=== PATIENT | male | born 1965 | race Caucasian/White ===

== ENCOUNTER → 2016-11-02 | Day surgery (SDC) | payer OTHER ==
[~2016-11-02] MED LIST: ALBUTEROL17 GM INH; ALBUTEROL20 ml INH; AMLODIPINE BESYL5 MG PO; CARAFATE PO; CARAFATE1 G PO; CARAFATE1 GM PO; CIPRO PO; COGENTIN PO; COGENTIN0.5 M1 PO; COGENTIN1 M1 PO; ESOMEPRAZOLE MA40 MG PO; FERRO-TIME325 MG PO; FOLIC ACID1 MG PO; GABITRIL4 MG PO; HALDOL PO; HALOPERIDOL10 MG PO; HYDROCODON-ACE1 EAC7 PO; HYDROXYZINE HCL25 M1 PO; IRON325 ( 651 PO; LEVOXYL125 MC1 PO; LIPITOR PO; LOW DOSE ASPIRI81 M1 PO; MAG-OX 400400 M1 PO; MAGNESIUM400 M1 PO; MAGNESIUM400 MG PO; METRONIDAZOLE PO; NEXIUM PO; NORVASC PO; OLANZAPINE ODT10 MG PO; OMEPRAZOLE40 M1 PO; ONDANSETRON HCL4 M1 PO; PANTOPRAZOLE SO40 MG PO; PROTONIX PO; SENSIPAR60 MG PO; SIMVASTATIN40 MG PO; SYNTHROID125 PO; VITAMIN B122500 MCG PO; ZOFRAN ODT4 MG PO; ZOFRANODT PO; ZYPREXA10 MG PO
--- NOTE | ~2016-11-02 | OR ---
Unit #: [id number] #: [id number] Patient: SOL CUEVAS [id number] [address] [address] [id number] O MR#: [id number] NAME: SOL CUEVAS ROOM: Date of Procedure: 11/02/2016 Admission Date: 11/02/2016 Surgeon: Peter Villa M.D. : 1965 Attending Physician: Peter Villa M.D. Primary Care Physician: Marely Luna A.P.R.N. OPERATIVE REPORT JOB NOTE: CC: PRIMARY CARE PHYSICIAN PROCEDURES PERFORMED Esophagogastroduodenoscopy with biopsy, colonoscopy aborted. INDICATIONS FOR PROCEDURE The patient with chronic abdominal pain, chronic diarrhea, history of nonhealing ulcer, nausea, and vomiting, was brought in for upper endoscopy and colonoscopy. MEDICATIONS Monitored anesthesia. POSTOPERATIVE FINDINGS 1. Previous gastrectomy anastomosis was intact. Large ulcer in the diverticulum right after the anastomosis. Chronic appearing moderate to severe gastritis, biopsies taken. 2. Hiatal hernia, nonobstructing esophageal ring. 3. Colonoscopy is aborted because of presence of hard stool in the rectum. PLAN Repeat attempt at colonoscopy for evaluation. Continue aggressive PPI therapy. Follow up on the pathology report. DESCRIPTION OF PROCEDURE The patient was explained of the procedure, risks, and benefits along with risks and benefits of anesthesia. He was brought to the endoscopy room. Propofol anesthesia was given. Bite block was placed. The scope was passed down the mouth into the esophagus, stomach, duodenum, and distal duodenum. Findings as described. Biopsies taken. Gently, I pulled the scope out of the patient's mouth. At this time, we turned him around repositioned for colonoscopy. Rectal exam was done, which was normal. Colonoscope was lubricated, pushed up the rectum. Solid stool seen at this point, we aborted the procedure, pulled the scope out. He tolerated it well. No major complications were seen. Dictated by... Peter Villa M.D. Unit #: [id number] #: [id number] Patient: SOL CUEVAS MIHIR/juan daniel TD: 11/02/2016 22:52 JOB #: [id number] OPERATIVE REPORT X Peter Villa MD PROCEDURE OPERATIVE NOTE
== END | disposition home or self-care (01) ==
LOC: COPS 12:10
DX: K29.50 Unspecified chronic gastritis without bleeding (principal); K22.2 Esophageal obstruction; K44.9 Diaphragmatic hernia without obstruction or gangrene; K52.9 Noninfective gastroenteritis and colitis, unspecified; E89.0 Postprocedural hypothyroidism; F17.210 Nicotine dependence, cigarettes, uncomplicated; K21.9 Gastro-esophageal reflux disease without esophagitis; Z79.899 Other long term (current) drug therapy; Z90.411 Acquired partial absence of pancreas; Z90.49 Acquired absence of other specified parts of digestive tract; Z90.81 Acquired absence of spleen; Z98.890 Other specified postprocedural states
CPT/HCPCS: 88305; 88312

== ENCOUNTER 2017-02-19 09:46 | Inpatient (IN) | payer OTHER ==
[~2017-02-19] VITALS: Ht 177.8 cm; Wt 61.2 kg
--- NOTE | ~2017-02-19 | OR ---
Unit #: [id number] #: [id number] Patient: SOL CUEVAS [id number] [address] [place], [place] [address] [id number] I MR#: [id number] NAME: SOL CUEVAS ROOM: [facility] Date of Procedure: 02/19/2017 Admission Date: 02/19/2017 Surgeon: Al Mack Jr., M.D. : 1965 Attending Physician: Magda Gracia M.D. Referring Physician: Al Mack Jr., M.D. Primary Care Physician: Marely Luna A.P.R.N. OPERATIVE REPORT INDICATION FOR PROCEDURE The patient is a 51-year-old white male, who was admitted through the emergency room complaining of severe abdominal pain that started suddenly on the morning of his admission. The patient was worked up in the emergency room, noted to have evidence of diffuse abdominal tenderness and CT scan revealed a large amount of free air with some inflammatory changes in the left upper quadrant of his abdomen. The patient approximately 6 months ago did have pancreatectomy while at [facility]. He is brought to the operating room at this time for exploratory laparotomy and possible bowel resection. He has also had a partial gastrectomy in the past. PREOPERATIVE DIAGNOSIS Bowel perforation, probably left upper quadrant. POSTOPERATIVE DIAGNOSES Bowel perforation, probably left upper quadrant, noting perforation of the small bowel, colon and stomach, which appeared to be possibly a fistula or walled-off area in the left upper quadrant with a leak. ANESTHESIA General with endotracheal intubation. PROCEDURE PERFORMED Exploratory laparotomy, lysis of adhesions with takedown of splenic flexure and resection of the splenic flexure the colon and resection of proximal jejunum near the ligament of Treitz with [id number] anastomosis and closure of gastric opening along the greater curvature. Also done was a colostomy in the left upper quadrant. DESCRIPTION OF PROCEDURE The patient was positioned in supine position. After being anesthetized and intubated, he was prepped and draped in routine fashion for exploratory laparotomy. An incision was made extending from the xiphoid down to the umbilical area through the scar from his previous surgery. This was carried down through subcutaneous tissue through the linea alba and through scar tissue into the peritoneal cavity. Upon opening the peritoneal cavity, there were multiple intra-abdominal adhesions that required approximately 20 to 30 minutes to take these down for further exploration. The abdomen was explored and there was evidence of leakage of gastric contents and possibly stool in the left upper quadrant. The splenic flexure was taken down and there was evidence of a hole in the Unit #: [id number] #: [id number] Patient: SOL CUEVAS colon as well as in the stomach on the greater curvature and some involvement with the proximal small bowel, near the ligament of Treitz. This was all freed up. The colon was freed up and stapled proximally and distally with a MAGNUS stapling device and the segment removed that was involved. The small bowel was likewise stapled with a MAGNUS stapling device proximal and distal to the area of the opening in it and a segment removed and then reanastomosed [id number] with a MAGNUS stapling device in routine fashion. The remaining opening was closed with a 3-0 Vicryl Garita stitch followed by interrupted 3-0 silk Lembert sutures. The large opening in the side wall of the stomach was freed up, debrided and closed with continuous 3-0 Vicryl Garita stitch followed by interrupted 3-0 silk Lembert sutures. The area was copiously irrigated with saline solution. The stomach was irrigated via the NG tube by anesthesia with no evidence of any air leaks. A 10 mm Mat-Denney drain was placed in the left upper quadrant abdominal wall area in the subphrenic region and brought out through the lateral wound and sutured to the skin with 2-0 silk suture. After hemostasis was noted, the abdomen was copiously irrigated with saline solution with all debris being removed and once this was performed and hemostasis was then noted again. The colon was brought up through a separate stab wound in the left upper quadrant abdominal wall area and sutured to the fascia both internally and externally with interrupted 3-0 Vicryl sutures. It should be noted the spleen had been removed previously along probably with distal pancreatectomy. The midline was then closed with interrupted #1 Vicryl suture single fascial layer closure. Subcutaneous tissue was irrigated and the skin was loosely closed with stainless-steel skin clips. The colostomy was then matured after the staple line was excised with interrupted 3-0 Vicryl sutures. Colostomy bag was applied. Sterile dressings were applied. Estimated blood loss for the entire procedure less than 200 mL. The patient received less than 3000 mL crystalloid solution during the procedure. Sponges and instrument counts were correct x3. No drains used. No complications. The patient was taken to the recovery in stable vital signs in satisfactory condition. Dictated by... Al Mack Jr., M.D. JMB/juan daniel TD: 02/20/2017 08:23 JOB #: [id number] OPERATIVE REPORT Page 1 of 1 X Al Mack MD X PROCEDURE OPERATIVE NOTE
--- NOTE | ~2017-02-19 | CT14 ---
[facility] A Service of [facility] & [facility] RADIOLOGY TEXT RESULTS PATIENT: SOL CUEVAS LOCATION: [address] : [birth year] UNIT #: [id number] AGE: [address]: Magda Gracia MD SEX: M ORDER DR: [id number] [facility] [address] [facility]. [place], [place] [address] [id number] I MR#: [id number] Acc #: [id number] NAME: SOL CUEVAS : 1965 SEX: M STUDY DATE/TIME: 02/26/2017 11:29 UNIT: [facility] ROOM: [facility] STUDY DESCRIPTION: CT Angio Abdomen and Pelvis Attending Physician: Magda Gracia M.D. Referring Physician: Al Mack Jr., M.D. Ordering Physician: Gian Dillon M.D. Primary Care Physician: Marely Luna A.P.R.N. MEDICAL IMAGING REPORT This report is preliminary unless electronic signature is present EXAM CT angiogram abdomen and pelvis INDICATIONS Perforated viscus. Declining hemoglobin. Concerning for active intraabdominal bleeding. TECHNIQUE CT angiogram of the abdomen and pelvis was performed following administration of IV contrast. Coronal and sagittal reformatted images were obtained. The CT exam was performed with one or more of the following radiation dose reduction techniques: automatic exposure control, adjustment of mA and/or kV according to patient size, and iterative reconstruction. COMPARISON: Comparison is made with 02/19/2017. FINDINGS Trace pleural fluid bilaterally. Minimal bibasilar atelectasis. The liver is unremarkable. The gallbladder is unremarkable. There is a small amount of perihepatic simple fluid. Previous splenectomy. Stable appearance of both kidneys with massive right-sided hydronephrosis and cortical thinning consistent with chronic high-grade UPJ obstruction. Multiple stones seen within the right kidney. Similar appearance on the left but much less significant with probable chronic appearing left UPJ obstruction with multiple stones but there is some normal enhancing renal parenchyma. The adrenal glands are unremarkable. There has been a partial pancreatectomy. There is a drain within the left upper quadrant. NG tube in the stomach. Postoperative changes of the stomach. No STS. [facility] A Service of [facility] RADIOLOGY TEXT RESULTS PATIENT: SOL CUEVAS LOCATION: CICCU2 CICCU2-11 : [birth year] UNIT #: [id number] AGE: [address]: Magda Gracia MD SEX: M ORDER DR: evidence for any significant free air. There is a couple tiny gas bubbles in the left upper quadrant which are likely related to recent surgery. The amount of free air compared with the previous study is significantly declined. There is a left-sided ostomy. IVC filter. Pelvis: There is a small amount of free fluid in the pelvis. Cain catheter in the bladder. The colon is unremarkable. Diffuse subcutaneous edema. Bone windows unremarkable. CT angiogram: The abdominal aorta is normal. The iliac arteries are normal. The celiac artery, SMA, inferior mesenteric artery all normal. Both renal arteries are very small in caliber. There is no evidence for any active arterial contrast extravasation. IMPRESSION 1. The CT angiogram demonstrates no evidence for any active arterial contrast extravasation. 2. There is no evidence of any intraperitoneal hemorrhage. There is a small amount of simple free fluid located adjacent to the liver and also within the deep pelvis. 3. Postoperative changes of the stomach with NG tube. No significant free air, aside from a couple tiny air bubbles located next to the stomach most consistent with recent operation. The amount of free air compared with the previous study shows that it is nearly completely resolved. 4. Stable appearance of the kidneys indicating chronic UPJ obstructions most severe on the right. Dictated by... Jerrell Orr M.D. THIS IS AN ELECTRONICALLY VERIFIED REPORT Jerrell Orr M.D. at 02/27/2017 7:51 AM CHRISTINA/sameer TD: 02/26/2017 14:58 JOB #: [id number] MEDICAL IMAGING REPORT Page 1 of 1 COPY
--- NOTE | ~2017-02-19 | HP ---
Unit #: [id number] #: [id number] Patient: SOL CUEVAS [id number] [address] [address] [id number] MR#: [id number] NAME: SOL CUEVAS ROOM: Age: 51 Sex: M Admission Date: 02/19/2017 : 1965 Attending Physician: Ian Bell M.D. Primary Care Physician: Marely Luna A.P.R.N. HISTORY AND PHYSICAL CHIEF COMPLAINT Abdominal pain and low blood pressure. HISTORY OF PRESENT ILLNESS The patient is a 51-year-old male with a past medical history of MEN syndrome, COPD with continued tobacco abuse, schizophrenia, PE, DVT, nephrolithiasis, GERD, who presented to the emergency department for evaluation of the above. The patient states that he was in his usual state of health until the morning of admission when he developed abdominal pain. The patient states that this morning he drank a coke and then experienced abdominal pain that was fairly sudden in onset. He describes it as "pain." There were no alleviating or exacerbating factors. He states that he had chills but no documented fever. He also was somewhat short of breath. He does have a cough at baseline. He had noticed decreased urine output but did void today. Upon EMS arrival, the patient's blood pressure was 70/40. He was brought to the emergency department for further evaluation. In the emergency department, initial blood pressure was 103/64, pulse 88. CT of the abdomen and pelvis was done and showed free air within the abdominal cavity. There is concern for possible perforation in the region of the splenic flexure. Laboratory notable for lactic acid of 3.2, potassium 2.7, BUN 22, creatinine 2.2. He received 1 liter of normal saline in the emergency department as well as 80 mg of Protonix. He is currently on a Protonix drip at 8 mg/h. He also received a GI cocktail as well as Zosyn. Additionally he received 40 mEq of potassium. Also of note, Hemoccult was trace positive per ER documentation. The patient reports one loose stool this morning. He is being admitted to [facility] for evaluation and further treatment. PAST MEDICAL HISTORY 1. Admission to [facility] in November for some type of stomach issue. The patient states that he had a surgical procedure and possibly had a partial gastrectomy. There are no records. 2. Admission to [facility] 07/07 through 07/13/2016 for GI bleed. 3. Multiple endocrine neoplasia syndrome. 4. Schizophrenia. 5. COPD with continue tobacco abuse. 6. GERD. 7. History of PE/DVT, status post IVC filter placement. Unit #: [id number] #: [id number] Patient: SOL CUEVAS 8. Nephrolithiasis. PAST SURGICAL HISTORY 1. Partial pancreatectomy. 2. Daljit fundoplication. 3. Splenectomy. 4. Thyroidectomy. 5. Kidney stone surgery. 6. Cholecystectomy. 7. EGD. ALLERGIES No known allergies. HOME MEDICATIONS Include: 1. Protonix 40 mg b.i.d. 2. Norvasc 5 mg daily. 3. Levothyroxine 125 mcg daily. 4. Haloperidol 5 mg b.i.d. 5. Carafate 1 gram t.i.d. 6. Cogentin 0.5 mg b.i.d. 7. Sensipar 60 mg daily. SOCIAL HISTORY The patient lives with his mother. He smokes a pack of cigarettes daily. Denies alcohol or illicit drug use. Code status is a FULL CODE. FAMILY HISTORY Notable for his mother having gout. His father had malignancy involving the tongue. REVIEW OF SYSTEMS A complete review of systems is negative except as indicated in the HPI. PHYSICAL EXAMINATION VITAL SIGNS: Temperature 94.9, pulse 88, respirations 20, blood pressure 103/64 but has dropped to 87/61, oxygen saturation is 97% on room air. GENERAL: The patient is a male who is awake and alert. HEENT: Head is atraumatic. Mucous membranes are moist. NECK: Supple. Trachea is midline. LUNGS: Clear to auscultation bilaterally with no increased work of breathing. HEART: Regular rate and rhythm. ABDOMEN: Somewhat rigid. He is tender to palpation throughout. He is guarding. Bowel sounds are decreased. RECTAL: Trace heme-positive per ER documentation. EXTREMITIES: Nontender with no pedal edema. NEUROLOGIC: Patient is awake and alert. He is oriented x3. He follows commands. PSYCHIATRIC: Mood and affect are normal. Patient is cooperative. SKIN OF EXAMINED AREAS: Warm and dry. DIAGNOSTIC STUDIES LABORATORY: Lactic acid 3.2. Comprehensive metabolic panel notable for potassium 2.7, chloride 113, CO2 is 14, anion gap is 8, glucose 179, BUN 22, creatinine 2.2, alkaline phosphatase 137, total protein 5.2, albumin 2.5. Amylase and lipase are normal. Urinalysis notable for 3+ leukocyte Unit #: [id number] #: [id number] Patient: SOL CUEVAS esterase, 1+ protein, 2+ blood, 10-25 rbc's, 100-200 wbc's. Troponin less than 0.05. Complete blood count notable for hemoglobin 11.5, hematocrit 37.3. IMAGING: CT of abdomen and pelvis shows free air within the abdomen concerning for possible colonic perforation. CARDIOVASCULAR: EKG shows normal sinus rhythm at a rate of 65 beats per minute. ASSESSMENT The patient is a 51-year-old male with: 1. Septic shock. The patient received 2 liters of normal saline in the emergency department. He is currently on normal saline at 150 mL/h. 2. Perforated viscus. The emergency room physician, Dr. Collado, spoke with Dr. Mack who agrees to see the patient in consultation. 3. Gastrointestinal bleed. The patient received 80 mg of Protonix in the emergency department. He is currently on Protonix drip at 8 mg/h. 4. History of MEN syndrome. 5. History of neuroendocrine tumor of the pancreas, status post partial pancreatectomy. 6. Hypokalemia. The patient received 40 mEq of potassium in the emergency department. 7. Acute kidney injury. The patient's creatinine was 1.4 on 07/13/2016, it is 2.2 today. 8. Non-anion gap metabolic acidosis. 9. Urinary tract infection. 10. Chronic obstructive pulmonary disease with continued tobacco abuse. 11. Schizophrenia. 12. History of PE/DVT, status post IVC filter placement. 13. Nephrolithiasis. 14. Gastroesophageal reflux disease. PLAN 1. Admit to ICU. 2. N.p.o. 3. Additional 1 liter normal saline bolus. 4. Normal saline at 150 mL/h. 5. Levophed drip for MAP greater than 65. 6. Sepsis protocol with repeat lactic acid. 7. Blood cultures x2. 8. Zosyn 3.375 grams IV q.6 h. 9. Protonix drip at 8 mg/h. 10. Hemoglobin and hematocrit q.6 h. 11. Check magnesium level. 12. Urine sodium, creatinine, and eosinophils. 13. Strict I's and O's. 14. Urine culture and sensitivity on urine in the lab. 15. Repeat BMP later this evening to follow up non-anion gap metabolic acidosis. 16. Supplemental oxygen. 17. Get records from [facility]. 18. Consult [facility] regarding perforated viscus. Dr. Mack is aware of the patient. 19. Consult Dr. Tse regarding ICU admission. 20. Lesia hugger per protocol. 21. TSH. 22. Repeat labs in the morning including magnesium and INR. Unit #: [id number] #: [id number] Patient: SOL CUEVAS 23. SCDs for DVT prophylaxis. 24. Additional workup and consultants based on above. 25. Regarding CODE STATUS: Patient is a FULL CODE. Thirty-two minutes critical care time spent in the care of this patient (2:20 to 2:52 p.m.). Dictated by Lashay Bowles M.D. FELIZ/michelle TD: 02/19/2017 15:28 JOB #: [id number] HISTORY AND PHYSICAL Page 1 of 1 X Lashay Bowles MD HISTORY AND PHYSICAL
--- NOTE | ~2017-02-19 | US140 ---
[facility] A Service of [facility] RADIOLOGY TEXT RESULTS PATIENT: SOL CUEVAS LOCATION: [address] : [birth year] UNIT #: [id number] AGE: [address]: Magda Gracia MD SEX: M ORDER DR: [id number] [facility] [address] [facility]. [place], [place] [address] [id number] I MR#: [id number] Acc #: [id number] NAME: SOL CUEVAS : 1965 SEX: M STUDY DATE/TIME: 03/03/2017 11:07 UNIT: [facility] ROOM: [facility] STUDY DESCRIPTION: [facility] Attending Physician: Magda Gracia M.D. Referring Physician: Al Mack Jr., M.D. Ordering Physician: Magda Gracia M.D. Primary Care Physician: Marely Luna A.P.R.N. MEDICAL IMAGING REPORT This report is preliminary unless electronic signature is present EXAMINATION Right upper extremity Doppler venous ultrasound. DATE 03/03/2017 HISTORY Right upper extremity swelling/edema for 1 week. Previous history of deep venous thrombosis and pulmonary embolism. PICC line in right upper extremity since 01/23/2017. COMPARISON None. FINDINGS Real-time cox-scale, color Doppler and spectral Doppler imaging was performed of the right extremity veins. Extensive deep venous thrombosis is seen within the right upper extremities surrounding the patient's PICC line in the right subclavian, axillary and brachial vein distributions. Additionally, superficial venous thrombus is demonstrated with the basilic vein, as well. The right internal jugular vein was patent. IMPRESSION 1. Extensive right upper extremity deep venous thrombosis is documented within the right subclavian, axillary, and brachial veins. 2. Superficial venous thrombus within the right basilic vein. 3. The nurse practitioner on the ICU 3 floor, and I, discussed these pertinent findings at the time of this dictation, 03/03/2017 at 12:26 p.m. He stated that he would convey the findings to the patient's nurse at this time. Dictated by... [facility] A Service of [facility] RADIOLOGY TEXT RESULTS PATIENT: SOL CUEVAS LOCATION: CIC3 CICCU3-21 : [birth year] UNIT #: [id number] AGE: [address]: Magda Gracia MD SEX: M ORDER DR: Ave Billy M.D. THIS IS AN ELECTRONICALLY VERIFIED REPORT Ave Billy M.D. at 03/06/2017 8:36 AM DEN[place]/radha TD: 03/03/2017 15:26 JOB #: [id number] MEDICAL IMAGING REPORT Page 1 of 1 COPY
--- NOTE | ~2017-02-19 | CO ---
Unit #: [id number] #: [id number] Patient: SOL CRUZ [id number] [address] [address] [id number] I MR#: [id number] NAME: SOL CRUZ ROOM: [facility] Age: 51 Sex: M Admission Date: 02/19/2017 : 1965 Attending Physician: Magda Gracia M.D. Primary Care Physician: Marely Luna A.P.R.N. Consultation Date: 02/20/2017 CONSULTATION REPORT REASON FOR CONSULTATION Acute on chronic kidney disease. HISTORY OF PRESENT ILLNESS Mr. Cruz is a 51-year-old male with multiple chronic medical conditions including chronic kidney disease from polycystic kidney disease and MEN syndrome, who was admitted with abdominal pain and low blood pressure. Evaluation in the emergency room revealed a bowel perforation and the patient has already gone in to surgery for exploratory laparotomy and bowel resection with ostomy. Postoperatively, he has received a lot of IV fluids, but urine output has been minimal with only 20 mL of urine recorded. The patient actually states that he feels okay except some postoperative pain. He denies any chest discomfort or shortness of breath. No reports of hematuria. No headache or dizziness. PAST MEDICAL HISTORY Significant for; 1. Chronic polycystic kidney disease. 2. Parathyroid adenoma. 3. Gastrinoma. 4. DVT/PE, requiring filter. 5. Hypothyroidism. 6. Neuroendocrine tumor of the pancreas. 7. GERD. 8. COPD. 9. Paranoid schizophrenia. 10. Nephrolithiasis. 11. Tobacco abuse. PAST SURGICAL HISTORY He has had; 1. Partial pancreatectomy. 2. Daljit fundoplication. 3. Splenectomy. 4. Thyroidectomy. 5. Surgery for kidney stones. 6. Cholecystectomy. HOME MEDICATIONS Protonix 40 mg twice a day, Norvasc 5 mg a day, Levoxyl 125 mcg a day, Haldol 5 mg twice a day, Carafate 1 g p.o. three times a day, Cogentin 0.5 mg twice a day, and Sensipar 60 mg a day. ALLERGIES Unit #: [id number] #: [id number] Patient: SOL CRUZ He has no known drug allergies. FAMILY HISTORY Significant for gout and cancer. No family history of kidney disease. SOCIAL HISTORY The patient is a smoker. History of alcohol abuse. No known illicit drug use. REVIEW OF SYSTEMS A complete 12-point review of systems was completed with the above findings. In addition, he denies any nosebleed or sore throat. No palpitations. No hemoptysis. No swelling. No rashes. No pruritus. No flank pain. No chills. No night sweats or hot flashes. No intolerance to heat or cold. No preadmission bleeding issues. He is unsure about any weight loss. Unless otherwise indicated, the review of systems was negative. PHYSICAL EXAMINATION VITAL SIGNS: The patient is afebrile. Pulse 89, respiratory rate 20, blood pressure 128/81, lowest blood pressure was 87/61, I's and O's are positive, about 6.8 L. GENERAL: This is a 51-year-old male, lying in bed, fairly comfortable, alert, in no acute distress. HEENT: Head is atraumatic and normocephalic. Eyes show pink conjunctivae with no scleral icterus. No nasal drainage or nosebleed. Oropharynx is dry. NECK: Shows no rigidity. No JVD. HEART: Regular rate and rhythm with no murmur or rub appreciated. LUNGS: Without wheezing or rhonchi. Breathing is nonlabored. ABDOMEN: Soft and postop with midline incision dressed. Ostomy in place with no output noted. EXTREMITIES: No lower extremity cyanosis or pitting edema. SKIN: Dry without rashes. GENITOURINARY: Cain catheter is in place with nonbloody urine. MUSCULOSKELETAL: No joint effusions noted. NEUROLOGICAL: Cranial nerves are grossly intact. No gross motor deficits. PSYCHIATRIC: The patient is known to be schizophrenic and does seem to be a little bit confused. DIAGNOSTIC STUDIES LABORATORY RESULTS: Chest x-ray, done this morning, show well-inflated lungs. No acute pulmonary disease. ABG significant for acidosis with a pH of 7.21 with bicarb of just 13. Urine culture on admission was negative. Chemistry this morning; sodium 133, potassium 4.1, Chloride 112, bicarb 13, glucose 193, BUN 29, creatinine up to 2.8, spot urine sodium was 69, mag was 1.9, INR 1.3. CBC; white count 14, hemoglobin 10, and platelet count 273. Last night, his creatinine was 2.3. CT of the abdomen and pelvis without contrast did show free air. Right kidney was massively enlarged with multiple cyst. Left kidney also had multiple cysts and calcifications. There were multiple stones in the collecting system. It looks like the admission UA did show some red blood cells and white blood cells. Admission creatinine was 2.2 with a lactic acid of 3.2. Prior creatinines have been in the mid to high 1 range. ASSESSMENT AND PLAN 1. Acute on chronic kidney disease, stage 3. Again, the patient has Unit #: [id number] #: [id number] Patient: SOL CRUZ known polycystic kidney disease. His acute kidney injury looks to be prerenal in nature from his hypotension and abdominal sepsis syndrome. He is now postop in oliguric despite fluid resuscitation. Due to his acidosis, we will go ahead and plan for dialysis treatment today for correction, but hope he will recover kidney function within the next few days. 2. Lactic acidosis. This is due to his perforated bowel and bowel ischemia. This should correct postoperatively, but we will monitor. 3. Hypotension. The patient is recovered with fluid resuscitation and we will add pressor as needed. 4. 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 5. Status post bowel perforation and surgery. 6. History of gastrointestinal bleed with ulcers. 7. Chronic obstructive pulmonary disease with tobacco abuse. 8. Schizophrenia. 9. History of pulmonary embolism/deep venous thrombosis. 10. Known kidney stones without obstruction. I would like to thank Dr. Abbott for this consult and the opportunity to participate in evaluation and care of Mr. Cruz. Dictated by... Vikas Ceballos Jr., MRai. ANA LILIA/juan daniel TD: 02/21/2017 05:13 JOB #: [id number] CONSULTATION REPORT Page 1 of 1 X Vikas Ceballos MD X CONSULTATION REPORT
--- NOTE | ~2017-02-19 | A ---
[facility] Nutrition Therapy DATE: 02/20/17 Patient: SOL CUEVAS Physician: FERNANDA Address: [address] [facility] Room/Bed: [address], Zip: [place] [address] Admit Date: 02/19/17 Date of : [birth year] Height: 5 10 Weight: 156 71 NUTRITIONAL ASSESSMENT: REASON: 5 points nutrition screen risk RE: 35# weight loss and for NPO status in ICU 51 yo male admitted for abdominal pain, GI bleed, sepsis now s/p exploratory laparatomy and repair of perforated bowel with colostomy PMH: MEN syndrome, COPD, partial pancreatectomy, schizophrenia, PE, DVT, nephrolithiasis, GERD, duodenal ulcer, s/p Daljit fundoplication, thyroidectomy Anthropometrics: Ht: 5'10" Wt: 71 kg BMI: 22.5 Labs: Na+ 133 Cl- 112 Gluc 193 BUN 29 Creat 2.8 Alb 1.7 GFR 25.2 Meds: Novolog, D5%, sodium bicarbonate, zofran, phenergan, KCl, protonix I/O & Bowel function: 8691/1800, last BM 02/19, NG to LWS (75 mL output last night), s/p Colostomy Skin Integrity: Bruises scattered Edema: None noted Estimated Nutrition Needs: Increased due to weight loss, recent surgery Diet: NPO except ice chips PRN Assessment: Chart reviewed, events noted. 51 yo male admitted for abdominal pain, GI bleed, and septic shock now s/p exploratory laparatomy and repair of perforated bowel with colostomy. Per MD order, pt may have ice chips PRN. Pt has not had anything PO as of yet per RN report. 35# weight loss noted in nursing nutrition screen. RD spoke with the pt at bedside. Pt reports that he has lost weight; however, he is unable to provide amount or time frame of weight loss. Per previous admission weights, the pt weighed 182# in February 2016, indicating ~24# weight loss in one year (13% body weight loss) if current weight is accurate. Pt is a poor historian, also not able to provided specific information when asked about typical PO intake. It seems that the pt's intake in inconsistent. Pt does report that he often vomits after meals, which may be d/t his h/o GERD. Pt states that he does not have an appetite at this time, but he is thirsty and his throat feels "raw". No plans in place for diet advancement or nutrition support at this time. NG to LWS at this time. Renal MD notes MAYNOR on CKD stage 3, with orders for HD today. Please refer to recommendations below. Dx: Inadequate protein-energy intake RT clinical condition, recen bowel surgery AEB NPO [facility] Nutrition Therapy DATE: 02/20/17 Patient: SOL CUEVAS Physician: FERNANDA Address: [address] [place] [address] Room/Bed: [address], Zip: [place] [address] Admit Date: 02/19/17 Date of : [birth year] Height: 5 10 Weight: 156 71 status, NG to LWS. 2) Unplanned weight loss RT clinical condition, PMH, GI issues AEB 24# weight loss in one year, inconsistent nutritional intake reported by the pt. Intervention: 1. NPO 2. Advance diet as tolerated once appropriate Monitoring, Evaluation and Goals: 1. Oral intake; tolerate ice chips, advance diet once feasible 2. Improve labs; glucose, BUN, creat, GFR 3. GI; promote regular GI function 4. Weight; monitor, prevent unintentional weight loss Recommendations: 1. Once medically feasible when NG tube is discontinued, recommend starting the pt on a clear liquid diet. Order Ensure Clear TID if the pt is able to tolerate clear liquids. 2. If the pt consistently tolerates clear liquids, advance to a low fiber diet with 6 small meals as tolerated. 3. If unable to advance to PO diet, consider initiating enteral nutrition with Vital 1.5 or Nepro depending on GI and renal function. RD will follow up with appropriate recommendations. Pt is at moderate-severe nutritional risk. Respectfully, YESSENIA MORIN RD, LD Food and Nutritional Services [facility] cc: client file
--- NOTE | ~2017-02-19 | FU ---
[facility] Nutrition Therapy DATE: 02/23/17 Patient: SOL CUEVAS Physician: FERNANDA Address: [address] [place] [address] Room/Bed: [address] [place] [address], Zip: [place] [address] Admit Date: 02/19/17 Date of : [birth year] Height: 5 10 Weight: 143 65.2 NUTRITION MONITORING/FOLLOW-UP: Reason: TPN nutrition assessment and follow up Anthropometrics: Ht: 5'10" Wt: 65.2 kg (updated standing scale wt) BMI: 20.6 IBW: 75.4 kg (86% IBW) Labs: K+ 3.2 Creat 2.2 Accuchecks 98-105 GFR 33.7 Meds: Novolog, D5%, heparin, zofran, protonix, KCl I&O's: , last BM 02/23, NG to LWS noting 450 mL output x 24 hrs Skin: Puncture to procedure site mid abdomen Edema: None noted Estimated Nutrition Needs: 4523-9968 kcals (30-35 kcals/kg) 78-98 grams protein (1.2-1.5 grams/kg) Diet: NPO Assessment: Chart reviewed, events noted. Pt is s/p exploratory laparatomy and repair of perforated bowel and colostomy. Pt is being started on TPN per MD order/ pharmacy dosing. Pt continues with NG to LWS noting 450 mL output x 24 hrs per I/Os. Please note, this pt is at risk for refeeding syndrome d/t NPO status x 5 days and significant weight loss, likely malnutrition. Please refer to recommendations below. Dx: Inadequate protein-energy intake RT clinical condition, recent bowel surgery AEB NPO status x 5 days, NG to LWS. Intervention: 1. TPN 2. Advance to clear liquid diet once medically feasible Monitoring, Evaluation and Goals: 1. Oral intake; diet advancement- NOT MET 2. Improve labs; glucose, BUN, creat, GFR- IMPROVED 3. GI; promote regular GI function- IN PROGRESS (+BM) 4. Weight; prevent unintentional weight loss- NOT MET [facility] Nutrition Therapy DATE: 02/23/17 Patient: SOL CUEVAS Physician: FERNANDA Address: [address] Room/Bed: [address] [place] [address], Zip: [place] [id number] Admit Date: 02/19/17 Date of : [birth year] Height: 5 10 Weight: 143 65.2 NEW GOALS: 1. Labs; K+, Creat, glucose, accuchecks, monitor phos and Mg++ 2. TPN; provide 80% estimated nutrient needs 3. Oral intake; advance diet once medically feasible 4. Weight; prevent weight loss, promote gradual weight gain towards IBW Recommendations: 1. Replete electrolytes to WNL prior to initiating TPN, noting the pt's risk for refeeding syndrome. 2. Once medically feasible, recommend starting TPN (25% dextrose) at a low rate per pharmacy dosing. Gradually increase to goal of 70 mL/hr over 3-4 days due to the pt's risk for refeeding syndrome. TPN @ 70 mL/hr will provide: 1428 kcals 1764 kcals total 84 grams protein GUR= 4.5 Monitor electrolyte and glucose levels closely 3. Obtain an updated triglyceride level. If triglycerides are WNL, cycle lipids every other day to prevent fatty acid deficiency. This will provide an additional 500 kcals per day for a total of 2264 kcals on days lipids are cycled. 4. Once medically feasible, recommend advancing the pt to a clear liquid diet. If the pt is able to tolerate clear liquids, advance to a low fiber diet + 6 small meals as tolerated. RD tyron follow up to order supplements as diet advances. Status: Pt is at severe nutritional risk. RD will continue to follow hospital course. Respectfully, YESSENIA MORIN RD, LD Food and Nutritional Services [facility] Nutrition Therapy DATE: 02/23/17 Patient: SOL CUEVAS Physician: FERNANDA Address: [address] Room/Bed: [address] [place] [address], Zip: [place] [address] Admit Date: 02/19/17 Date of : [birth year] Height: 5 10 Weight: 143 65.2 cc: client file
--- NOTE | ~2017-02-19 | CO ---
Unit #: [id number] #: [id number] Patient: SOL CRUZ [id number] [facility] [address] [place], [place] [address] [id number] I MR#: [id number] NAME: SOL CRUZ ROOM: 309 Age: 51 Sex: M Admission Date: 02/19/2017 : 1965 Attending Physician: Al Mack Jr., M.D. Primary Care Physician: Marely Luna A.P.R.N. Consultation Date: 03/28/2017 CONSULTATION REPORT REASON FOR CONSULTATION Followup. DISCUSSION Mr. Sol Cruz is a 51-year-old white male, seen in room 309, bed 1 on 03/28/2017 at [facility]. The patient was lying comfortably in bed, dressed in hospital attire. The patient was able to show appropriate behavior, being respectful, cooperative, but still having periods of agitation. The patient's vital signs are stable; temperature 99.2, heart rate 73, respiratory rate 18, blood pressure 105/71, oxygen saturation 99%. The patient is tolerating increasing dosage of Haldol fairly well, had one episode yesterday when he gets mad, angry, upset. The patient is scheduled to go to [facility] soon. Denied any complaints. REVIEW OF SYSTEMS Complete review of systems is unremarkable except as mentioned above. MENTAL STATUS EXAMINATION General appearance; the patient dressed in hospital attire, lying comfortably in bed. Attention span and concentration, fair. Speech is rapid in rate. Oriented in place and person and time. Mood and affect, labile and flat. Thought process, circumstantial. Thought content, guarded and paranoid, but denied any thoughts of harming self or others. Admitted hallucination auditory and visual, and no command hallucination. Recent and remote memory, poor. Language, intact. Fund of knowledge, fair. Insight and judgment, fair to slightly impaired. DIAGNOSIS Psychiatric: Schizophrenia, chronic paranoid type, F20.0. ASSESSMENT/PLAN 1. Supportive psychotherapy and psychoeducation provided to the patient. 2. Educated about benefits and side effects of medication and course and prognosis of illness. 3. The patient was educated about appropriate behavior and impulse control. If needed, consider further adjustment of medication. Please feel free to call if any questions, telephone #[phone]. Dictated by... Cira Mckeon/juan daniel Unit #: [id number] #: [id number] Patient: SOL CRUZ TD: 03/29/2017 01:24 JOB #: [id number] CONSULTATION REPORT Page 1 of 1 X Lamont Sargent MD X CONSULTATION REPORT
--- NOTE | ~2017-02-19 | FU ---
[facility] Nutrition Therapy DATE: 02/27/17 Patient: SOL CUEVAS Physician: FERNANDA Address: [address] [facility] Room/Bed: [address], Zip: [place] [address] Admit Date: 02/19/17 Date of : [birth year] Height: 5 10 Weight: 177 80.5 NUTRITION MONITORING/FOLLOW-UP: Reason: TPN follow-up Anthropometrics: ht: 5'10" wt: 65.2 kg (standing scale 02/23), 80 kg (bed scale) BMI: 20.6 IBW: 75.4 kg (86% IBW) Labs: Glu 190, Creat 2.1, Ca++ 7.9, Alb 1.4, Lip 17, GFR 35.6 Meds: TPN, dextrose 5%, zofran, KCl, fentanyl, versed, morphine, synthroid, morphine sulfate, zosyn, levophed I&O's: 7651/4111. Last BM 02/27. NG to LWS noting 1300 mL output x 24 hours Skin: Puncture to procedure site mid abdomen Edema: none noted Estimated Nutrition Needs: 3807-6342 kcals (30-35 kcal/kg) 78-98 g protein (1.2-1.5 g/kg) Using standing scale weight 65.2 kg Diet: NPO Assessment: Chart reviewed, events noted. Pt is currently NPO on the vent. Pt is s/p exploratory laparatomy and repair of perforated bowel. RD buying intern visited pt at bedside. TPN (dextrose 25%) is currently running at 60 mL/hr and will be advanced to a goal rate of 75 mL/hr, per MD order/pharmacy dosing. The pt had family in the room at time of visit and they reported no questions at this time. RD will remain available. Dx: Inadequate protein-energy intake r/t clinical condition, recent bowel surgery AEB NPO status x 5 days, NG to LWS. -In progress Intervention: 1. TPN 2. Advance to clear liquid diet once medically feasible Monitoring, Evaluation and Goals: 1. Labs; K+ (improved), Creat (no change), glucose (increased), Phos (normal), Mg++ (normal) -In progress 2. TPN; provide >80% estimated nutrient needs -In progress 3. Oral intake; advance diet once medically feasible -NOT MET [facility] Nutrition Therapy DATE: 02/27/17 Patient: SOL CUEVAS Physician: FERNANDA Address: [address] [place] [address] Room/Bed: [address], Zip: [place] [address] Admit Date: 02/19/17 Date of : [birth year] Height: 5 10 Weight: 177 80.5 4. Weight; prevent weight loss, promote gradual weight gain towards IBW -NOT MET/UNMEASURED New Goals: 1. TPN; provide >80^ estimated nutrient needs -In progress 2. Oral intake; advance diet once medically feasible 3. GI; promote regular GI function 4. Weight; prevent weight loss, promote gradual weight gain towards IBW 5. Labs; glucose and electrolytes Recommendations: 1. Continue TPN (dextrose 25%) @ 60 mL/hr and advance 10 mL q 12 hours to goal rate of 70 mL/hr. TPN @ 70 mL/hr will provide: 1428 kcals 1764 kcals total 84 grams protein GUR= 4.5 2. Due to normal triglyceride levels, cycle lipids every other day to prevent fatty acid deficiency. This will provide an additional 500 kcals per day for a total of 2264 kcals on days lipids are cycled. 3. Continue to monitor electrolytes and glucose closely. 4. Once medically feasible, recommend advancing the pt to a clear liquid diet. If the pt is able to tolerate clear liquids, advance to a low fiber diet + 6 small meals as tolerated. RD will follow up to order supplements as diet advances. RD will f/u per protocol as pt is at moderate/severe nutritional risk. Respectfully, MATT GOLDBERG, manager internship Tj Guillen MS, RD, LD Food and Nutritional Services [facility] [place] [facility] Nutrition Therapy DATE: 02/27/17 Patient: SOL CUEVAS Physician: FERNANDA Address: [address] [place] [address] Room/Bed: [address], Zip: [place] [address] Admit Date: 02/19/17 Date of : [birth year] Height: 5 10 Weight: 177 80.5 cc: client file
--- NOTE | ~2017-02-19 | CR72 ---
[facility] A Service of [facility] RADIOLOGY TEXT RESULTS PATIENT: SOL CUEVAS LOCATION: [address] : [birth year] UNIT #: [id number] AGE: [address]: Magda Gracia MD SEX: M ORDER DR: [id number] [facility] [address] [facility]. [place], [place] [address] [id number] I MR#: [id number] Acc #: [id number] NAME: SOL CUEVAS : 1965 SEX: M STUDY DATE/TIME: 02/20/2017 6:47 UNIT: [facility] ROOM: [facility] STUDY DESCRIPTION: CR Chest Single View Portable Attending Physician: Magda Gracia M.D. Referring Physician: Al Mack Jr., M.D. Ordering Physician: Kedar Tse M.D. Primary Care Physician: Marely Luna A.P.R.N. MEDICAL IMAGING REPORT This report is preliminary unless electronic signature is present EXAM Portable chest x-ray, 02/20/2017. HISTORY Sepsis. Septic shock, GI bleed, 02/19/2017 x1 day. Coffee-ground emesis, hypotension, epigastric pain. TECHNIQUE AP radiograph of the chest is presented. COMPARISON 02/19/2017 FINDINGS Right internal jugular central venous catheter unchanged. There has been placement of an enteric tube. Side port is at level of diaphragm. Tip of the enteric tube extends approximately 5-6 cm below the level of the diaphragm. Assuming normal gastric anatomy, this would terminate just beyond the gastroesophageal junction. For placement of tip in side port in mid to distal stomach, the enteric tube could be advanced approximately 10-15 cm and reassessed radiographically. There are multiple surgical clips in the left upper quadrant. There is a surgical drain in the left upper quadrant and there are skin barbara in the right paracentral upper abdomen. Please correlate with operative history. The heart and mediastinum are normal in size and contour. The lungs are well inflated. Slight elevation right hemidiaphragm. There is no evidence of acute pulmonary disease, pleural effusion, or pneumothorax. No suspicious nodule. Dictated by... Justin Casillas M.D. [facility] A Service of [facility] RADIOLOGY TEXT RESULTS PATIENT: SOL CUEVAS LOCATION: [address] : [birth year] UNIT #: [id number] AGE: [address]: Magda Gracia MD SEX: M ORDER DR: THIS IS AN ELECTRONICALLY VERIFIED REPORT Justin Casillas M.D. at 02/21/2017 5:16 PM ARLIN/yohannes TD: 02/20/2017 10:56 JOB #: [id number] MEDICAL IMAGING REPORT Page 1 of 1 COPY
--- NOTE | ~2017-02-19 | CR72 ---
[facility] A Service of [facility] RADIOLOGY TEXT RESULTS PATIENT: SOL CUEVAS LOCATION: C3A 309-01 : 67 UNIT #: [id number] AGE: [address]: Al Mack MD SEX: M ORDER DR: [id number] [place] [id number] [facility]. [place], [place] [address] [id number] I MR#: [id number] Acc #: [id number] NAME: SOL CUEVAS : 1965 SEX: M STUDY DATE/TIME: 03/09/2017 9:25 UNIT: C3A PCU ROOM: [facility] STUDY DESCRIPTION: CR Chest Single View Portable Attending Physician: Al Mack Jr., M.D. Referring Physician: Al Mack Jr., M.D. Ordering Physician: Asher Abbott M.D. Primary Care Physician: Marely Luna A.P.R.N. MEDICAL IMAGING REPORT This report is preliminary unless electronic signature is present EXAM AP chest 03/09/2017 at 09:25 HISTORY Chest pain. Shortness of breath today. History of pancreatic tumor. Previous history of pulmonary embolism. Hypertension. Previous smoking history. COMPARISON AP portable chest 02/28/2017. FINDINGS No acute airspace disease. Tube or drainage catheter projects over left upper quadrant of the abdomen. Surgical clips are present over the midline in the left upper abdomen. Arm approach PICC extends into the lower SVC. Right IJ central line extends to the mid-SVC. Left IJ central line extends to the cavoatrial junction. No visible pneumothorax. Normal heart size. IMPRESSION 1. No acute cardiopulmonary findings. Dictated by... Ave Billy M.D. THIS IS AN ELECTRONICALLY VERIFIED REPORT Ave Billy M.D. at 03/10/2017 9:37 PM DEN[place]/heladio TD: 03/10/2017 00:25 JOB #: [id number] [facility] A Service of [facility] RADIOLOGY TEXT RESULTS PATIENT: SOL CUEVAS LOCATION: [facility] 309-01 : [birth year] UNIT #: [id number] AGE: [address]: Al Mack MD SEX: M ORDER DR: MEDICAL IMAGING REPORT Page 1 of 1 COPY
--- NOTE | ~2017-02-19 | CO ---
Unit #: [id number] #: [id number] Patient: SOL CRUZ [id number] [facility]. [place], [place] [address] [id number] I MR#: [id number] NAME: SOL CRUZ ROOM: 309 Age: 51 Sex: M Admission Date: 02/19/2017 : 1965 Attending Physician: Al Mack Jr., M.D. Primary Care Physician: Marely Luna A.P.R.N. Consultation Date: 03/25/2017 CONSULTATION REPORT REASON FOR CONSULTATION History of schizophrenia, confusion, trouble sleeping, paranoia, hearing voices. HISTORY OF PRESENT ILLNESS Mr. Sol Cruz is a 51-year-old white male, seen in room 309 bed 1 at [facility] on 03/25/2017. The patient was lying comfortably in bed. Answered questions in a monotone voice. The patient's mother was at the bedside. The patient was living at home with his mother. The patient reported hearing voices, seeing things. Denied any command hallucination. Denied any suicidal or homicidal ideation. Reported having trouble sleeping. Carries a diagnosis of schizophrenia. The patient's vital signs; temperature 98.7, pulse 77, respirations 18, blood pressure 97/63, and oxygen saturations 99%. The patient has a history of previous admission at [facility], last admitted in 03/08/2017. The patient was admitted with a diagnosis of septic shock, perforated viscus. Currently reported having hallucination, but no suicidal or homicidal ideation. Trouble sleeping. Denied any use of any drugs or alcohol. PAST PSYCHIATRIC HISTORY Remarkable for history of outpatient treatment for schizophrenia, currently on Haldol since prescribed on last visit. PAST MEDICAL HISTORY The patient has a history of sepsis; perforated bowel; acute blood loss anemia; gastrointestinal bleed, hypovolemic shock, intraabdominal bleed; UTI; acute kidney injury, requiring hemodialysis all the past visit; hypokalemia; thrombocytopenia; severe protein malnutrition; diabetes mellitus type 2; deep venous thrombosis. MEDICATIONS The patient is on Ativan p.r.n., Geodon p.r.n., Haldol 5 mg at bedtime, Synthroid, Accu-Chek. FAMILY HISTORY AND SOCIAL HISTORY The patient lives with his mother, has a good support system. No history of abuse. No history of any substance abuse. REVIEW OF SYSTEMS Complete review of systems is unremarkable except as mentioned above. MENTAL STATUS EXAMINATION Vital signs; temperature 98.7, pulse 77, respirations 18, blood pressure Unit #: [id number] #: [id number] Patient: FAITH,SOL 97/63, and oxygen saturations 99%. General appearance; the patient dressed casually in hospital attire, lying comfortably in bed. Made good eye contact, almost staring. Attention span. Concentration is poor. Speech monotone. Oriented in time, place, and person. Mood and affect, flat. Thought process, circumstantial. Thought content, guarded and paranoid. Reported hallucination auditory and visual. Denied any command hallucination. Denied any suicidal or homicidal ideation. Recent and remote memory, fair. Language, intact. Fund of knowledge, fair. Insight and judgment, fair to slightly impaired. DIAGNOSES Psychiatric: Schizophrenia, chronic paranoid type, F20.0. Secondary diagnosis: Deferred. Medical diagnosis: Please refer to H and P. Stressors: Psychosocial stressor. ASSESSMENT AND PLAN 1. Supportive psychotherapy and psychoeducation provided to the patient. 2. Educated about benefits and side effects of medication and course and prognosis of illness. 3. Advised to continue with current medication. If needed, consider further adjustment of medication depending on response. Please feel free to call if any questions telephone #[phone]. Dictated by... Cira Mckeon/juan daniel TD: 03/27/2017 19:22 JOB #: [id number] CONSULTATION REPORT Page 1 of 1 X Lamont Sargent MD X CONSULTATION REPORT
--- NOTE | ~2017-02-19 | XA75 ---
[facility] A Service of [facility] RADIOLOGY TEXT RESULTS PATIENT: SOL CRUZ [facility] : [birth year] UNIT #: [id number] AGE: [address]: Magda Gracia MD SEX: M ORDER DR: [id number] [id number] [facility]. [place], [place] [address] [id number] I MR#: [id number] Acc #: [id number] NAME: SOL CRUZ : 1965 SEX: M STUDY DATE/TIME: 02/20/2017 13:43 UNIT: C3A PCU ROOM: [facility] STUDY DESCRIPTION: XA CVC Non-Tunnel Attending Physician: Magda Gracia M.D. Referring Physician: Al Mack Jr., M.D. Ordering Physician: Vikas Ceballos Jr., M.D. Primary Care Physician: Marely Luna A.P.R.N. MEDICAL IMAGING REPORT This report is preliminary unless electronic signature is present EXAM Non-tunneled dialysis catheter placement INDICATION Mr. Cruz is a 51-year-old man with polycystic kidney disease. He requires access for dialysis. Patient was diagnosed with polycystic kidney disease on an ultrasound performed March 18, 2014. FINDINGS The procedure was explained to the patient's route sales representative, including risks, benefits, potential complications and potential for alternative forms of treatment. Informed consent was obtained and prior to initiating the procedure a formal time-out procedure was performed. Using all elements of maximal sterile barrier technique including hand hygiene, caps, sterile gowns, gloves and masks the left neck was prepped 2% Chlorhexidine for cutaneous antisepsis and covered with a larger sterile sheet. Real-time sterile ultrasound guidance was used to localize the left internal jugular vein was found to be patent and compressible. A hard copy ultrasound image was obtained after local anesthesia with 1% Xylocaine. The vein was punctured using real-time sterile ultrasound guidance. An 0.018 guidewire was advanced into the superior vena cava under fluoroscopic guidance. A micropuncture sheath was placed an and Amplatz wire was advanced into the inferior vena cava. Tract was serially dilated and removed. Non-tunneled dialysis catheter was advanced over the wire and positioned within the right atrium. Following placement of the catheter it flushed and aspirated easily. Its position was confirmed with a radiographic image. Total fluoroscopy time was 0.2 minutes. AK was 1 mGy. IMPRESSION Successful placement of a left internal jugular vein non-tunneled dialysis catheter. Ultrasound and fluoroscopy were used during the procedure and [facility] Service of [facility] RADIOLOGY TEXT RESULTS PATIENT: SOL CRUZ LOCATION: C3A 314-01 : [birth year] UNIT #: [id number] AGE: [address]: Magda Gracia MD SEX: M ORDER DR: permanent images were saved. Dictated by... Cindy Hoover M.D. THIS IS AN ELECTRONICALLY VERIFIED REPORT Cindy Hoover M.D. at 02/22/2017 11:19 AM AVINASH/jaqueline TD: 02/22/2017 09:31 JOB #: [id number] MEDICAL IMAGING REPORT Page 1 of 1 COPY
--- NOTE | ~2017-02-19 | OR ---
Unit #: [id number] #: [id number] Patient: SOL CUEVAS [id number] [address] [address] [id number] I MR#: [id number] NAME: SOL CUEVAS ROOM: [facility] Date of Procedure: 02/27/2017 Admission Date: 02/19/2017 Surgeon: Kalia Abbott M.D. : 1965 Attending Physician: Magda Gracia M.D. Referring Physician: Al Mack Jr., M.D. Primary Care Physician: Marely Luna A.P.R.N. PROCEDURE OPERATIVE NOTE PROCEDURE Direct endotracheal intubation via laryngoscope. PRE-OP MEDICATIONS 1. Etomidate 20 mg IV x1. 2. Succinylcholine 100 mg IV x1. COMPLICATIONS None. INDICATION FOR PROCEDURE Hemorrhagic shock. DESCRIPTION OF THE PROCEDURE The patient was informed about his condition and that he needed to be on the ventilator. He agreed to proceed with the above procedure. The patient was prepped and positioned in the proper way. Then, he was premedicated with etomidate and succinylcholine. Then, oral suction was applied to his throat, and a good view of his vocal cords was obtained. A size 8 cm ET tube was passed beyond the vocal cords with no complication. The cuff was inflated and connected to the ventilator. Good CO2 color change was obtained, and good bilateral breath sounds were obtained, also. The patient tolerated his procedure well with no immediate complications. Dictated by... Kalia Abbott M.D. EA/ines TD: 02/27/2017 11:40 JOB #: [id number] Unit #: [id number] #: [id number] Patient: SOL CUEVAS PROCEDURE OPERATIVE NOTE Page 1 of 1 X KALIA MAGANA MD X PROCEDURE OPERATIVE NOTE
--- NOTE | ~2017-02-19 | FU ---
[facility] Nutrition Therapy DATE: 03/15/17 Patient: SOL CUEVAS Physician: FERNANDA Address: [address] [place] [address] Room/Bed: [address] [place] [address], Zip: [place] [address] Admit Date: 02/19/17 Date of : [birth year] Height: 5 10 Weight: 148 67.4 NUTRITION MONITORING/FOLLOW-UP: Reason: Follow up Anthropometrics: Ht: 5'10" adm wt: 65.2 kg BMI: 20.6 Wt 03/15: 67.4 kg Labs: Gluc 156 BUN 100 Creat 2.3 Ca++ 10.6 Accuchecks 184-312 GFR 31.9 Meds: TPN @ 100 mL/hr, novolog, lipids, synthroid (IV), protonix, zofran I&O's: 2340/2900, last BM 03/15, colostomy Skin: Coccyx area slightly better per chief electrician note Edema: none noted Estimated Nutrition Needs: 4293-9529 kcals 78-98 grams protein Diet: NPO Assessment: Chart reviewed, events noted. Pt continues on TPN (15% dextrose) @ 100 mL/hr with lipids cycling every other day. Pt had gastrograffin/ UGI study today with no apparent results yet in chart. RD spoke with the pt at bedside. Pt continues to deny having an appetite, stating he is not hungry at all. Pt does deny having abdominal pain at this time. Per chief electrician note, the pt's coccyx area appears somewhat better; however, the pt is refusing intervention to increase his independence/ taking care of himself. Hyperglycemia noted. Please see recommendations below. Dx: Inadequate protein-energy intake RT clinical condition, recent bowel surgery AEB NPO status, pt receiving TPN- ACTIVE Intervention: 1. TPN 2. Advance to clear liquid diet once medically feasible Monitoring, Evaluation and Goals: 1. TPN; provide >80% of the pt's estimated nutrient needs- MET/ CONTINUE 2. GI; promote regular GI function- IN PROGRESS 3. Weight; prevent weight loss/ monitor- IN PROGRESS [facility] Nutrition Therapy DATE: 03/15/17 Patient: SOL CUEVAS Physician: FERNANDA Address: [address] [facility] Room/Bed: [address] [place] [address], Zip: [place] [address] Admit Date: 02/19/17 Date of : [birth year] Height: 5 10 Weight: 148 67.4 4. Labs; monitor/ improve: electrolytes, glucose, BUN, Creat NEW GOALS/ MONITOR: 1. PO diet advancement Recommendations: 1. Continue current TPN (15% dextrose) @ 100 mL/hr + lipids every other day. 2. Optimize the pt's insulin regimen noting hyperglycemia. 3. Continue to monitor electrolytes and glucose levels closely. 4. Once medically feasible, advance the pt to clear liquid diet as tolerated. If unable to advance the pt to PO diet, consider initiating enteral nutrition with Vital 1.5. Please consult RD if ordered by MD. RD will continue to follow up and make recommendations as appropriate. Status: Pt is at moderate nutritional risk. RD will continue to follow. Respectfully, YESSENIA MORIN RD, LD Food and Nutritional Services [facility] cc: client file
--- NOTE | ~2017-02-19 | XA259 ---
[facility] A Service of [facility] RADIOLOGY TEXT RESULTS PATIENT: SOL CUEVAS [address] [birth year] UNIT #: [id number] AGE: [address]: Magda Gracia MD SEX: M ORDER DR: [id number] [id number] [facility]. [place], [place] [address] [id number] I MR#: [id number] Acc #: [id number] NAME: SOL CUEVAS : 1965 SEX: M STUDY DATE/TIME: 03/02/2017 16:15 UNIT: [facility] ROOM: [facility] STUDY DESCRIPTION: ANDERSON Thomas Cath Mi/Retro w/im Attending Physician: Magda Gracia M.D. Referring Physician: Al Mack Jr., M.D. Ordering Physician: Al Mack Jr., M.D. Primary Care Physician: Marely Luna A.P.R.N. MEDICAL IMAGING REPORT This report is preliminary unless electronic signature is present EXAM Ultrasound-guided abscess drainage dated 03/02/2017. HISTORY Recent surgery; likely gastric leak, the left upper quadrant fluid collection. PROCEDURE The procedure, attendant risks, and options were discussed at length with the patient, who understands and wishes to proceed. The patient was placed in the Angio Suite in the supine position. An appropriate site was chosen by ultrasound. The skin was subsequently marked, and then prepped and draped, utilizing maximum sterile barrier technique appropriate for the procedure and guidelines and under local anesthesia. A 5 [place] catheter was inserted. A 0.035 wire was placed, and serial dilatation performed, and a 16 [place] drainage catheter placed. This was hooked to suction, and approximately 800-900 mL of gastric contents were aspirated. Specimens were sent to the lab. This was sewn in place with 2-0 silk and left to low continuous suction. The patient was returned to the borja in stable condition. A total of 4 spot radiographs were obtained. Total fluoroscopy time was 1 minute. Total exposure 11 mGy air kerma standard. CONCLUSION Successful drainage of the left upper quadrant abscess. Dictated by... Justin Ruano M.D. THIS IS AN ELECTRONICALLY VERIFIED REPORT [facility] A Service of [facility] RADIOLOGY TEXT RESULTS PATIENT: SOL CUEVAS LOCATION: [address] : [birth year] UNIT #: [id number] AGE: [address]: Magda Gracia MD SEX: M ORDER DR: Justin Ruano M.D. at 03/04/2017 9:32 AM DARWIN/jenna TD: 03/03/2017 15:13 JOB #: [id number] MEDICAL IMAGING REPORT Page 1 of 1 COPY
--- NOTE | ~2017-02-19 | FU ---
[facility] Nutrition Therapy DATE: 03/10/17 Patient: SOL CUEVAS Physician: FERNANDA Address: [address] [place] [address] Room/Bed: [address] [place] [address], Zip: [place] [address] Admit Date: 02/19/17 Date of : [birth year] Height: 5 10 Weight: 153 69.4 NUTRITION MONITORING/FOLLOW-UP: Reason: TPN follow up Anthropometrics: Wt: 69.4 kg (wt trending up since admission. Edema noted) Labs: K+ 3.2 Gluc 282 BUN 88 Creat 3.3 Alb 1.9 Accuchecks 66-179 GFR 20.6 Meds: TPN (15% dextrose) @ 100 mL/hr- currently held, 20% 250 mL lipids (every other day), bumex, NaCl, synthroid (IV), protonix, novolog, zofran I&O's: 2725/3625, lsat BM 03/09- liquid stool in ostomy Skin: no changes in skin noted since previous assessment Edema: 2+ VICKY/ BLE Pitting edema- BL feet Generalized to hips/ trunk Estimated Nutrition Needs: 4625-4595 kcals (30-35 kcals/kg) 78-98 grams protein (1.2-1.5 grams/kg) Diet: NPO Assessment: Chart reviewed, events noted. Pt remains on TPN, now with 15% dextrose solution @ 100 mL/hr and lipids cycling every other day. RD spoke with RN who reports TPN is currently on hold d/t hypoglycemia. Pharmacy is currently mixing a new bag of TPN without insulin, and it will be resumed when that is received. UGI is scheduled for Tuesday 03/13. It appears that the pt's renal labs have worsened. No plans for PO diet at this time. Please see recommendations below. Dx: Inadequate protein-energy intake RT clinical condition, bowel surgery AEB pt receiving TPN, NPO- ACTIVE Intervention: 1. TPN 2. PO diet once medically feasible Monitoring, Evaluation and Goals: 1. TPN; provide >80% estimated nutrient needs- IN PROGRESS [facility] Nutrition Therapy DATE: 03/10/17 Patient: SOL CUEVAS Physician: FERNANDA Address: [address] [place] [address] Room/Bed: [address] [place] [address], Zip: [place] [address] Admit Date: 02/19/17 Date of : [birth year] Height: 5 10 Weight: 153 69.4 2. GI; promote regular GI function- NOT MET/ IN PROGRESS 3. Weight; monitor, prevent loss of lean body mass- UNKNOWN/ EDEMA NOTED 4. Improve labs; glucose, BUN, creat, GFR, Na+ CONTINE TO MONITOR ABOVE GOALS Recommendations: 1. Resume TPN 15% dextrose @ 100 mL/hr and cycle lipids as ordered by pharmacy. 2. Continue to monitor glucose and electrolyte levels closely. 3. Once medically feasible and deemed appropriate per surgical team, advance the pt to a clear liquid diet as tolerated and monitor closely for symptoms of intolerance. Status: Pt is at moderate-severe nutritional risk. RD will continue to follow. Respectfully, YESSENIA MORIN RD, LD Food and Nutritional Services [facility] cc: client file
--- NOTE | ~2017-02-19 | FU ---
[facility] Nutrition Therapy DATE: 03/20/17 Patient: SOL CUEVAS Physician: FERNANDA Address: [address] [facility] Room/Bed: [address], Zip: [place] [address] Admit Date: 02/19/17 Date of : [birth year] Height: 5 10 Weight: 134 61.2 NUTRITION MONITORING/FOLLOW-UP: Reason: TPN follow up Anthropometrics: Ht: 5'10" Adm wt: 65.2 kg BMI: 20.6 Wt last updated on 03/17: 61.2 kg Pt has refused weights since 03/17 Labs: (Last updated 03/19) Cl- 113 Gluc 139 BUN 71 Creat 1.7 GFR 46 (Last updated 03/20) Accuchecks 132-146 Meds: 20% 250 mL lipids (every other day), TPN (15% dextrose) @ 100 mL/hr + MVI + minerals, sodium bicarbonate, zofran, protonix, novolog, synthroid I&O's: 2680/2850, last BM 03/19 Skin: no changes since previous assessment, no edema noted Estimated Nutrition Needs: 4442-5950 kcals (30-35 kcals/kg) 78-98 grams protein (1.2-1.5 grams/kg) Diet: NPO except one popsicle per shift Assessment: Chart reviewed, events noted. Pt continues to receive TPN as noted above with lipids every other day. Pt is still NPO, now able to have one popsicle per shift. Pt with gastric leak and drainage back to right abdomen. HD access has been removed. Per CM note, when the pt consumes a popsicle, the drainage bag contents turn the color of the popsicle. Pt is being uncooperative, refusing labs and being weighed at times. Please refer to recommendations below. Dx: Inadequate protein-energy intake RT clinical condition, bowel surgery AEB NPO status, pt receiving TPN- ACTIVE Intervention: 1. TPN 2. Advance to clear liquid diet once medically feasible Monitoring, Evaluation and Goals: 1. TPN; provide >80% estimated nutrient needs- MET/ CONTINUE 2. GI; promote regular GI function- IN PROGRESS 3. Weight; prevent weight loss/ monitor- NOT MET/ PT REFUSING WEIGHTS SINCE 03/17 [facility] Nutrition Therapy DATE: 03/20/17 Patient: SOL CUEVAS Physician: FERNANDA Address: [address] [place] [address] Room/Bed: [address] [place] [address], Zip: [place] [address] Admit Date: 02/19/17 Date of : [birth year] Height: 5 10 Weight: 134 61.2 4. Labs; monitor/ improve: electrolytes, glucose, BUN, creat- IMPROVED/ IN PROGRESS 5. PO diet advancement- IN PROGRESS (Popsicle every shift) CONTINUE TO MONITOR ABOVE GOALS Recommendations: 1. Continue current TPN (15% dextrose) @ 100 mL/hr + lipids every other day. 2. Continue to monitor electrolytes and glucose levels closely. 3. Once medically feasible, advance the pt to a clear liquid diet as tolerated and deemed appropriate by surgical team. If unable to advance to PO diet, consider initiating enteral nutrition as medically feasible. Please consult RD if ordered by MD. Status: Pt is at moderate nutritional risk. RD will continue to follow. Respectfully, YESSENIA MORIN RD, LD Food and Nutritional Services [facility] cc: client file
--- NOTE | ~2017-02-19 | CR72 ---
[facility] A Service of [facility] & [facility] RADIOLOGY TEXT RESULTS PATIENT: SOL CUEVAS LOCATION: [address] : [birth year] UNIT #: [id number] AGE: [address]: Magda Gracia MD SEX: M ORDER DR: [id number] [facility] [address] [place], [place] [address] [id number] I MR#: [id number] Acc #: [id number] NAME: SOL CUEVAS : 1965 SEX: M STUDY DATE/TIME: 02/27/2017 12:02 UNIT: [facility] ROOM: [facility] STUDY DESCRIPTION: CR Chest Single View Portable Attending Physician: Magda Gracia M.D. Referring Physician: Al Mack Jr., M.D. Ordering Physician: Physician Non-Staff Primary Care Physician: Marely Luna A.P.R.N. MEDICAL IMAGING REPORT This report is preliminary unless electronic signature is present EXAM Portable chest INDICATIONS Endotracheal tube placement. Comparison with earlier today. FINDINGS Interval placement of endotracheal tube, the tip lying in satisfactory position above the niharika. There is improved inspiratory volume. There has been no other interval change. IMPRESSION Endotracheal tip lies in satisfactory position above the niharika. Dictated by... Jerrell Orr M.D. THIS IS AN ELECTRONICALLY VERIFIED REPORT Jerrell Orr M.D. at 02/27/2017 4:00 PM CHRISTINA/sameer TD: 02/27/2017 15:02 JOB #: [id number] MEDICAL IMAGING REPORT Page 1 of 1 COPY
--- NOTE | ~2017-02-19 | FU ---
[facility] Nutrition Therapy DATE: 03/28/17 Patient: SOL CUEVAS Physician: FERNANDA Address: [address] [facility] Room/Bed: [address], Zip: [place] [address] Admit Date: 02/19/17 Date of : [birth year] Height: 5 10 Weight: 134 61.2 NUTRITION MONITORING/FOLLOW-UP: Reason: TPN (DAY 32) FOLLOW-UP Anthropometrics: 5'10", WT: 134# (61 KG), BMI: 19.2 -LAST WEIGHT WAS 03/17/17: PT REFUSING BEING WEIGHED SINCE 03/17 PER INFO IN [facility] AND RN Labs: BUN: 51, CREAT: 1.5, CA+:10.6, ALB: 2.0, GFR: 53.5 Meds: LIPIDS, TPN, MVI, ZOFRAN, PROTONIX, NOVOLOG, SYNTHROID I&O's: 7706/1070 Skin: STAGE II PRESSURE ULCER TO COCCYX (PT REFUSING TREATMENTS PER NOTES IN [facility]) Estimated Nutrition Needs: [id number] KCAL 78-98 G PRO Assessment: CHART REVIEWED AND EVENTS NOTED. PT IS DAY 32 OF TPN. PT CONTINUES TO RECEIVE TPN 15% DEXTROSE, 5% @ 100 ML/HR + LIPIDS EVERY OTHER DAY. PER RN AND CHART, PT NOTED TO BE COMBATIVE AND INAPPROPRIATE YESTERDAY. RD TO CONTINUE TO FOLLOW/REMAIN AVAILABLE. PER CHART, ?D/C PLANS FOR KALI. Dx: INADEQUATE PROTEIN-ENERGY INTAKE R/T CLINICAL CONDITION, BOWEL SURGERY AEB NPO STATUS, PT RECEIVING TPN.-ACTIVE Intervention: 1. NPO 2. TPN Monitoring, Evaluation and Goals: 1. TPN; PROVIDE >80% ESTIMATED NEEDS-IN PROGRESS/MET 2. GI; PROMOTE REGULAR GI FUNCTION-IN PROGRESS 3. WEIGHT; PREVENT WEIGHT LOSS/MONITOR-NOT MET/PT CONTINUES TO REFUSE WEIGHTS 4. LABS; MONITOR/IMPROVE: ELECTROLYTES, GLU, BUN, CREAT-IMPROVING 5. PO DIET ADVANCEMENT-NOT MET MONITOR ABOVE GOALS Recommendations: 1. CONTINUE CURRENT TPN ORDERS PER PHARMACY 2. CONTINUE TO MONITOR ELECTROLYTES AND GLUCOSE LEVELS CLOSELY [facility] Nutrition Therapy DATE: 03/28/17 Patient: SOL CUEVAS Physician: WETANG Address: [address] [place] [address] Room/Bed: [address] [place] [address], Zip: [place] [address] Admit Date: 02/19/17 Date of : 67 Height: 5 10 Weight: 134 61.2 3. ONCE MEDICALLY FEASIBLE AND DEEMED APPROPRIATE PER SURGICAL TEAM, ADVANCE DIET TOLERATED TO CLEAR LIQUID DIET. RD TO FOLLOW. RD WILL F/U PER PROTOCOL PT IS MODERATELY COMPROMISED Respectfully, LORA ROWELL MS, RD, LD Food and Nutritional Services [facility] cc: client file
--- NOTE | ~2017-02-19 | FU ---
[facility] Nutrition Therapy DATE: 03/03/17 Patient: SOL CUEVAS Physician: FERNANDA Address: [address] [facility] Room/Bed: [address], Zip: [place] [address] Admit Date: 02/19/17 Date of : [birth year] Height: 5 10 Weight: 178 81 NUTRITION MONITORING/FOLLOW-UP: Reason: TPN FOLLOW UP Anthropometrics: Ht: 5'10" Adm wt: 65.2 kg BMI: 21 Wt 03/03: 81 kg (likely inaccurate in comparison to standing scale weight. Edema noted) Labs: K+ 3.3 BUN 57 Creat 3.9 Alb 1.5 Accuchecks 66-151 GFR 16.9 Meds: TPN- not running at this time (being mixed per RN report), bumex, synthroid (IV), sodium bicarbonate, protonix, novolog, zofran, NaCl I&O's: 2840/2840, last BM 03/02, LUQ large amount of drainage per MD note Skin: Jaundiced Excoriation/ redness to left groin Dressing to old NAGA site- left abdomen Dressing to left groin Edema: Scrotal/ BLE 2+ Pitting BL pedal Trace- BL hands Estimated Nutrition Needs: 2737-9084 kcals (30-35 kcals/kg) 78-98 grams protein (1.2-1.5 grams/kg) Assessment: Chart reviewed, events noted. Pt was transfered to the ICU this AM to be more closely monitored with abominal pain/ abscess and gastric leak noted. Pt is NPO once again due to this (previously on a clear liquid diet). RD spoke with the pt at bedside. Pt states that he has no appetite and he is very thirsty complaining of abdominal pain. RD explained NPO order to the pt. TPN is not hanging at this time, and RN reports that this is d/t the TPN being mixed currently. Pt denied having any questions for RD at this time. Dx: Inadequate protein-energy intake RT clinical condition, recent bowel surgery AEB pt receiving TPN, NPO status- ACTIVE Intervention: 1. TPN 2. Advance to clear liquids once feasible [facility] Nutrition Therapy DATE: 03/03/17 Patient: SOL CUEVAS Physician: FERNANDA Address: [address] [place] [address] Room/Bed: [address], Zip: [place] [address] Admit Date: 02/19/17 Date of : [birth year] Height: 5 10 Weight: 178 81 Monitoring, Evaluation and Goals: 1. TPN; provide >80% estimated nutrient needs- IN PROGRESS 2. Oral intake- NOT MET/ NO LONGER RELEVANT (PT IS NOW NPO) 3. GI; promote regular GI function- NOT MET/ CONTINUE 4. Weight; prevent weight loss- UNKNOWN D/T EDEMA/ IN PROGRESS 5. Improve labs; electrolytes (NOT MET/ CONTINUE) NEW GOALS (IN ADDITION TO ABOVE) 1. Improve labs; K+, BUN, creat, GFR Recommendations: 1. Replete K+ to WNL PRN. 2. Resume TPN (25% dextrose) @ 75 mL/hr to provide: 1530 kcals dextrose 1890 kcals total 90 grams protein GUR= 4.8 3. Continue to monitor electrolytes and glucose levels closely. 4. Recommend cycling 20% 250 mL lipids every other day to prevent fatty acid deficiency. This will provide an additional 500 kcals for a total of 2390 kcals on days lipids are cycled. 5. Once medically feasible and deemed appropriate per surgical team, advance the pt to a clear liquid diet as tolerated and monitor closely for symptoms of intolerance. Order Ensure clear TID once diet advances. Status: Pt is at severe nutritional risk. RD will continue to follow hospital course. Respectfully, YESSENIA MORIN, LEW, LD Food and Nutritional Services [facility] cc: client file
--- NOTE | ~2017-02-19 | CO ---
Unit #: [id number] #: [id number] Patient: SOL CUEVAS [id number] [address] [address] [id number] MR#: [id number] NAME: SOL CUEVAS ROOM: Age: 51 Sex: M Admission Date: 02/19/2017 : 1965 Attending Physician: Ian Bell M.D. Primary Care Physician: Marely Luna A.P.R.N. CONSULTATION REPORT REASON FOR CONSULTATION Critical care management. CHIEF COMPLAINT Abdominal pain. HISTORY OF PRESENT ILLNESS This patient basically is a 51-year-old male who has a significant past medical history who presents with complaint of abdominal pain, was found to be hypotensive, systolic blood pressure of 70 but complained of epigastric pain for a few days, associated with some coffee ground emesis. I am seeing the patient at bedside complaining of abdominal pain. His abdomen is tense and tender diffusely. He is planned to go for exploratory laparotomy. Currently, blood pressure is stable. Central line has been placed. REVIEW OF SYSTEMS Positive for pallor. No edema, no cyanosis, no jaundice. The rest as per History of Present Illness. The rest of the twelve point review of systems has been reviewed and is negative. PAST MEDICAL HISTORY Significant for: 1. Lower extremity DVT. 2. COPD. 3. Hypertension. 4. Multiple endocrine neoplasias. 5. Chronic anemia. 6. Duodenal bulb ulcer. 7. Seizure disorder. 8. History of pancreatectomy. 9. Gastroesophageal reflux disease. 10. Chronic kidney disease. SURGICAL HISTORY 1. Pancreatectomy. 2. Daljit fundoplication. 3. Splenectomy. 4. Thyroidectomy. 5. Kidney stones. 6. Cholecystectomy. SOCIAL HISTORY Unit #: [id number] #: [id number] Patient: SOL CUEVAS Positive smoking. No alcohol, no drug abuse. FAMILY HISTORY Positive for lung cancer. Mother has gout. MEDICATIONS 1. Carafate. 2. Folic acid. 3. Synthroid. 4. Pantoprazole. 5. Iron. 6. Zofran. 7. Magnesium. 8. Vitamins. 9. Albuterol. PHYSICAL EXAMINATION VITAL SIGNS: Currently, patient's temperature is 95, pulse 77, respirations 16, blood pressure 110/70. NEUROLOGICAL: Awake, alert, oriented. No neuro deficit. HEENT: PERRLA. NECK: Supple. No JVD. CHEST: Bilateral air entry, bilateral mild rhonchi. GI: Diffuse tenderness. Absent bowel sounds. ASSESSMENT AND PLAN 1. Septic shock associated with gastrointestinal bleed. 2. History of multiple endocrine neoplasias. 3. Hypokalemia. 4. Acute kidney disease. 5. Non-anion metabolic acidosis. 6. Urinary tract infection. 7. Chronic obstructive pulmonary disease. 8. Tobacco use. 9. History of schizophrenia. 10. Gastroesophageal reflux disease. Plan is to continue patient on oxygen, bronchodilator, IV antibiotics, broad spectrum antibiotics and IV fluids. GI and DVT prophylaxis. Continue PPI. Surgical consult. Admit to ICU. Exploratory laparotomy has been planned. Will continue to follow. Please see orders for detailed plan. Thank you very much for this consultation. Dictated by... Kedar Tse M.D. MARCO/janene TD: 02/19/2017 16:21 JOB #: [id number] Unit #: [id number] #: [id number] Patient: SOL CUEVAS CONSULTATION REPORT Page 1 of 1 X Kedar Tse MD X CONSULTATION REPORT
--- NOTE | ~2017-02-19 | CT4 ---
[facility] A Service of [facility] & [facility] RADIOLOGY TEXT RESULTS PATIENT: SOL CUEVAS LOCATION: C3A 314-01 : [birth year] UNIT #: [id number] AGE: [address]: Magda Gracia MD SEX: M ORDER DR: [id number] [facility] [address] [facility] [address]. [place], [place] [address] [id number] I MR#: [id number] Acc #: [id number] NAME: SOL CUEVAS : 1965 SEX: M STUDY DATE/TIME: 02/19/2017 13:52 UNIT: CPACUOF ROOM: STUDY DESCRIPTION: CT Abd and Pelv Wo Cont Attending Physician: Al Mack Jr., M.D. Referring Physician: Al Mack Jr., M.D. Ordering Physician: Ian Bell M.D. Primary Care Physician: Marely Luna A.P.R.N. MEDICAL IMAGING REPORT This report is preliminary unless electronic signature is present EXAM CT of the abdomen and pelvis without contrast media HISTORY Bilateral lower quadrant pain and testicular pain beginning today, hypotension. History of pancreatitis. TECHNIQUE Axial imaging of the abdomen and pelvis was performed without contrast media. This CT exam was performed with one or more of the following radiation dose reduction techniques: Automatic exposure control, adjustment of mA and/or kV according to patient size, and iterative reconstruction. FINDINGS Scans through the lung bases show evidence of severe emphysematous and interstitial lung disease. Scans through the liver parenchyma are remarkable only for extrinsic compression from an enlarged right kidney. There is free air within the abdomen. There is an hiatal hernia. The right kidney is massively enlarged with multiple cysts. There are dependent calcifications within these cysts. Left kidney is also remarkable for multiple cysts again associated with multiple calcifications. There are also multiple stones in the collecting system. There appears to be a large stone within the right renal pelvis measuring at least 3 cm in diameter. There is fluid in both paracolic gutters, right greater than left. There is dependent fluid in the pelvis. There are inflammatory changes identified around multiple bowel loops in the left upper quadrant. The largest amount of air is identified associated with the splenic flexure of the colon. This is probably best appreciated on the coronal images. I am concerned that this represents a focal perforation of the colon in the left upper quadrant. Several of the adjacent small bowel loops are thickened. Patient has apparently had a prior gastric resection or gastric bypass. Caval filter is present. [facility] A Service of [facility] RADIOLOGY TEXT RESULTS PATIENT: SOL CUEVAS LOCATION: C3A 314-01 : [birth year] UNIT #: [id number] AGE: [address]: Magda Gracia MD SEX: M ORDER DR: There is a Cain catheter in the bladder. Spleen is absent. CONCLUSION 1. Pneumoperitoneum. Patient does have fluid in the paracolic gutters, right greater than left. There is marked inflammatory changes in the left upper quadrant and I suspect colon perforation in the splenic flexure given the adjacent inflammation. 2. Cystic-appearing kidneys, presumably polycystic, with multiple stones throughout the cysts and stones throughout the collecting system of both kidneys. 3. Absent spleen, markedly atrophic pancreas. 4. Status post IVC filter. Findings called to the ER at the time of this dictation. Dictated by... Justin Ruano M.D. THIS IS AN ELECTRONICALLY VERIFIED REPORT Justin Ruano M.D. at 02/23/2017 7:15 AM DARWIN/leoncio TD: 02/19/2017 21:23 JOB #: [id number] MEDICAL IMAGING REPORT Page 1 of 1 COPY
--- NOTE | ~2017-02-19 | CT4 ---
[facility] A Service of [facility] & [facility] RADIOLOGY TEXT RESULTS PATIENT: SOL CUEVAS LOCATION: C3A 309-01 : [birth year] UNIT #: [id number] AGE: [address]: Al Mack MD SEX: M ORDER DR: [id number] [facility] [address] [facility]. [place], [place] [address] [id number] I MR#: [id number] Acc #: [id number] NAME: SOL CUEVAS : 1965 SEX: M STUDY DATE/TIME: 03/10/2017 16:21 UNIT: C3A PCU ROOM: 309 STUDY DESCRIPTION: CT Abd and Pelv Wo Cont Attending Physician: Al Mack Jr., M.D. Referring Physician: Al Mack Jr., M.D. Ordering Physician: Al Mack Jr., M.D. Primary Care Physician: Marely Luna A.P.R.N. MEDICAL IMAGING REPORT This report is preliminary unless electronic signature is present EXAM CT of the abdomen and pelvis without contrast. INDICATIONS Abdominal pain since February 18. Follow up abscess. TECHNIQUE CT scan of the abdomen and pelvis was performed without contrast. Coronal and sagittal reformatted images were obtained. COMPARISON Comparison is made with 03/02/2017. This CT exam was performed with one or more of the following radiation dose reduction techniques: automatic exposure control, adjustment of mA and/or kV according to patient size, and iterative reconstruction. FINDINGS Decrease in size of bilateral pleural effusions. Persistent atelectasis/consolidation in the lung bases. The liver is unremarkable. Large fluid collection again noted in the left upper quadrant. It is slightly decreased in size measuring 15.2 x 7.7 cm. Previously it was 16.2 x 7.9 cm. There is a drain within the collection. The tip of the drain is located mostly within the air portion of the collection. Stable atrophy in the left kidney with multiple calculi. Stable appearance of the right kidney. There appears to be a large defect within the wall of the stomach. The appearance of the pancreas is stable. There is an IVC filter. Cain catheter in the bladder. Small amount of free fluid the pelvis. Stable ostomy on the left. The bone windows are unremarkable. IMPRESSION 1. Interval placement of a drainage catheter within a large air-fluid collection in the left upper quadrant but the collection is not STS. [facility] A Service of [facility] & [facility] RADIOLOGY TEXT RESULTS PATIENT: SOL CUEVAS LOCATION: C3A 309-01 : [birth year] UNIT #: [id number] AGE: [address]: Al Mack MD SEX: M ORDER DR: really that smaller. There is a large defect, however, within the wall of the stomach adjacent to the collection. 2. The pleural effusions have decreased in size bilaterally. 3. The remainder of the study is not significantly changed. Dictated by... Jerrell Orr M.D. THIS IS AN ELECTRONICALLY VERIFIED REPORT Jerrell Orr M.D. at 03/15/2017 1:32 PM CHRISTINA/radha TD: 03/10/2017 23:37 JOB #: [id number] MEDICAL IMAGING REPORT Page 1 of 1 COPY
--- NOTE | ~2017-02-19 | CO ---
Unit #: [id number] #: [id number] Patient: SOL CRUZ [id number] [facility] [address] [facility]. [place], [place] [address] [id number] MR#: [id number] NAME: SOL CRUZ ROOM: 309 Age: 51 Sex: M Admission Date: 02/19/2017 : 1965 Attending Physician: Al Mack Jr., M.D. Primary Care Physician: Marely Luna A.P.R.N. Consultation Date: 03/26/2017 CONSULTATION REPORT REASON FOR CONSULTATION Followup. DISCUSSION Mr. Sol Cruz is a 51-year-old white male, seen in room 309 bed 1 on 03/26/2017 at [facility]. The patient carries a diagnosis of schizophrenia, compliant with medication. The patient was able to answer questions appropriately. Denied any agitation. Still reporting auditory and visual hallucination, no command hallucination. Denied any suicidal ideation. The patient's vital signs stable; temperature 98.7, pulse 69, blood pressure 111/75, oxygen saturation 100%. REVIEW OF SYSTEMS Complete review of systems unremarkable. MENTAL STATUS EXAMINATION General appearance, the patient dressed in hospital attire, lying comfortably in bed, has an IV. Attention span and concentration, fair. Speech, monotone. Oriented in place and person. Mood and affect, sad, dysphoric, flat affect. Thought process, concrete. Circumstantial thought content. The patient denied any thoughts of harming self or others, but having auditory and visual hallucination, no command hallucination. Recent and remote memory, fair. Language, intact. Fund of knowledge, fair. Insight and judgment, fair to slightly impaired. DIAGNOSES Psychiatric: Schizophrenia, chronic, paranoid type, F20.0. Secondary diagnosis: Deferred. Medical diagnosis: Please refer to H and P. ASSESSMENT AND PLAN 1. Supportive psychotherapy and psychoeducation provided to the patient. 2. Educated about benefits and side effects of medication and course and prognosis of illness. 3. Advised to continue with current combination of medication and if needed, consider further adjustment of medication. Please feel free to call if any questions telephone #[phone]. Dictated by... Lamont Sargent M.D. Unit #: [id number] #: [id number] Patient: SOL CRUZ TOMMY/juan daniel TD: 03/27/2017 20:45 JOB #: [id number] CONSULTATION REPORT Page 1 of 1 X Lamont Sargent MD CONSULTATION REPORT
--- NOTE | ~2017-02-19 | FU ---
[facility] Nutrition Therapy DATE: 03/07/17 Patient: SOL CUEVAS Physician: FERNANDA Address: [address] [place] [address] Room/Bed: [address] [place] [address], Zip: [place] [address] Admit Date: 02/19/17 Date of : [birth year] Height: 5 10 Weight: 174 79.2 NUTRITION MONITORING/FOLLOW-UP: Reason: TPN follow up Anthropometrics: Ht: 5'10" Adm wt: 65.2 kg BMI: 20.6 IBW: 75.4 kg, 86% IBW Wt 03/06: 79.2 kg (inaccurate based on the pt's admission weight) Labs: Na+ 146 gluc 206 BUN 59 Creat 3.3 Alb 1.7 Accuchecks 197-247 GFR 20.6 Meds: TPN @ 100 mL/hr, bumex, NaCl, synthroid, protonix, novolog, zofran, NaCl, MVI + minerals (in TPN) I&O's: 3071/3578, last BM 03/06- brown liquid stool in ostomy Skin: Excoriation/ redness- groin Surgical incision abdomen Deep tissue injury right upper buttock Large bruise left flank/ back Edema: Generalized- hips/ trunk 2+ BLE Estimated Nutrition Needs: 6385-1190 kcals (30-35 kcals/kg) 78-98 grams protein (1.2-1.5 grams/kg) Assessment: Chart reviewed, events noted. Pt has been transfered to . Deep tissue injury to right upper buttock noted by strand galvanizer. Pt remains on TPN 25% dextrose, currently running at 100 mL/hr + lipids every other day per MD orders. This exceeds the pt's calorie needs by providing 2520 kcals per day, and 3020 kcals every other day when lipids are cycled. This also results in a glucose utilization rate of 6.4 mg/kg/min. RD discussed this with pharmacy. Please see recommendations below. Pt is allowed ice chips 150 mL q 8 hrs. Dx: Inadequate protein-energy intake RT clinical condition, recent bowel surgery AEB pt receiving TPN, NPO status- ACTIVE Intervention: 1. TPN- see recommendations 2. Advance to clear liquid diet once medically feasible [facility] Nutrition Therapy DATE: 03/07/17 Patient: SOL CUEVAS Physician: FERNANDA Address: [address] [facility] Room/Bed: [address], Zip: [place] [address] Admit Date: 02/19/17 Date of : [birth year] Height: 5 10 Weight: 174 79.2 Monitoring, Evaluation and Goals: 1. TPN; provide >80% estimated nutrient needs- MET/ IN PROGRESS 2. Improve labs; glucose, BUN, creat-NOT MET K+-MET 3. GI; promote regular GI function- NOT MET/ CONTINUE 4. Weight; prevent weight loss-UNKNOWN D/T INACCURATE WTS/ IN PROGRESS NEW GOALS: 1. Improve labs; glucose, BUN, creat, GFR, Na+ 2. Weight; obtain accurate weights, prevent weight loss Recommendations: 1. Recommend TPN (25% dextrose) @ 75 mL/hr to provide: 1530 kcals dextrose 1890 kcals 90 grams protein GUR= 4.8 2. If rate of 100 mL/hr preferred for TPN, consider changing to 15% dextrose concentration to prevent excessive carbohydrate administration. TPN 15% dextrose @ 100 mL/hr would provide: 1224 kcals dextrose 1704 kcals 120 grams protein GUR= 3.8 Continue to monitor glucose and electrolyte levels closely 3. Continue to cycle lipids every other day to provide an additional 500 kcals on days cycled. 4. Once medically feasible and deemed appropriate per surgical team, advanced the pt to a clear liquid diet as tolerated and monitor closely for symptoms of intolerance. Status: Pt is at moderate-severe nutritional risk. Respectfully, YESSENIA MORIN RD, LD [facility] Nutrition Therapy DATE: 03/07/17 Patient: SOL CUEVAS Physician: FERNANDA Address: [address] [facility] Room/Bed: [address], Zip: [place] [address] Admit Date: 02/19/17 Date of : [birth year] Height: 5 10 Weight: 174 79.2 Food and Nutritional Services [facility] cc: client file
--- NOTE | ~2017-02-19 | DS ---
Unit #: [id number] #: [id number] Patient: SOL CUEVAS [id number] [place] [address] [id number] I MR#: [id number] NAME: SOL CUEVAS ROOM: 309 Age: 51 Sex: M Admission Date: 02/19/2017 : 1965 Discharge Date: Attending Physician: Magda Gracia M.D. Referring Physician: Al Mack Jr., M.D. Primary Care Physician: Marely Luna A.P.R.N. DISCHARGE SUMMARY DISCHARGE DIAGNOSES 1. Severe sepsis. 2. Perforated bowel, status post exploratory laparotomy showing bowel perforation, possible fistula. 3. Acute blood loss anemia. 4. Gastrointestinal bleed. 5. Hypovolemic shock. 6. Intraabdominal bleed. 7. Acute kidney injury requiring hemodialysis. 8. Urinary tract infection. 9. Hypokalemia. 10. Thrombocytopenia, severe secondary to sepsis. 11. Severe protein malnutrition. 12. Currently, patient is NPO on TPN. 13. Hypernatremia. 14. Diabetes mellitus type 2, uncontrolled. 15. Hypocalcemia. 16. Hypophosphatemia. 17. Hypomagnesemia. 18. History of schizophrenia. 19. Multiple endocrine neoplasia syndrome. 20. Chronic obstructive pulmonary disease. 21. Ongoing smoking. 22. Gastroesophageal reflux disease. 23. History of pulmonary embolus. 24. History of deep venous thrombosis, status post inferior vena cava filter placement. 25. Nephrolithiasis. CONSULTATIONS 1. Dr. Tse. 2. Dr. Mack. 3. Dr. Ceballos. 4. Dr. Arabella Abbott. 5. Dr. Paez. PROCEDURES 1. Patient had exploratory laparotomy on February 19, 2017. 2. Patient had endotracheal intubation on February 27, 2017. 3. Patient had exploratory laparotomy with worsening of several small bleeding area with cauterization. DIAGNOSTIC STUDIES LABORATORY: Glucose 247, sodium 146, potassium 3.5, creatinine 3.3. AST 15, ALT 13, alkaline phosphatase 100, bilirubin total 0.3, albumin 1.7. Unit #: [id number] #: [id number] Patient: SOL CUEVAS Phosphorous 3, magnesium 2. WBC 15.8, hemoglobin 9, platelets 189,000. IMAGING: Ultrasound of the extremities shows positive extensive right upper extremity DVT. CT of the abdomen and pelvis done on March 02, 2017 shows large volume of pneumoperitoneum suggesting interval bowel perforation, large air and fluid collection of the left upper quadrant concerning for intraabdominal abscess, increased size of moderate bilateral pleural effusion. Right kidney staghorn calculi present. CT angio of abdomen and pelvis on February 26 shows no evidence of intraperitoneal hemorrhage. Postoperative changes present. CT abdomen and pelvis on February 19 shows pneumoperitoneum, suspect colon perforation. ALLERGIES None. DISCHARGE MEDICATIONS 1. DuoNeb 3 mL inhalation q.4 p.r.n. shortness of breath. 2. Tylenol 650 q.4 p.r.n. fever. 3. Tylenol 325 q.4 p.r.n. fever. 4. Lovenox 30 mg subcutaneous daily. 5. Zofran 4 mg IV q.4 p.r.n. nausea and vomiting. 6. Desenex apply locally to groin bilaterally. 7. Bumex 2 mg IV b.i.d. 8. NovoLog medium dose sliding scale q.6. 9. Morphine 2 mg IV q.2 p.r.n. severe pain. 10. Protonix 40 daily. 11. Synthroid 75 mcg IV daily. 12. Patient is on TPN. 13. Patient is on Micafungin 100 mg IV daily. HOSPITALIZATION COURSE This is a 51 year old admitted because of abdominal pain and low blood pressure. Severe sepsis with septic shock present on admission. Patient received 2 L of normal saline and monitored in ICU. Currently, blood pressure stable. Severe sepsis from perforated viscous: Patient is seen by Dr. Abbott, critical care. Patient received IV fluids and IV antibiotics. Perforated colon: Patient is seen by [facility]. The patient had exploratory laparotomy and repair but currently patient has colostomy. Suture site looks okay but patient did not have his bowel function normalized. He is still on NPO and TPN. Because of his prolonged hospitalization course, the patient is being transferred to [facility] once bed available. Discussed with Martina, he agrees to be transferred. Discussed with Milena, critical care physician, he agrees to be transferred. Gastrointestinal bleed: The patient had emergency exploration with angiogram. Currently, bleed stopped. Patient received multiple blood transfusions. Anemia secondary to acute blood loss, status post blood transfusion. Unit #: [id number] #: [id number] Patient: SOL CUEVAS Currently, hemoglobin is stable. Multiple electrolyte imbalances: Replace. Currently, patient is on TPN. Renal is following it. Acute kidney injury: Patient received dialysis. Currently, creatinine is elevated. Patient receiving treatment as per nephrology. The patient did receive IV fluids. Urinary tract infection: Patient has been seen by infectious disease. Patient received Zosyn and Flagyl. Patient is seen by infectious disease. Currently, he completed his antibiotic course. Zosyn and Flagyl has been discontinued. Patient will continue with Micafungin as the patient is on TPN. Schizophrenia with hallucinations: Psychiatry service has been consulted, pending at the time of dictation consult. Prolonged hospitalization course: Long-term prognosis guarded. Critically ill patient with prolonged postoperative recovery. Currently, patient is on TPN. Discussed with all the consultants. Discussed with patient at length. They agree for transfer to [facility]. Patient needs to be kept NPO and TPN should be given until his gastric leak resolves, according to Dr. Mack's recommendations. Patient needs to be followed with infectious disease and surgeons at [facility]. Discharge time taken is 40 minutes. Dictated by... Cira Eagle/jason TD: 03/07/2017 16:36 JOB #: [id number] DISCHARGE SUMMARY Page 1 of 1 X Magda Gracia MD X DISCHARGE SUMMARY
--- NOTE | ~2017-02-19 | CO ---
Unit #: [id number] #: [id number] Patient: SOL CRUZ [id number] [facility] [address] [place], [place] [address] [id number] I MR#: [id number] NAME: SOL CRUZ ROOM: 309 Age: 51 Sex: M Admission Date: 02/19/2017 : 1965 Attending Physician: Al Mack Jr., M.D. Primary Care Physician: Marely Luna A.P.R.N. Consultation Date: 03/27/2017 CONSULTATION REPORT REASON FOR CONSULTATION Followup. DISCUSSION Mr. Sol Cruz is a 51-year-old white male, seen in room 319, bed 1 on 03/27/2017 at [facility]. The patient was receiving IV. The patient dressed casually, lying comfortably in bed. The patient's behavior has been bizarre. According to the nursing staff, the patient has been inappropriate towards female staff and nurses making inappropriate sexual comments. The patient guarded and paranoid, reported still hearing voices, seeing things, hearing things. Denied any command hallucination. Denied any suicidal or homicidal ideation. Vital signs; temperature 99.9, heart rate 81, respiratory rate 18, blood pressure 98/56, and oxygen saturation 97%. The patient scheduled to be transferred to [facility] facility as soon as accepted and approved. REVIEW OF SYSTEMS Complete review of systems is unremarkable except as mentioned above. MENTAL STATUS EXAMINATION Vital signs, please see above. General appearance; the patient dressed in hospital attire, lying comfortably in bed. Attention span and concentration, poor. Speech, slow in volume and rate. Oriented in self and place. Mood and affect, labile. Thought process, circumstantial. Thought content, guarded and paranoid. Reported hallucination auditory and visual. Denied any command hallucination. Denied any thoughts of harming self or others. Recent and remote memory, fair to poor. Language, fair. Fund of knowledge, fair. Insight and judgment, fair to slightly impaired. DIAGNOSIS Psychiatric: Schizophrenia, chronic paranoid type, F20.0. ASSESSMENT/PLAN 1. Supportive psychotherapy and psychoeducation provided to the patient. 2. Educated about benefits and side effects of medication and course and prognosis of illness. 3. The patient was also educated about appropriate behavior and about controlling impulses. Recommending at this time to change Haldol to 5 mg t.i.d., Cogentin 1 mg t.i.d., and advised one dose now. We will continue to follow. Please feel free to call if any questions, telephone #[phone]. Unit #: [id number] #: [id number] Patient: SOL CRUZ Dictated by... Cira Mckeon/juan daniel TD: 03/28/2017 02:27 JOB #: [id number] CONSULTATION REPORT Page 1 of 1 X Lamont Sargent MD X CONSULTATION REPORT
--- NOTE | ~2017-02-19 | FU ---
[facility] Nutrition Therapy DATE: 03/24/17 Patient: SOL CUEVAS Physician: FERNANDA Address: [address] [facility] Room/Bed: [address], Zip: [place] [address] Admit Date: 02/19/17 Date of : [birth year] Height: 5 10 Weight: 134 61.2 NUTRITION MONITORING/FOLLOW-UP: Reason: TPN (day 28) follow up Anthropometrics: Ht: 5'10" Adm wt: 65.2 kg BMI: 20.6 Wt 03/24: PT REFUSING BEING WEIGHED SINCE 03/17 PER INFO IN [facility] Labs: BUN 64 Creat 1.6 Ca++ 10.8 Accuchecks 82-180 GFR 49.5 Meds: TPN (15% dextrose) @ 100 mL/hr, 20% 250 mL lipids every other day, MVI with minerals, zofran, protonix, novolog, synthroid I&O's: 150/1650, last BM 03/22 Skin: Stage II pressure ulcer to coccyx (pt refusing treatment per notes in [facility]) Edema: none noted in shift assessment Estimated Nutrition Needs: 2928-3591 kcals (30-35 kcals/kg) 78-98 grams protein (1.2-1.5 grams/kg) Diet: NPO Assessment: Chart reviewed, events noted. Pt is strict NPO and no longer receiving popsicles . Pt is also refusing treatment for wound (per note in shift assessment), also refusing to be weighed. Pt is on day 28 of TPN; however, he pulled out his central line today so he is currently not receiving TPN. Per pharmacy orders, TPN will continue at previous mix and rate (15% dextrose @ 100 mL/hr + lipids every other day. RN reports that the pt requests food and is combative when food is denied. Dx: Inadequate protein-energy intake RT clinical condition, bowel surgery AEB NPO status, pt receiving TPN- ACTIVE Intervention: 1. NPO 2. TPN Monitoring, Evaluation and Goals: 1. TPN; provide >80% estimated needs- NOT CURRENTLY BEING MET/ IN PROGRESS 2. GI; promote regular GI function- IN PROGRESS 3. Weight; prevent weight loss/ monitor- NOT MET/ PT CONTINUES TO REFUSE WEIGHTS [facility] Nutrition Therapy DATE: 03/24/17 Patient: SOL CUEVAS Physician: FERNANDA Address: [address] [place] [address] Room/Bed: [address] [place] [address], Zip: [place] [address] Admit Date: 02/19/17 Date of : [birth year] Height: 5 10 Weight: 134 61.2 4. Labs; monitor/ improve: electrolytes, glucose, BUN, creat (IMPROVED) 5. PO diet advancement- NOT MET (NOW STRICT NPO) CONTINUE TO MONITOR ABOVE GOALS Recommendations: 1. Once central line is replaced, continue current TPN per pharmacy orders. 2. Continue to monitor electrolytes and glucose levels closely. 3. Once medically feasible and deemed appropriate per surgical team, advance the pt to a clear liquid diet. RD will continue to follow. Status: Pt is at moderate nutritional risk. Respectfully, YESSENIA MORIN RD, LD Food and Nutritional Services [facility] cc: client file
--- NOTE | ~2017-02-19 | CR72 ---
[facility] A Service of [facility] & [facility] RADIOLOGY TEXT RESULTS PATIENT: SOL CUEVAS LOCATION: [address] : [birth year] UNIT #: [id number] AGE: [address]: Magda Gracia MD SEX: M ORDER DR: [id number] [facility] [address] [facility]. [place], [place] [address] [id number] I MR#: [id number] Acc #: [id number] NAME: SOL CUEVAS : 1965 SEX: M STUDY DATE/TIME: 02/28/2017 5:57 UNIT: [facility] ROOM: [facility] STUDY DESCRIPTION: CR Chest Single View Portable Attending Physician: Magda Gracia M.D. Referring Physician: Al Mack Jr., M.D. Ordering Physician: Asher Abbott M.D. Primary Care Physician: Marely Luna A.P.R.N. MEDICAL IMAGING REPORT This report is preliminary unless electronic signature is present EXAM Portable chest, 1 view. DATE OF STUDY 02/28/2017 COMPARISON 02/27/2017 CLINICAL HISTORY 9-day history of shortness of air requiring intubation. FINDINGS ET tube present, tip 3-4 cm above niharika. Left IJ dialysis catheter and right IJ central line and right arm PICC line and NG tube remain. Low lung volumes without consolidation or effusion or pneumothorax. No discrete infiltrate. Dictated by... Azam Lee M.D. THIS IS AN ELECTRONICALLY VERIFIED REPORT Azam Lee M.D. at 02/28/2017 3:57 PM TEV/yohannes TD: 02/28/2017 13:43 JOB #: [id number] MEDICAL IMAGING REPORT Page 1 of 1 COPY
--- NOTE | ~2017-02-19 | CO ---
Unit #: [id number] #: [id number] Patient: SOL CRUZ [id number] [facility] [address] [facility] [place], [place] [address] [id number] I MR#: [id number] NAME: SOL CRUZ ROOM: 309 Age: 51 Sex: M Admission Date: 02/19/2017 : 1965 Attending Physician: Al Mack Jr., M.D. Primary Care Physician: Marely Luna A.P.R.N. Consultation Date: 03/08/2017 CONSULTATION REPORT REASON FOR CONSULTATION Followup. DISCUSSION Mr. Sol Cruz is a 51-year-old male, seen in room 309, bed [address] [facility]. The patient was lying comfortably in bed. The patient reports that he is still n.p.o., but he can take ice chips and receiving IV fluids, and will be going to rehab. The patient has a history of schizophrenia, started on haloperidol yesterday. The patient denied any side effects from medication. The patient is on multiple medications at this time. Pleasant, cooperative, answered questions in a monotone voice. No agitation. Denied any thoughts of harming self or others, but seems to be guarded and paranoid. Attending to internal stimuli. The patient's vital signs are temperature 98.8, pulse 94, respiratory rate 16, blood pressure 141/71, and oxygen saturation 98%. REVIEW OF SYSTEMS Complete review of systems unremarkable. MENTAL STATUS EXAMINATION General appearance, the patient dressed casually. Attention span and concentration, poor. Speech, disorganized. Oriented in place and person. Mood and affect, labile. Thought process, circumstantial. Thought content, guarded and paranoid, but denied any thoughts of harming self or others. Recent and remote memory, fair to slightly impaired. Language, fair. Fund of knowledge, fair. Insight and judgment, fair to slightly impaired. DIAGNOSIS Psychiatric: Schizophrenia, chronic paranoid type, F20.0. ASSESSMENT/PLAN 1. Supportive psychotherapy and psychoeducation provided to the patient. 2. Educated about benefits and side effects of medication and course and prognosis of illness. 3. Advised to continue with current combination of medication and make further adjustment of medication if needed. Please feel free to call if any questions, telephone #[phone]. Dictated by... Lamont Sargent M.D. [facility]/juan daniel Unit #: [id number] #: [id number] Patient: SOL CRUZ TD: 03/08/2017 22:58 JOB #: [id number] CONSULTATION REPORT Page 1 of 1 X Lamont Sargent MD X CONSULTATION REPORT
--- NOTE | ~2017-02-19 | CR265 ---
[facility] A Service of [facility] & [facility] RADIOLOGY TEXT RESULTS PATIENT: SOL CUEVAS LOCATION: C3A 309-01 : [birth year] UNIT #: [id number] AGE: [address]: Al Mack MD SEX: M ORDER DR: [id number] [facility] [address] [facility]. [place], [place] [address] [id number] I MR#: [id number] Acc #: [id number] NAME: SOL CUEVAS : 1965 SEX: M STUDY DATE/TIME: 03/15/2017 8:21 UNIT: C3A U ROOM: 309 STUDY DESCRIPTION: CR Upper GI Series Wo KUB Attending Physician: Al Mack Jr., M.D. Referring Physician: Al Mack Jr., M.D. Ordering Physician: Ferny Beard M.D. Primary Care Physician: Marely Luna A.P.R.N. MEDICAL IMAGING REPORT This report is preliminary unless electronic signature is present EXAM Upper GI series HISTORY Gastric perforation with left upper quadrant drain. TECHNIQUE The patient was given Gastrografin orally. The patient was unable to stand upright and the table was tilted 45 degrees up. A total of 6 overhead spot films were obtained. FINDINGS Gastrografin passes across the gastroesophageal junction without difficulty. The Gastrografin pours through a large defect in the lateral gastric wall at the cardia into the left upper quadrant fluid collection around the pigtail drainage catheter. There is preferential spill of Gastrografin through this defect and very little Gastrografin passes into the distal stomach. Total fluoroscopy time 1.1 minutes. IMPRESSION Large defect in the lateral gastric wall on the left side communicating with the left upper quadrant fluid collection. Ingested Gastrografin preferentially spills through this large defect into the left upper quadrant collection. STAT * RESULT Dictated by... Gian Scott M.D. THIS IS AN ELECTRONICALLY VERIFIED REPORT [facility] A Service of [facility] & [facility] RADIOLOGY TEXT RESULTS PATIENT: SOL CUEVAS LOCATION: A 309-01 : [birth year] UNIT #: [id number] AGE: [address]: Al Mack MD SEX: M ORDER DR: Gian Scott M.D. at 03/16/2017 6:47 AM JIM/federico TD: 03/16/2017 06:29 JOB #: [id number] MEDICAL IMAGING REPORT Page 1 of 1 COPY
--- NOTE | ~2017-02-19 | CO ---
Unit #: [id number] #: [id number] Patient: SOL CUEVAS [id number] [address] [place], [place] [address] [id number] MR#: [id number] NAME: SOL CUEVAS [facility]OM: [facility] Age: 51 Sex: M Admission Date: 02/19/2017 : 1965 Attending Physician: Magda Gracia M.D. Primary Care Physician: Marely Luna A.P.R.N. Consultation Date: 03/03/2017 CONSULTATION REPORT REASON FOR CONSULTATION Abdominal sepsis. HISTORY OF PRESENT ILLNESS This is a 51-year-old male who is somewhat of a poor historian and much of the history has been reviewed with the ICU staff and the chart. 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 The patient has a significant past medical history including a pancreatectomy it appears this year. The patient was brought to the emergency room after he was developing some abdominal pain and some coffee-ground emesis at home. Workup revealed that he had a likely abdominal/bowel perforation and he went to surgery. The patient developed some acute renal insufficiency and he has been on some intermittent dialysis followed by the Renal team. The patient went back to the OR secondary to bleeding, as he was developing a shock state. Postsurgery, the patient eventually moved out of the ICU but was found to have a mass on the left side of his abdomen yesterday and he was sent for a CT scan. The CT scan was consistent with fluid collection and pneumoperitoneum and IR placed a drain. It is noted per IR that the patient's fluid collection communicated with the stomach consistent with a gastric leak. The patient was sent back to the ICU for further observation as he was noted to continue to have abdominal pain and leukocytosis and Infectious Disease was asked to evaluate for antibiotic management and abdominal sepsis. 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 PAST SURGICAL HISTORY Also includes Daljit fundoplication, splenectomy, thyroidectomy, kidney stone, cholecystectomy, EGD, IVC filter. SOCIAL HISTORY The patient reports that he lives with his mother. He has positive tobacco abuse but denies any alcohol or IV drug use. ALLERGIES No known allergies. MEDICATIONS The patient is currently on: 1. Zosyn. Unit #: [id number] #: [id number] Patient: SOL CUEVAS 2. Flagyl. 3. Diflucan. It appears that at some time during this hospitalization patient has also been on Tygacil and meropenem. The patient is not on any pressor support. For other medications, please refer to patient's MAR. REVIEW OF SYSTEMS Difficult to obtain as the patient reports that he wants to just be left alone. He does report that he does have some abdominal pain. PHYSICAL EXAMINATION GENERAL APPEARANCE: This is a no apparent distress thin male. VITAL SIGNS: Temperature 97.8 with no recent fever spike. Pulse 99. Blood pressure 106/73. Respiratory rate 18. HEENT: His pupils are equal. NECK: Supple. CARDIOVASCULAR: S1, S2. Regular rate and rhythm. PULMONARY: Clear to auscultation, diminished in the bases. No wheezes or rhonchi noted. ABDOMEN: Midline incision with barbara intact without any evidence of drainage or dehiscence. He has a colostomy and also a drain in the left upper quadrant with serous fluid and ecchymosis on the left upper quadrant. His stomach appears nondistended. EXTREMITIES: Positive edema in the lower extremities. Positive edema in the right upper extremity with the presence of a PICC line near the left and right IJ line/Shiley. DIAGNOSTIC STUDIES LABORATORY: BUN 57, creatinine 3.9, sodium 143, potassium 3.3, chloride 109, CO2 25, bilirubin 0.6, AST 14, ALT 17, alkaline phosphatase 63. Lactic acid is 2.3, which is improved from his high of 19.1 on February 25. His procalcitonin is 3.96 on February 25. INR 1.1. WBC count 26.9 which is improved from 39.5, hemoglobin 9.5,hematocrit 29.3, platelets 103, which has been trending back up. Tox screen was negative in 2016. MICROBIOLOGY DATA: Abdominal fluid shows no organisms. 02/25 blood cultures are currently negative to date. 02/20 urine for eosinophils is negative. 02/19 abdominal cultures are negative to date. 02/19 blood culture is negative. Urine culture is negative. IMAGING: CT scan of the abdomen and pelvis-please see full report for complete details. In summary, there is development of large volume pneumoperitoneum and suggestive of interval bowel perforation, large area and fluid collection in the left upper quadrant concerning for abscess up to 16 cm. Increased size of moderate bilateral pleural effusions. Multiple calculi in the left renal collecting system without hydronephrosis. Irregularity of the pancreas. IMPRESSION This is a 51-year-old male who, since admission, has had exploratory lap secondary to bowel perforation, who developed some acute kidney injury and went back to the OR due to developing a shock state and was found to have a significant amount of blood but no active bleeding found. The patient did well but moved back to the ICU after a CT scan showed pneumoperitoneum yesterday and abscess/fluid collection. At this time, we will treat his abdominal sepsis with gastric leak after exploratory lap x2. The patient is not on any pressor support at this time and his WBC count has been Unit #: [id number] #: [id number] Patient: SOL CUEVAS trending down and he has had no recent positive cultures. However, the patient has had some hypothermia since admission to the ICU, again, this stay and would like to check blood cultures x2 30 minutes apart. We will repeat lactic acid and CR and procalcitonin level. We will increase antifungal coverage to include Mycamine and stop the Diflucan. We will give vancomycin times one as the patient has multiple central IV access and may have a bacteremia from lines. We will continue Zosyn and Flagyl at this time as patient recently was on meropenem and Tygacil but will continue to follow cultures closely and we will discuss with Dr. Lucas Paez as well as the patient require further OR, however, he has recently undergone multiple procedures. This case will be discussed with Dr. Lucas Paez in detail today who will evaluate this patient. Thank you for allowing us to participate in the care of this patient and further recommendations to follow pending patient's clinical course. Dictated by... Clarisse Mayen A.P.R.N. for Cira Daniel/ann TD: 03/03/2017 11:03 JOB #: [id number] CONSULTATION REPORT Page 1 of 1 X X CONSULTATION REPORT
--- NOTE | ~2017-02-19 | OR ---
Unit #: [id number] #: [id number] Patient: SOL CUEVAS [id number] [address] [place], [place] [address] [id number] I MR#: [id number] NAME: SOL CUEVAS ROOM: [facility] Date of Procedure: 02/27/2017 Admission Date: 02/19/2017 Surgeon: Al Mack Jr., M.D. : 1965 Attending Physician: Magda Gracia M.D. Referring Physician: Al Mack Jr., M.D. Primary Care Physician: Marely Luna A.P.R.N. OPERATIVE REPORT INDICATIONS FOR PROCEDURE The patient is a 51-year-old white male, who recently presented with free air and an acute abdomen. He was noted to have evidence of perforated stomach, colon, and small bowel in the left upper quadrant of the abdomen. Colostomy was performed along with the colon resection and repair of the small bowel and stomach and the patient was doing well up until the last day or two when he has developed some progressive problems with evidence of bleeding. He had significant bleeding through his Mat-Denney drain from yesterday to today and became very shocky and required vasopressors with extra blood. His hemoglobin went down below 5 g and he has been transfused up quickly this morning. He is brought to the operating room at this time for emergency surgery to determine the source of his bleeding. Informed consent has been obtained. PREOPERATIVE DIAGNOSIS Intraabdominal bleeding. POSTOPERATIVE DIAGNOSES Intraabdominal bleeding noting bleeding in the left upper quadrant for several small areas, but no major arteries or other bleeding was noted. There was a large amount of blood within the abdomen probably close to 3000 mL with clot. ANESTHESIA General with endotracheal intubation. PROCEDURES PERFORMED Exploratory laparotomy, over-sewing of several small bleeding areas with cauterization with the Bovie cautery, extensive intraabdominal lavage and treatment of the left subphrenic area with FloSeal. Also, the colostomy had to be taken down in order to get access to the left upper quadrant and it was redone at the end of the case. DESCRIPTION OF PROCEDURE The patient was positioned in supine position and after being anesthetized and intubated, he was prepped and draped in routine fashion for exploration through his midline incision. Cordelia were removed before the prep and sutures on the fascia were then removed. Intra-abdominal exploration was carried out. The patient had no intraabdominal adhesions at all after 7 to 8 days postop. All four quadrants were packed in the abdomen after significant amount of blood was removed and it was obvious that there was some form of bleeding from the left upper quadrant. In Unit #: [id number] #: [id number] Patient: FAITHSOL order to visualize this, the colon at the level of the abdominal wall was then stapled and transected with a MAGNUS stapling device. The drain was then cut off and removed and left upper quadrant explored with irrigation. There were several small areas of oozing, but no evidence of any significant arterial bleeding. These areas were oversewn with interrupted 2-0 silk sutures and 0 silk sutures where appropriate. After hemostasis was noted, the small areas of oozing were controlled with the Bovie cautery and FloSeal was injected in the left upper quadrant allowed to stay up in this area packed. There was no evidence of any further bleeding in this quadrant. The other three quadrants were checked, there was no evidence of any bleeding from them. The abdomen was copiously irrigated with saline solution. The mesentery on the colon was freed up approximately 1 cm by clamping the mesentery, dividing it and ligating with 2-0 silk sutures. After total hemostasis was noted and all packs were removed, the colostomy externally was then removed and the colon was then brought back up through the fascia and sutured to the fascia with interrupted 3-0 Vicryl sutures. The abdomen was again irrigated with saline solution after total hemostasis was noted. The midline was closed with interrupted #1 Vicryl sutures using a single fascial layer closure. Subcutaneous tissue was irrigated and the skin loosely approximated with stainless-steel skin clips and skin stapling device. Sterile dressing was applied externally. The colon staple line was then excised and the colostomy matured and the colostomy bag placed. Estimated blood loss for the entire procedure less than 200 mL. The patient probably had 3 L of blood within the abdomen. The patient received less than 3000 mL crystalloid solution during the procedure. He did receive some blood during the procedure and fresh frozen plasma. Drains were none. Sponge count was correct x3. There were no complications. The patient was taken back to intensive care unit with stable vital signs, but in guarded condition. Dictated by... Al Mack Jr., M.D. JMB/juan daniel TD: 02/27/2017 11:48 JOB #: [id number] CC: Marely Luna A.P.R.N. OPERATIVE REPORT Page 1 of 1 X Al Mack MD X PROCEDURE OPERATIVE NOTE
--- NOTE | ~2017-02-19 | XA166 ---
[facility] A Service of [facility] & [facility] RADIOLOGY TEXT RESULTS PATIENT: SOL CUEVAS LOCATION: CICCU2 CICCU2-11 : 67 UNIT #: [id number] AGE: [address]: Magda Gracia MD SEX: M ORDER DR: [id number] [facility]. [place], [place] [address] [id number] I MR#: [id number] Acc #: [id number] NAME: SOL CUEVAS : 1965 SEX: M STUDY DATE/TIME: 02/23/2017 9:34 UNIT: C3A PCU ROOM: [facility] STUDY DESCRIPTION: XA PICC Line Placement WO Port Attending Physician: Magda Gracia M.D. Referring Physician: Al Mack Jr., M.D. Ordering Physician: Magda Gracia M.D. Primary Care Physician: Marely Luna A.P.R.N. MEDICAL IMAGING REPORT This report is preliminary unless electronic signature is present EXAM Right-sided PICC line placement INDICATION Need for IV access in a patient with pneumoperitoneum and colon perforation. PRE-PROCEDURE The procedure was explained to the patient and/or patient patient services representative including risks, benefits, potential complications and potential for alternative forms of treatment. Informed consent was obtained, and prior to initiating the procedure a formal timeout procedure was performed. PROCEDURE Using full standard sterile barrier technique, including caps, gowns, gloves, masks, as well as sterile skin preparation and standard sterile draping, the right arm was prepped and draped in the usual fashion, and real-time sterile ultrasound guidance was used to localize an arm vein and to confirm vessel patency. A hard copy ultrasound image was recorded. After local anesthesia with 1% Xylocaine, the vein was punctured using real-time sterile ultrasound guidance, and an 0.018 guidewire was advanced into the superior vena cava, using fluoroscopic guidance. A 5-Ghanaian dual-lumen PICC was then measured and deployed with the tip positioned in the superior vena cava. The position of the line was documented with a radiographic image. The line was secured in place with an adhesive dressing and an antibiotic patch was applied. Total fluoro time was 0.2 minutes. AK 1 mGy. IMPRESSION Successful placement of a 5-Ghanaian dual lumen PowerPICC via the right arm under ultrasound and fluoroscopic guidance. The tip of the PICC is in good position in the superior vena cava. [facility] A Service of [facility] RADIOLOGY TEXT RESULTS PATIENT: SOL CUEVAS [facility] UNIT #: [id number] AGE: [address]: Magda Gracia MD SEX: M ORDER DR: Dictated by... Cindy Hoover M.D. THIS IS AN ELECTRONICALLY VERIFIED REPORT Cindy Hoover M.D. at 02/27/2017 3:28 PM AFF/aa TD: 02/24/2017 09:07 JOB #: [id number] MEDICAL IMAGING REPORT Page 1 of 1 COPY
--- NOTE | ~2017-02-19 | XA259 ---
[facility] A Service of [facility] & [facility] RADIOLOGY TEXT RESULTS PATIENT: SOL CRUZ LOCATION: C3A 309-01 : 67 UNIT #: [id number] AGE: [address]: Al Mack MD SEX: M ORDER DR: [id number] [id number] [facility]. [place], [place] [address] [id number] I MR#: [id number] Acc #: [id number] NAME: SOL CRUZ : 1965 SEX: M STUDY DATE/TIME: 03/10/2017 1725 UNIT: C3A PCU ROOM: 309 STUDY DESCRIPTION: ANDERSON Thomas Cath Mi/Retro w/im Attending Physician: Al Mack Jr., M.D. Referring Physician: Al Mack Jr., M.D. Ordering Physician: Al Mack Jr., M.D. Primary Care Physician: Marely Luna A.P.R.N. MEDICAL IMAGING REPORT This report is preliminary unless electronic signature is present EXAM Fluoroscopically guided drain exchange. HISTORY Mr. Cruz is a 51-year-old man who underwent placement of a pigtail drainage catheter within the left upper quadrant on March 02, 2017. He did not have any drainage from the catheter over the past 24 hours and check of the catheter was requested. Patient underwent a CT scan which showed a persistent large fluid collection within the left upper quadrant despite the presence of the drain. PROCEDURE The risks, benefits, and alternatives to the procedure were explained to the patient and signed, informed consent was obtained. patient was placed supine on the angiographic table and was prepped and draped in the usual sterile fashion. Time-out was performed as per protocol. Skin and subcutaneous tissues around the catheter were anesthetized with buffered lidocaine. An Amplatz wire was advanced through the catheter which was removed over the wire and a new pigtail drainage catheter was advanced over the wire and positioned within the collection. Contrast was injected which confirmed location within the collection. Of note, the patient's CT from earlier today there did appear to be a defect within the wall of the greater curvature of the stomach. I do not see any obvious communication with the stomach on today's examination, however. Catheter was secured using a Silk suture and was placed to gravity drainage. IMPRESSION Successful fluoroscopically guided drainage change as noted above. Fluoroscopy was used during the procedure and permanent images were saved. Dictated by... [facility] A Service of [facility] RADIOLOGY TEXT RESULTS PATIENT: SOL CRUZ LOCATION: A 309- : [birth year] UNIT #: [id number] AGE: [address]: Al Mack MD SEX: M ORDER DR: Cindy Hoover M.D. THIS IS AN ELECTRONICALLY VERIFIED REPORT Cindy Hoover M.D. at 03/16/2017 8:12 AM AVINASH/yohannes TD: 03/13/2017 16:26 JOB #: [id number] MEDICAL IMAGING REPORT Page 1 of 1 COPY
--- NOTE | ~2017-02-19 | CR264 ---
[facility] A Service of [facility] & [facility] RADIOLOGY TEXT RESULTS PATIENT: SOL CUEVAS LOCATION: [facility] 314-01 : 67 UNIT #: [id number] AGE: [address]: Magda Gracia MD SEX: M ORDER DR: [id number] [id number] [facility]. [place], [place] [address] [id number] I MR#: [id number] Acc #: [id number] NAME: SOL CUEVAS : 1965 SEX: M STUDY DATE/TIME: 02/22/2017 8:26 [facility] STUDY DESCRIPTION: CR Upper GI Series W KUB Attending Physician: Magda Gracia M.D. Referring Physician: Al Mack Jr., M.D. Ordering Physician: Justin Luna M.D. Primary Care Physician: Marely Luna A.P.R.N. MEDICAL IMAGING REPORT This report is preliminary unless electronic signature is present EXAM Gastrografin upper GI series HISTORY Evaluate for leak. Recent surgery for perforated bowel. FINDINGS Gastrografin was administered via the patient's NG tube. The patient was imaged in multiple obliquities. No leak could be demonstrated. There was deformity of the greater curvature of the stomach. Total fluoroscopy time for the procedure was 2.4 minutes. Total contrast 128 mL of Gastroview. A total of 13 images were submitted. SUMMARY No demonstrable leak. Consider a follow-up study in a few days with barium to exclude a small leak. Dictated by... Justin Ruano M.D. THIS IS AN ELECTRONICALLY VERIFIED REPORT Justin Ruano M.D. at 02/23/2017 7:14 AM DARWIN/shana TD: 02/22/2017 13:56 JOB #: [id number] MEDICAL IMAGING REPORT Page 1 of 1 COPY
--- NOTE | ~2017-02-19 | CR72 ---
[facility] A Service of [facility] RADIOLOGY TEXT RESULTS PATIENT: SOL CUEVAS LOCATION: CICCU3 CICCU3-13 : 67 UNIT #: [id number] AGE: [address]: Lashay Bowles MD SEX: M ORDER DR: [id number] [facility] [address] [facility]. [place], [place] [address] [id number] I MR#: [id number] Acc #: [id number] NAME: SOL CUEVAS : 1965 SEX: M STUDY DATE/TIME: 02/19/2017 13:23 UNIT: CPACUOF ROOM: STUDY DESCRIPTION: CR Chest Single View Portable Attending Physician: Al Mack Jr., M.D. Referring Physician: Al Mack Jr., M.D. Ordering Physician: Ian Bell M.D. Primary Care Physician: Marely Luna A.P.R.N. MEDICAL IMAGING REPORT This report is preliminary unless electronic signature is present EXAM Single view portable chest, 02/19/17 HISTORY Central line placement, mild congestion, began today. TECHNIQUE AP radiograph of the chest is presented. COMPARISON STUDIES 07/07/16 FINDINGS Right internal jugular central venous catheter terminates in the superior vena cava. No acute bony abnormality. The heart and mediastinum are normal in size and contour. The lungs are well inflated. Pulmonary vasculature less prominent than on the prior examination suggesting a decrease in vascular congestion. There is no compelling evidence of significant vascular congestion at this time, and there is no indication of luther pulmonary edema. No pneumonia, pleural effusion or pneumothorax. No suspicious nodule. Dictated by... Justin Casillas M.D. THIS IS AN ELECTRONICALLY VERIFIED REPORT Justin Casillas M.D. at 02/20/2017 8:13 AM Monique TD: 02/19/2017 21:08 [facility] A Service of [facility] RADIOLOGY TEXT RESULTS PATIENT: SOL CUEVAS LOCATION: [facility] CICCU3-13 : 67 UNIT #: [id number] AGE: [address]: Lashay Bowles MD SEX: M ORDER DR: JOB #: [id number] MEDICAL IMAGING REPORT Page 1 of 1 COPY
--- NOTE | ~2017-02-19 | EKG ---
PATIENT: SOL CUEVAS UNIT #: [id number] Ventricular Rate: 65 BPM Atrial Rate: 65 BPM P-R Interval: 128 ms QRS Duration: 90 ms Q-T Interval: 436 ms QTC Calculation(Bezet): 453 ms P Douglas: 88 degrees Calculated R Douglas: 88 degrees Calculated T Douglas: 42 degrees Diagnosis Line: Normal sinus rhythm Diagnosis Line: Normal ECG Diagnosis Line: When compared with ECG of 07-JUL-2016 16:26, Diagnosis Line: Nonspecific T wave abnormality now evident in Diagnosis Line: Lateral leads Diagnosis Line: QT has lengthened Diagnosis Line: Confirmed by JESUS JOSHI MD ([id number]) on 02/19/2017 Diagnosis Line: 4:52:40 PM INTERPRETING MD: ADI GOODE
--- NOTE | ~2017-02-19 | FU ---
[facility] Nutrition Therapy DATE: 03/01/17 Patient: SOL CUEVAS Physician: FERNANDA Address: [address] [facility] Room/Bed: [address], Zip: [place] [address] Admit Date: 02/19/17 Date of : [birth year] Height: 5 10 Weight: 214 97.5 NUTRITION MONITORING/FOLLOW-UP: Reason: TPN follow up Anthropometrics: ht: 5'10" wt: 65.2 kg (standing scale 02/23) BMI: 21 - 97 kg (bed scale 03/01) Labs: Glu 115, K+ 3.2, BUN 42, Creat 3.3, Alb 1.8, GFR 20.6 Meds: TPN, Protonix, novolog, NaCl, synthroid, morphine sulfate I&O's: 3242/1105. Last BM 02/28 Skin: Puncture to procedure site mid abdomen edema: none noted Estimated Nutrition Needs: 1859-5010 kcals (30-35 kcal/kg) 78-98 g protein (1.2-1.5 g/kg) Using standing scale weight 65.2 kg Diet: clear liquid + TPN Assessment: Chart reviewed, events noted. Pt has been extubated since last follow up. His diet has been advanced to clear liquid. Per RN, he has had small amounts of liquids. The pt is still receiving TPN (dextrose 25%) at 75 mL/hr at this time w/no lipids. RD environmental health and safety intern spoke to pt at bedside and encouraged ensure clear, but pt refused. Pt says he will "let us know" when he would like something to drink. RD will continue to follow. Dx: Inadequate protein-energy intake r/t clinical condition, recent bowel surgery AEB NPO status x 5 days, NG to LWS -In progress New DX: Inadequate protein-energy intake r/t clinical condition, recent bowel surgery AEB pt receiving TPN. Intervention: 1. TPN 2. Clear liquid diet Monitoring, Evaluation and Goals: 1. TPN; provide >80% estimated nutrient needs -In progress 2. Oral intake; advance diet once medically feasible -MET. 2.A. Consume/tolerate >50% of meals-In progress 3. GI; promote regular GI function -In progress, BM 02/28 [facility] Nutrition Therapy DATE: 03/01/17 Patient: SOL CUEVAS Physician: FERNANDA Address: [address] [facility] Room/Bed: [address], Zip: [place] [address] Admit Date: 02/19/17 Date of : [birth year] Height: 5 10 Weight: 214 97.5 4. Weight; prevent weight loss, promote gradual weight gain towards IBW -In progress 5. Labs; glucose (improved), electrolytes (no change) Recommendations: 1. Continue TPN (dextrose 25%) @ 75 mL/hr. This provides 1530 non-protein kcals, 1890 total kcals, 90 g protein. GUR = 4.7 Recommend to continue cycling lipids 20% 250 ml lipids q other day 2. Please order ensure clear BID if pt requests, for additional protein and kcal. 3. Continue to monitor electrolytes and glucose closely. 4. Once medically feasible and pt tolerating clear liquids, advance to a low fiber diet + 6 small meals as tolerated. RD will f/u per protocol as pt is at mod/severe nutritional risk. Respectfully, MATT GOLDBERG, financial internship Tj Guillen MS, RD, LD Food and Nutritional Services [facility] cc: client file
--- NOTE | ~2017-02-19 | CR72 ---
[facility] A Service of [facility] & [facility] RADIOLOGY TEXT RESULTS PATIENT: SOL CUEVAS [address]ATION: [address] : [birth year] UNIT #: [id number] AGE: [address]: Magda Gracia MD SEX: M ORDER DR: [id number] [facility] [address] [facility]. [place], [place] [address] [id number] I MR#: [id number] Acc #: [id number] NAME: SOL CUEVAS : 1965 SEX: M STUDY DATE/TIME: 02/27/2017 05:10 UNIT: [facility] ROOM: [facility] STUDY DESCRIPTION: CR Chest Single View Portable Attending Physician: Magda Gracia M.D. Referring Physician: Al Mack Jr., M.D. Ordering Physician: Kedar Tse M.D. Primary Care Physician: Marely Luna A.P.R.N. MEDICAL IMAGING REPORT This report is preliminary unless electronic signature is present EXAM Portable chest 02/27/17 at 05:10. INDICATIONS Shortness of air, hypotension, coffee-ground emesis. COMPARISON AP portable chest is compared with 02/20/2017. FINDINGS The left side dual lumen catheter tip at the cavoatrial junction. Right IJ line tip and right arm PICC line tip in the SVC. No pneumothorax is seen. There is some very mild atelectasis in the bases. NG tube tip is in the stomach. No visible pneumothorax. Dictated by... Gian Packer Jr., M.D. THIS IS AN ELECTRONICALLY VERIFIED REPORT Gian Packer Jr., M.D. at 02/27/2017 9:16 PM RLK/mehnaz TD: 02/27/2017 11:05 JOB #: [id number] MEDICAL IMAGING REPORT Page 1 of 1 COPY
--- NOTE | ~2017-02-19 | CO ---
Unit #: [id number] #: [id number] Patient: SOL CRUZ [id number] [address] [address] [id number] I MR#: [id number] NAME: SOL CRUZ ROOM: 309 Age: 51 Sex: M Admission Date: 02/19/2017 : 1965 Attending Physician: Magda Gracia M.D. Primary Care Physician: Marely Luna A.P.R.N. Consultation Date: 03/07/2017 CONSULTATION REPORT JOB NOTE: VERIFY WORK TYPE. REASON FOR CONSULTATION History of schizophrenia, noncompliant with medication. HISTORY OF PRESENT ILLNESS Mr. Sol Cruz is a 51-year-old white male, seen in room 309, bed 1 on 03/07/2017. The patient was receiving IV fluids, currently n.p.o., advised ice chips only. The patient did not show any aggression, but bizarre behavior, disorganized thought process, but able to answer questions. Alert and oriented in place and person. The patient did not show any agitation or aggression; however, required p.r.n. earlier. The patient's vital signs; temperature 98.1, pulse 81, respiratory rate 16, blood pressure 140/79, oxygen saturation 99%. The patient is redirectable and cooperative, but guarded and paranoid. Seems to be attending to internal stimuli. The patient will be going to [facility] soon. PAST PSYCHIATRIC HISTORY Remarkable for history of schizophrenia, details unknown at this time. MEDICAL HISTORY The patient's medical history is remarkable for history of sepsis, perforated bowel, acute blood loss anemia, gastrointestinal bleed, hypovolemic shock, intra-abdominal bleed, UTI, acute kidney injury requiring hemodialysis, hypokalemia, thrombocytopenia, severe protein malnutrition, diabetes mellitus type 2, hypocalcemia, hypophosphatemia, hypomagnesemia, history of pulmonary embolus, deep venous thrombosis, and nephrolithiasis. MEDICATIONS HISTORY The patient is on DuoNeb, Lovenox, Zofran, Bumex, NovoLog, morphine, Protonix, and Synthroid. FAMILY AND SOCIAL HISTORY The patient has a good support system. No history of abuse. No history of any substance abuse. REVIEW OF SYSTEMS Complete review of systems is unremarkable. MENTAL STATUS EXAMINATION Vital signs; temperature 98.1, pulse 81, respiratory rate 16, blood pressure 140/79, and oxygen saturation 99%. General appearance; the patient dressed casually in hospital attire, lying comfortably in bed, Unit #: [id number] #: [id number] Patient: SOL CRUZ seemed somewhat restless, anxious, guarded. Attention span and concentration, poor. Speech, circumstantial. Oriented in place and person. Mood and affect, labile. Thought process, circumstantial. Thought content, guarded and paranoid, but denied any suicidal or homicidal ideation. Recent and remote memory, fair to slightly impaired. Language, fair. Fund of knowledge, fair to slightly impaired. Insight and judgment, fair to slightly impaired. DIAGNOSES Psychiatric: Schizophrenia, chronic paranoid type. Secondary diagnosis: Deferred. Medical diagnosis: Please refer to H and P. Stressors: Psychosocial stressors. ASSESSMENT/PLAN 1. Supportive psychotherapy and psychoeducation provided to the patient. 2. Educated about benefits and side effects of medication and course and prognosis of illness. 3. Advised Haldol 5 mg at bedtime as the patient was on this medication earlier. If needed, consider further adjustment of medication. Please feel free to call if any questions, telephone #[phone]. Dictated by... Lamont Sargent M.D. TOMMY/juan daniel TD: 03/07/2017 23:08 JOB #: [id number] CONSULTATION REPORT Page 1 of 1 X Lamont Sargent MD X CONSULTATION REPORT
--- NOTE | ~2017-02-19 | CT4 ---
[facility] A Service of [facility] & [facility] RADIOLOGY TEXT RESULTS PATIENT: SOL CUEVAS LOCATION: C3A 323-01 : 67 UNIT #: [id number] AGE: [address]: Magda Gracia MD SEX: M ORDER DR: [id number] [facility] [address] [place], [place] [address] [id number] MR#: [id number] Acc #: [id number] NAME: SOL CUEVAS : 1965 SEX: M STUDY DATE/TIME: 03/02/2017 13:52 UNIT: C3A PCU ROOM: 323 STUDY DESCRIPTION: CT Abd and Pelv Wo Cont Attending Physician: Magda Gracia M.D. Referring Physician: Al Mack Jr., M.D. Ordering Physician: Valentina Abbott M.D. Primary Care Physician: Marely Luna A.P.R.N. MEDICAL IMAGING REPORT This report is preliminary unless electronic signature is present EXAM CT abdomen and pelvis INDICATIONS Gastric perforation. Colonic and small bowel perforation. Anemia. Abdominal hematoma. TECHNIQUE CT of the abdomen and pelvis without contrast. Coronal and sagittal reconstructions were obtained. This CT exam was performed with one or more of the following radiation dose reduction techniques: automatic exposure control, adjustment of mA and/or kV according to patient size, and iterative reconstruction. COMPARISON CT abdomen dated 02/26/2017. FINDINGS ABDOMEN: Moderate bilateral pleural effusions have increased in size since the prior study. There is increased atelectasis in both lung bases. There is an increased volume of free intraperitoneal air since the prior study of 02/26/2017. Patient has a midline incision, appears similar to the prior exam. This would suggest a bowel perforation. There is a air and fluid collection in the left upper quadrant consistent with an abscess. This collection measures 16 x 8 x 10.3 cm. This probably represents an abscess, however lack of contrast limits evaluation. There is some irregularity of the greater curvature of the gastric body. There is a mass intimately associated with the third portion of the duodenum. This showed abnormal enhancement on the prior CT scan and is concerning for malignancy. This could potentially be from the uncinate process in the pancreas, however I suspect duodenal origin. [facility] A Service of [facility] RADIOLOGY TEXT RESULTS PATIENT: SOL CUEVAS LOCATION: C3A 323-01 : 67 UNIT #: [id number] AGE: [address]: Magda Gracia MD SEX: M ORDER DR: There is a small volume of ascites that has increased. The right kidney is enlarged and cystic degeneration. There is prominence of the pararenal fat. Given the staghorn calculus, this is consistent with an area of XGP (xanthogranulomatous pyelonephritis. There is atrophy of the left kidney with multiple renal calculi. There are several calculi within the left renal collecting system. No hydronephrosis. The abdominal aorta is normal in caliber. There is some borderline enlargement of the retroperitoneal lymph nodes, however these are unchanged. Patient has an IVC filter. PELVIS: Moderate ascites. The bladder is decompressed with a Cain catheter. There is generalized anasarca within the soft tissues of the abdomen and pelvis. IMPRESSION 1. Development of large volume of pneumoperitoneum suggests interval bowel perforation. Patient has had a surgical drain in the left upper quadrant removed. 2. Development of a large air and fluid collection in the left upper quadrant concerning for an intraabdominal abscess (up to 16 cm). The lack of IV contrast limits evaluation to determine if this is a truly loculated collection. 3. Irregularity of the gastric fundus along the greater curvature. Given the irregularity in this area I suspect this probably represents the area of perforation, however this is not definitive, particularly without contrast. 4. Increased size of moderate bilateral pleural effusions and resultant atelectasis in the lung bases. 5. Enlarged right kidney with central staghorn calculi consistent with an XGP. 6. Multiple calculi within the proximal left renal collecting system, however no significant hydronephrosis. 7. Mass intimately associated with the third portion of the duodenum measuring up to 2.4 cm. 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 Dedicated pancreatic imaging would be recommended to help differentiate. Consider CT or MRI with and without contrast. 8. Moderate volume of ascites is increased from the prior study. 9. Unexpected findings were called to the patient's nurse at 14:52 on 03/02/2017. The patient's nurse is named Alisha. STAT * RESULT [facility]. [facility] A Service of [facility] RADIOLOGY TEXT RESULTS PATIENT: SOL CUEVAS LOCATION: [facility] 323- : 67 UNIT #: [id number] AGE: [address]: Magda Gracia MD SEX: M ORDER DR: Dictated by... Neel Kendall M.D. THIS IS AN ELECTRONICALLY VERIFIED REPORT Neel Kendall M.D. at 03/03/2017 7:45 AM TONIE/aurora TD: 03/02/2017 15:06 JOB #: [id number] MEDICAL IMAGING REPORT Page 1 of 1 COPY
[~2017-02-19 09:46] MED LIST changes: -CARAFATE PO; -COGENTIN PO; -NORVASC PO
[2017-02-19 11:32] LABS: ALBUMIN SERUM 2.5 g/dL (3.5-5.0); BILIRUBIN, DIRECT 0.2 mg/dL (0.0-0.2); BILIRUBIN,INDIRECT 0.5 mg/dL (0.0-0.9); BILIRUBIN,TOTAL 0.7 mg/dL (0.2-2.0); CALCIUM SERUM 9.2 mg/dL (8.4-10.2); CREATININE SERUM 2.2 mg/dL (0.6-1.4); GLOM FILT RATE Estimated 33.7 mL/min (>60); PROTEIN TOTAL SERUM 5.2 g/dL (6.0-8.3)
[2017-02-19 11:36] LABS: POTASSIUM 2.7 mmol/L (3.5-5.1)
[2017-02-19 11:59] LABS: URINE SOURCE CLEAN CATCH
[2017-02-19 12:04] LABS: URINE APPEARANCE CLOUDY; URINE BILIRUBIN NEG (NEG); URINE BLOOD 2+ (NEG); URINE COLOR YELLOW; URINE GLUCOSE NEG (NEG); URINE KETONE NEG (NEG); URINE LEUKOCYTE ESTERASE 3+ (NEG); URINE NITRATE NEG (NEG); URINE PROTEIN 1+ (NEG); URINE SPECIFIC GRAVITY 1.011 (1.003-1.035); URINE UROBILINOGEN 0.2 MG/DL (NEG)
[2017-02-19 12:06] LABS: CULTURE INDICATED? YES; URINE BACTERIA AUWI NEG (NEGATIVE); URINE SQUAMOUS EPITHELIAL CELL NONE SEEN /[HPF]; UWBCS1 AUWI 100-200 (0-5)
[2017-02-19 13:44] LABS: POC - CKMB <1.0 ng/mL (0.0-7.9); POC - TROPONIN <0.05 ng/mL (<=0.05)
[2017-02-19 13:45] LABS: BASOPHIL% 0.1 % (0-2.5); HEMATOCRIT 37.3 % (38.0-50.0); HEMOGLOBIN 11.5 gm/dL (13.0-16.0); LYMPHOCYTE# 1.3 X10e3 (1.0-3.5); LYMPHOCYTE% 21.9 % (17.0-45.0); MEAN CELL VOLUME 79.4 FL (83-96); MEAN CORPUSCULAR HEMOGLOBIN 24.4 PG (28-34); MEAN CORPUSCULAR HGB CONC 30.7 g/dL (30-36); MEAN PLATELET VOLUME 8.4 FL (6.5-11.5); MONOCYTE# 0.3 X10e3 (0-1.0); NEUTROPHIL# 4.3 X10e3 (1.5-7.1); PLATELET COUNT 276 X10e3 (140-420); RED BLOOD COUNT 4.71 X10e (3.90-5.60); RED CELL DISTRIBUTION WIDTH 25.2 % (11.0-15.5); WHITE BLOOD COUNT 5.8 X10e3 (4.0-10.5)
[2017-02-19 13:50] LABS: DIFF IND YES
[2017-02-19] MEDS ORDERED: PROTONIX PO (14:07)
[2017-02-19] MEDS ORDERED: NORVASC PO (14:07)
[2017-02-19] MEDS ORDERED: CARAFATE PO (14:08)
[2017-02-19] MEDS ORDERED: LEVOXYL125 MC1 PO (14:08)
[2017-02-19] MEDS ORDERED: HALDOL PO (14:08)
[2017-02-19] MEDS ORDERED: COGENTIN PO (14:09)
[2017-02-19] MEDS ORDERED: SENSIPAR60 MG PO (14:09)
[2017-02-19 14:10] LABS: PLATELET ESTIMATE NORMAL (NORMAL)
[2017-02-19 14:11] LABS: BURR CELLS PRESENT
[2017-02-19 14:12] LABS: ACANTHOCYTES PRESENT
[2017-02-19 15:58] LABS: INR 1.1; PROTHROMBIN TIME (PATIENT) 11.6 SECONDS (9.6-11.5)
[2017-02-19 21:40] LABS: CALCIUM SERUM 8.2 mg/dL (8.4-10.2); CREATININE SERUM 2.3 mg/dL (0.6-1.4); GLOM FILT RATE Estimated 31.9 mL/min (>60); POTASSIUM 3.9 mmol/L (3.5-5.1)
[2017-02-20 04:12] LABS: ARTERIAL BLOOD GAS PCO2 24.9 mmHg (35.0-45.0); ARTERIAL BLOOD GAS pH 7.259 (7.350-7.450)
[2017-02-20 04:13] LABS: ARTERIAL BLD GAS O2 SATURATION 98.3 % (90.0-100.0); ARTERIAL BLOOD GAS ALLEN TEST NORMAL; ARTERIAL BLOOD GAS ART SITE RIGHT RADIAL; ARTERIAL BLOOD GAS CARBOXY HB 0.2 %sat (0.0-9.0); ARTERIAL BLOOD GAS DELIVERY NASAL CANNULA; ARTERIAL BLOOD GAS HCO3 11.1 mmol/L; ARTERIAL BLOOD GAS MET HB 1.8 %sat (0.0-2.0); ARTERIAL DRAW? YES
[2017-02-20 06:23] LABS: HEMATOCRIT 33.6 % (38.0-50.0); HEMOGLOBIN 10.3 gm/dL (13.0-16.0); LYMPHOCYTE# 0.9 X10e3 (1.0-3.5); MEAN CELL VOLUME 80.1 FL (83-96); MEAN CORPUSCULAR HEMOGLOBIN 24.6 PG (28-34); MEAN CORPUSCULAR HGB CONC 30.7 g/dL (30-36); MEAN PLATELET VOLUME 8.9 FL (6.5-11.5); MONOCYTE# 0.4 X10e3 (0-1.0); MONOCYTE% 2.6 % (3.0-12.0); NEUTROPHIL# 13.2 X10e3 (1.5-7.1); NEUTROPHIL% 91.4 % (40-75); PLATELET COUNT 273 X10e3 (140-420); RED BLOOD COUNT 4.19 X10e (3.90-5.60); RED CELL DISTRIBUTION WIDTH 25.6 % (11.0-15.5)
[2017-02-20 06:37] LABS: CREATININE,RANDOM URINE 68 mg/dL; DIFF IND NO; SODIUM URINE RANDOM 69 mmol/L; WHITE BLOOD COUNT 14.4 X10e3 (4.0-10.5)
[2017-02-20 06:38] LABS: INR 1.3; PROTHROMBIN TIME (PATIENT) 13.7 SECONDS (9.6-11.5)
[2017-02-20 06:59] LABS: ALBUMIN SERUM 1.7 g/dL (3.5-5.0); BILIRUBIN,TOTAL 0.6 mg/dL (0.2-2.0); BUN/CREATININE RATIO 10.35; CALCIUM SERUM 8.7 mg/dL (8.4-10.2); CREATININE SERUM 2.8 mg/dL (0.6-1.4); GLOM FILT RATE Estimated 25.2 mL/min (>60); POTASSIUM 4.1 mmol/L (3.5-5.1); PROTEIN TOTAL SERUM 3.8 g/dL (6.0-8.3)
[2017-02-20 09:10] LABS: ARTERIAL BLOOD GAS PCO2 32.5 mmHg (35.0-45.0); ARTERIAL BLOOD GAS PO2 35.6 mmHg (80.0-100); ARTERIAL BLOOD GAS pH 7.215 (7.350-7.450)
[2017-02-20 09:11] LABS: ARTERIAL BLD GAS O2 SATURATION 63.8 % (90.0-100.0); ARTERIAL BLOOD GAS CARBOXY HB 0.3 %sat (0.0-9.0); ARTERIAL BLOOD GAS HCO3 13.1 mmol/L; ARTERIAL BLOOD GAS MET HB 1.3 %sat (0.0-2.0)
[2017-02-20 09:12] LABS: ARTERIAL BLOOD GAS DELIVERY NASAL CANNULA; ARTERIAL DRAW? NO
[2017-02-20 12:21] LABS: URIC ACID 8.5 mg/dL (2.6-7.2)
[2017-02-21 04:08] LABS: DIFF IND YES; HEMATOCRIT 28.9 % (38.0-50.0); HEMOGLOBIN 9.1 gm/dL (13.0-16.0); LYMPHOCYTE% 4.9 % (17.0-45.0); MEAN CELL VOLUME 77.7 FL (83-96); MEAN CORPUSCULAR HEMOGLOBIN 24.5 PG (28-34); MEAN CORPUSCULAR HGB CONC 31.6 g/dL (30-36); MEAN PLATELET VOLUME 9.2 FL (6.5-11.5); MONOCYTE# 0.9 X10e3 (0-1.0); MONOCYTE% 4.6 % (3.0-12.0); NEUTROPHIL# 17.7 X10e3 (1.5-7.1); NEUTROPHIL% 90.5 % (40-75); PLATELET COUNT 178 X10e3 (140-420); RED BLOOD COUNT 3.72 X10e (3.90-5.60); RED CELL DISTRIBUTION WIDTH 24.9 % (11.0-15.5); WHITE BLOOD COUNT 19.5 X10e3 (4.0-10.5)
[2017-02-21 04:26] LABS: ACANTHOCYTES PRESENT; MICROCYTOSIS SL; PLATELET ESTIMATE DECREASED (NORMAL)
[2017-02-21 04:27] LABS: POIKILOCYTOSIS SL
[2017-02-21 04:49] LABS: ALBUMIN SERUM 1.6 g/dL (3.5-5.0); BILIRUBIN,TOTAL 0.9 mg/dL (0.2-2.0); CALCIUM SERUM 8.6 mg/dL (8.4-10.2); CREATININE SERUM 2.6 mg/dL (0.6-1.4); GLOM FILT RATE Estimated 27.5 mL/min (>60); PHOSPHOROUS 4.1 mg/dL (2.5-4.6); POTASSIUM 3.1 mmol/L (3.5-5.1); PROTEIN TOTAL SERUM 3.7 g/dL (6.0-8.3)
[2017-02-21 16:06] LABS: MAGNESIUM 1.8 mg/dL (1.6-3.0); POTASSIUM 3.7 mmol/L (3.5-5.1)
[2017-02-22 05:17] LABS: BASOPHIL# 0.3 X10e3 (0-0.3); BASOPHIL% 1.3 % (0-2.5); HEMATOCRIT 25.5 % (38.0-50.0); LYMPHOCYTE# 1.5 X10e3 (1.0-3.5); LYMPHOCYTE% 6.9 % (17.0-45.0); MEAN CELL VOLUME 77.1 FL (83-96); MEAN CORPUSCULAR HEMOGLOBIN 24.2 PG (28-34); MEAN CORPUSCULAR HGB CONC 31.4 g/dL (30-36); MEAN PLATELET VOLUME 8.7 FL (6.5-11.5); MONOCYTE# 0.6 X10e3 (0-1.0); MONOCYTE% 2.8 % (3.0-12.0); PLATELET COUNT 164 X10e3 (140-420); RED BLOOD COUNT 3.31 X10e (3.90-5.60); WHITE BLOOD COUNT 22.5 X10e3 (4.0-10.5)
[2017-02-22 05:19] LABS: DIFF IND NO
[2017-02-22 06:15] LABS: ALBUMIN SERUM 1.4 g/dL (3.5-5.0); BILIRUBIN,TOTAL 0.7 mg/dL (0.2-2.0); BUN/CREATININE RATIO 13.93; CALCIUM SERUM 8.8 mg/dL (8.4-10.2); CREATININE SERUM 3.3 mg/dL (0.6-1.4); GLOM FILT RATE Estimated 20.6 mL/min (>60); MAGNESIUM 1.9 mg/dL (1.6-3.0); POTASSIUM 3.2 mmol/L (3.5-5.1); PROTEIN TOTAL SERUM 3.3 g/dL (6.0-8.3)
[2017-02-23 05:50] LABS: HEMATOCRIT 23.7 % (38.0-50.0); HEMOGLOBIN 7.4 gm/dL (13.0-16.0); MEAN CELL VOLUME 78.2 FL (83-96); MEAN CORPUSCULAR HEMOGLOBIN 24.6 PG (28-34); MEAN CORPUSCULAR HGB CONC 31.4 g/dL (30-36); MEAN PLATELET VOLUME 9.3 FL (6.5-11.5); RED BLOOD COUNT 3.02 X10e (3.90-5.60); RED CELL DISTRIBUTION WIDTH 24.9 % (11.0-15.5); WHITE BLOOD COUNT 18.5 X10e3 (4.0-10.5)
[2017-02-23 06:49] LABS: CALCIUM SERUM 8.5 mg/dL (8.4-10.2); CREATININE SERUM 2.2 mg/dL (0.6-1.4); GLOM FILT RATE Estimated 33.7 mL/min (>60); POTASSIUM 3.2 mmol/L (3.5-5.1)
[2017-02-24 10:44] LABS: HEMATOCRIT 26.6 % (38.0-50.0); HEMOGLOBIN 8.2 gm/dL (13.0-16.0); MEAN CELL VOLUME 78.7 FL (83-96); MEAN CORPUSCULAR HEMOGLOBIN 24.1 PG (28-34); MEAN CORPUSCULAR HGB CONC 30.6 g/dL (30-36); MEAN PLATELET VOLUME 9.7 FL (6.5-11.5); RED BLOOD COUNT 3.38 X10e (3.90-5.60); WHITE BLOOD COUNT 13.4 X10e3 (4.0-10.5)
[2017-02-24 11:10] LABS: ALBUMIN SERUM 1.7 g/dL (3.5-5.0); BILIRUBIN,TOTAL 0.9 mg/dL (0.2-2.0); CREATININE SERUM 2.4 mg/dL (0.6-1.4); GLOM FILT RATE Estimated 30.3 mL/min (>60); MAGNESIUM 1.7 mg/dL (1.6-3.0); PHOSPHOROUS 2.4 mg/dL (2.5-4.6); POTASSIUM 3.6 mmol/L (3.5-5.1); PROTEIN TOTAL SERUM 3.8 g/dL (6.0-8.3)
[2017-02-25 06:28] LABS: ALBUMIN SERUM 1.6 g/dL (3.5-5.0); BILIRUBIN,TOTAL 0.6 mg/dL (0.2-2.0); BUN/CREATININE RATIO 11.5; CALCIUM SERUM 8.6 mg/dL (8.4-10.2); GLOM FILT RATE Estimated 37.8 mL/min (>60); MAGNESIUM 1.5 mg/dL (1.6-3.0); PHOSPHOROUS 1.9 mg/dL (2.5-4.6); POTASSIUM 3.3 mmol/L (3.5-5.1); PROTEIN TOTAL SERUM 3.5 g/dL (6.0-8.3)
[2017-02-25 17:57] LABS: BASOPHIL% 0.2 % (0-2.5); EOSINOPHIL# 0.1 X10e3 (0-0.7); EOSINOPHIL% 1.4 % (0.0-7.0); HEMATOCRIT 16.6 % (38.0-50.0); LYMPHOCYTE# 0.7 X10e3 (1.0-3.5); LYMPHOCYTE% 7.8 % (17.0-45.0); MEAN CORPUSCULAR HGB CONC 30.5 g/dL (30-36); MEAN PLATELET VOLUME 10.1 FL (6.5-11.5); MONOCYTE# 0.4 X10e3 (0-1.0); MONOCYTE% 4.6 % (3.0-12.0); NEUTROPHIL# 8.1 X10e3 (1.5-7.1); RED BLOOD COUNT 2.03 X10e (3.90-5.60); RED CELL DISTRIBUTION WIDTH 24.6 % (11.0-15.5); WHITE BLOOD COUNT 9.4 X10e3 (4.0-10.5)
[2017-02-25 18:09] LABS: DIFF IND YES; HEMOGLOBIN 5.1 gm/dL (13.0-16.0); MEAN CELL VOLUME 81.8 FL (83-96); PLATELET COUNT 96 X10e3 (140-420)
[2017-02-25 18:40] LABS: BURR CELLS PRESENT; PLATELET ESTIMATE DECREASED (NORMAL); POIKILOCYTOSIS MOD; TARGET CELLS MOD
[2017-02-25 18:42] LABS: ACANTHOCYTES PRESENT; HYPOCHROMIA MOD
[2017-02-25 19:39] LABS: ALBUMIN SERUM 1.3 g/dL (3.5-5.0); BILIRUBIN,TOTAL 0.9 mg/dL (0.2-2.0); BUN/CREATININE RATIO 11.66; CALCIUM SERUM 8.3 mg/dL (8.4-10.2); CREATININE SERUM 2.4 mg/dL (0.6-1.4); GLOM FILT RATE Estimated 30.3 mL/min (>60); POTASSIUM 4.3 mmol/L (3.5-5.1)
[2017-02-25 19:59] LABS: ARTERIAL BLOOD GAS pH 7.163 (7.350-7.450)
[2017-02-25 20:00] LABS: ARTERIAL BLD GAS O2 SATURATION 95.7 % (90.0-100.0); ARTERIAL BLOOD GAS ALLEN TEST NORMAL; ARTERIAL BLOOD GAS ART SITE RIGHT RADIAL; ARTERIAL BLOOD GAS DELIVERY ROOM AIR; ARTERIAL BLOOD GAS HCO3 7.4 mmol/L; ARTERIAL BLOOD GAS MET HB 2.1 %sat (0.0-2.0); ARTERIAL BLOOD GAS PCO2 20.6 mmHg (35.0-45.0); ARTERIAL BLOOD GAS PO2 97.8 mmHg (80.0-100); ARTERIAL DRAW? YES
[2017-02-26 01:24] LABS: ARTERIAL BLD GAS O2 SATURATION 99.2 % (90.0-100.0); ARTERIAL BLOOD GAS ART SITE LEFT BRACHIAL; ARTERIAL BLOOD GAS CARBOXY HB 0.3 %sat (0.0-9.0); ARTERIAL BLOOD GAS DELIVERY NASAL CANNULA; ARTERIAL BLOOD GAS HCO3 15.1 mmol/L; ARTERIAL BLOOD GAS MET HB 1.2 %sat (0.0-2.0); ARTERIAL BLOOD GAS PCO2 22.2 mmHg (35.0-45.0); ARTERIAL DRAW? YES
[2017-02-26 05:30] LABS: HEMATOCRIT 25.8 % (38.0-50.0)
[2017-02-26 05:31] LABS: HEMOGLOBIN 8.4 gm/dL (13.0-16.0)
[2017-02-26 06:17] LABS: BUN/CREATININE RATIO 12.3; CALCIUM SERUM 7.3 mg/dL (8.4-10.2); CREATININE SERUM 2.6 mg/dL (0.6-1.4); GLOM FILT RATE Estimated 27.5 mL/min (>60); MAGNESIUM 1.7 mg/dL (1.6-3.0); PHOSPHOROUS 3.7 mg/dL (2.5-4.6); POTASSIUM 3.8 mmol/L (3.5-5.1)
[2017-02-26 10:13] LABS: HEMATOCRIT 21.1 % (38.0-50.0)
[2017-02-26 10:17] LABS: HEMOGLOBIN 6.9 gm/dL (13.0-16.0)
[2017-02-26 10:28] LABS: INR 1.4; PROTHROMBIN TIME (PATIENT) 15.2 SECONDS (10.0-11.7)
[2017-02-26 10:45] LABS: BILIRUBIN,TOTAL 0.3 mg/dL (0.2-2.0); BUN/CREATININE RATIO 12.96; CALCIUM SERUM 7.4 mg/dL (8.4-10.2); CREATININE SERUM 2.7 mg/dL (0.6-1.4); GLOM FILT RATE Estimated 26.3 mL/min (>60); MAGNESIUM 1.8 mg/dL (1.6-3.0)
[2017-02-26 18:50] LABS: HEMATOCRIT 20.1 % (38.0-50.0); HEMOGLOBIN 7.9 gm/dL (13.0-16.0)
[2017-02-27] LABS: HEMATOCRIT 13.9 % (38.0-50.0)
[2017-02-27 00:03] LABS: HEMOGLOBIN 4.7 gm/dL (13.0-16.0)
[2017-02-27 04:59] LABS: ARTERIAL BLD GAS O2 SATURATION 97.2 % (90.0-100.0); ARTERIAL BLOOD GAS ALLEN TEST NORMAL; ARTERIAL BLOOD GAS ART SITE LEFT RADIAL; ARTERIAL BLOOD GAS CARBOXY HB 1.7 %sat (0.0-9.0); ARTERIAL BLOOD GAS HCO3 32.8 mmol/L; ARTERIAL BLOOD GAS PCO2 39.2 mmHg (35.0-45.0); ARTERIAL BLOOD GAS PO2 67.5 mmHg (80.0-100); ARTERIAL BLOOD GAS pH 7.531 (7.350-7.450); ARTERIAL DRAW? YES
[2017-02-27 05:20] LABS: ARTERIAL BLOOD GAS DELIVERY ROOM AIR
[2017-02-27 05:54] LABS: BASOPHIL% 0.1 % (0-2.5); HEMATOCRIT 19.8 % (38.0-50.0); LYMPHOCYTE# 1.2 X10e3 (1.0-3.5); LYMPHOCYTE% 4.9 % (17.0-45.0); MEAN CELL VOLUME 83.8 FL (83-96); MEAN CORPUSCULAR HEMOGLOBIN 27.6 PG (28-34); MEAN PLATELET VOLUME 11.8 FL (6.5-11.5); MONOCYTE% 4.3 % (3.0-12.0); NEUTROPHIL# 21.3 X10e3 (1.5-7.1); NEUTROPHIL% 90.7 % (40-75); RED BLOOD COUNT 2.37 X10e (3.90-5.60); RED CELL DISTRIBUTION WIDTH 15.5 % (11.0-15.5)
[2017-02-27 06:11] LABS: ALBUMIN SERUM 1.4 g/dL (3.5-5.0); BILIRUBIN,TOTAL 1.3 mg/dL (0.2-2.0); BUN/CREATININE RATIO 10.95; CALCIUM SERUM 7.9 mg/dL (8.4-10.2); CREATININE SERUM 2.1 mg/dL (0.6-1.4); GLOM FILT RATE Estimated 35.6 mL/min (>60); MAGNESIUM 1.7 mg/dL (1.6-3.0); POTASSIUM 4.2 mmol/L (3.5-5.1)
[2017-02-27 06:12] LABS: WHITE BLOOD COUNT 23.5 X10e3 (4.0-10.5)
[2017-02-27 06:13] LABS: HEMOGLOBIN 6.5 gm/dL (13.0-16.0); PLATELET COUNT 55 X10e3 (140-420)
[2017-02-27 06:14] LABS: DIFF IND YES
[2017-02-27 07:03] LABS: INR 1.4; PARTIAL THROMBOPLASTIN TIME 52.8 SECONDS (23.5-31.3)
[2017-02-27 07:06] LABS: PLATELET ESTIMATE INCREASED (NORMAL)
[2017-02-27 07:07] LABS: ANISOCYTOSIS MOD; HYPOCHROMIA SL; POIKILOCYTOSIS SL; RBC NORMAL YES
[2017-02-27 07:08] LABS: MICROCYTOSIS SL
[2017-02-27 08:11] LABS: ARTERIAL BLOOD GAS PCO2 33.1 mmHg (35.0-45.0); ARTERIAL BLOOD GAS pH 7.608 (7.350-7.450)
[2017-02-27 08:12] LABS: ARTERIAL BLOOD GAS ALLEN TEST NORMAL; ARTERIAL BLOOD GAS ART SITE ARTERIAL LINE; ARTERIAL BLOOD GAS CARBOXY HB 1.4 %sat (0.0-9.0); ARTERIAL BLOOD GAS DELIVERY VENT; ARTERIAL BLOOD GAS MET HB 1.1 %sat (0.0-2.0); ARTERIAL BLOOD GAS VENT MODE AC; ARTERIAL DRAW? YES
[2017-02-27 09:50] LABS: HEMATOCRIT 23.6 % (38.0-50.0)
[2017-02-27 12:43] LABS: ARTERIAL BLD GAS O2 SATURATION 99.7 % (90.0-100.0); ARTERIAL BLOOD GAS ART SITE ARTERIAL LINE; ARTERIAL BLOOD GAS CARBOXY HB 1.1 %sat (0.0-9.0); ARTERIAL BLOOD GAS DELIVERY VENT; ARTERIAL BLOOD GAS HCO3 34.2 mmol/L; ARTERIAL BLOOD GAS MET HB 0.3 %sat (0.0-2.0); ARTERIAL BLOOD GAS PCO2 36.1 mmHg (35.0-45.0); ARTERIAL BLOOD GAS VENT MODE AC; ARTERIAL BLOOD GAS pH 7.585 (7.350-7.450); ARTERIAL DRAW? YES
[2017-02-27 16:09] LABS: HEMATOCRIT 22.8 % (38.0-50.0); HEMOGLOBIN 7.7 gm/dL (13.0-16.0)
[2017-02-27 21:54] LABS: HEMATOCRIT 21.7 % (38.0-50.0); HEMOGLOBIN 7.4 gm/dL (13.0-16.0)
[2017-02-28 04:50] LABS: ARTERIAL BLD GAS O2 SATURATION 99.5 % (90.0-100.0); ARTERIAL BLOOD GAS CARBOXY HB 0.8 %sat (0.0-9.0); ARTERIAL BLOOD GAS HCO3 31.5 mmol/L; ARTERIAL BLOOD GAS PCO2 35.1 mmHg (35.0-45.0); ARTERIAL BLOOD GAS pH 7.561 (7.350-7.450)
[2017-02-28 04:51] LABS: ARTERIAL BLOOD GAS DELIVERY VENT; ARTERIAL BLOOD GAS MET HB 1.1 %sat (0.0-2.0); ARTERIAL BLOOD GAS VENT MODE AC; ARTERIAL DRAW? YES
[2017-02-28 04:57] LABS: ARTERIAL BLOOD GAS ART SITE ARTERIAL LINE
[2017-02-28 05:49] LABS: INR 1.1; PARTIAL THROMBOPLASTIN TIME 31.6 SECONDS (23.5-31.3); PROTHROMBIN TIME (PATIENT) 12.2 SECONDS (10.0-11.7)
[2017-02-28 06:18] LABS: ALBUMIN SERUM 1.8 g/dL (3.5-5.0); BILIRUBIN,TOTAL 1.1 mg/dL (0.2-2.0); BUN/CREATININE RATIO 12.59; CREATININE SERUM 2.7 mg/dL (0.6-1.4); GLOM FILT RATE Estimated 26.3 mL/min (>60); MAGNESIUM 1.8 mg/dL (1.6-3.0); PHOSPHOROUS 2.5 mg/dL (2.5-4.6); POTASSIUM 3.4 mmol/L (3.5-5.1); PROTEIN TOTAL SERUM 3.2 g/dL (6.0-8.3)
[2017-02-28 06:52] LABS: BASOPHIL% 0.1 % (0-2.5); HEMATOCRIT 24.5 % (38.0-50.0); HEMOGLOBIN 8.3 gm/dL (13.0-16.0); LYMPHOCYTE# 0.5 X10e3 (1.0-3.5); LYMPHOCYTE% 1.8 % (17.0-45.0); MEAN CELL VOLUME 85.2 FL (83-96); MEAN CORPUSCULAR HEMOGLOBIN 28.7 PG (28-34); MEAN CORPUSCULAR HGB CONC 33.7 g/dL (30-36); MEAN PLATELET VOLUME 11.6 FL (6.5-11.5); MONOCYTE# 0.7 X10e3 (0-1.0); MONOCYTE% 2.6 % (3.0-12.0); NEUTROPHIL# 25.3 X10e3 (1.5-7.1); NEUTROPHIL% 95.5 % (40-75); PLATELET COUNT 56 X10e3 (140-420); RED BLOOD COUNT 2.88 X10e (3.90-5.60); RED CELL DISTRIBUTION WIDTH 15.8 % (11.0-15.5); RETICULOCYTE 1.7 % (0.5-2.8); WHITE BLOOD COUNT 26.4 X10e3 (4.0-10.5)
[2017-02-28 06:57] LABS: DIFF IND NO
[2017-02-28 13:39] LABS: HEMATOCRIT 30.4 % (38.0-50.0); HEMOGLOBIN 10.2 gm/dL (13.0-16.0)
[2017-02-28 21:18] LABS: HEMATOCRIT 33.4 % (38.0-50.0); HEMOGLOBIN 11.5 gm/dL (13.0-16.0)
[2017-03-01 05:26] LABS: HEMATOCRIT 33.8 % (38.0-50.0); LYMPHOCYTE# 0.6 X10e3 (1.0-3.5); LYMPHOCYTE% 1.6 % (17.0-45.0); MEAN CELL VOLUME 87.5 FL (83-96); MEAN CORPUSCULAR HEMOGLOBIN 28.4 PG (28-34); MEAN CORPUSCULAR HGB CONC 32.5 g/dL (30-36); MEAN PLATELET VOLUME 10.6 FL (6.5-11.5); MONOCYTE% 2.5 % (3.0-12.0); NEUTROPHIL# 37.9 X10e3 (1.5-7.1); NEUTROPHIL% 95.9 % (40-75); RED BLOOD COUNT 3.86 X10e (3.90-5.60); RED CELL DISTRIBUTION WIDTH 15.8 % (11.0-15.5); WHITE BLOOD COUNT 39.5 X10e3 (4.0-10.5)
[2017-03-01 05:27] LABS: DIFF IND NO; PLATELET COUNT 83 X10e3 (140-420)
[2017-03-01 06:21] LABS: ALBUMIN SERUM 1.8 g/dL (3.5-5.0); BILIRUBIN,TOTAL 0.6 mg/dL (0.2-2.0); BUN/CREATININE RATIO 12.72; CALCIUM SERUM 9.5 mg/dL (8.4-10.2); CREATININE SERUM 3.3 mg/dL (0.6-1.4); GLOM FILT RATE Estimated 20.6 mL/min (>60); MAGNESIUM 1.7 mg/dL (1.6-3.0); PHOSPHOROUS 2.5 mg/dL (2.5-4.6); POTASSIUM 3.2 mmol/L (3.5-5.1); PROTEIN TOTAL SERUM 3.6 g/dL (6.0-8.3)
[2017-03-02 06:55] LABS: ALBUMIN SERUM 1.5 g/dL (3.5-5.0); BILIRUBIN,TOTAL 0.8 mg/dL (0.2-2.0); BUN/CREATININE RATIO 13.78; CREATININE SERUM 3.7 mg/dL (0.6-1.4); MAGNESIUM 1.8 mg/dL (1.6-3.0); PHOSPHOROUS 2.1 mg/dL (2.5-4.6); PROTEIN TOTAL SERUM 3.7 g/dL (6.0-8.3)
[2017-03-03 06:34] LABS: HEMATOCRIT 29.3 % (38.0-50.0); HEMOGLOBIN 9.5 gm/dL (13.0-16.0); MEAN CELL VOLUME 89.3 FL (83-96); MEAN CORPUSCULAR HEMOGLOBIN 28.9 PG (28-34); MEAN CORPUSCULAR HGB CONC 32.4 g/dL (30-36); RED BLOOD COUNT 3.28 X10e (3.90-5.60); RED CELL DISTRIBUTION WIDTH 16.3 % (11.0-15.5); WHITE BLOOD COUNT 26.9 X10e3 (4.0-10.5)
[2017-03-03 06:53] LABS: ALBUMIN SERUM 1.5 g/dL (3.5-5.0); BILIRUBIN,TOTAL 0.6 mg/dL (0.2-2.0); BUN/CREATININE RATIO 14.61; CALCIUM SERUM 9.9 mg/dL (8.4-10.2); CREATININE SERUM 3.9 mg/dL (0.6-1.4); GLOM FILT RATE Estimated 16.9 mL/min (>60); MAGNESIUM 2.2 mg/dL (1.6-3.0); PHOSPHOROUS 2.9 mg/dL (2.5-4.6); POTASSIUM 3.3 mmol/L (3.5-5.1); PROTEIN TOTAL SERUM 3.8 g/dL (6.0-8.3)
[2017-03-04 06:10] LABS: BASOPHIL# 0.1 X10e3 (0-0.3); BASOPHIL% 0.3 % (0-2.5); DIFF IND YES; EOSINOPHIL# 0.4 X10e3 (0-0.7); EOSINOPHIL% 2.1 % (0.0-7.0); LYMPHOCYTE# 0.7 X10e3 (1.0-3.5); LYMPHOCYTE% 3.8 % (17.0-45.0); MEAN CELL VOLUME 90.1 FL (83-96); MEAN CORPUSCULAR HGB CONC 32.2 g/dL (30-36); MONOCYTE# 1.8 X10e3 (0-1.0); MONOCYTE% 9.9 % (3.0-12.0); NEUTROPHIL# 15.4 X10e3 (1.5-7.1); NEUTROPHIL% 83.9 % (40-75); PLATELET COUNT 136 X10e3 (140-420); RED CELL DISTRIBUTION WIDTH 16.4 % (11.0-15.5); WHITE BLOOD COUNT 18.3 X10e3 (4.0-10.5)
[2017-03-04 06:20] LABS: ALBUMIN SERUM 1.5 g/dL (3.5-5.0); BILIRUBIN,TOTAL 0.2 mg/dL (0.2-2.0); CALCIUM SERUM 9.6 mg/dL (8.4-10.2); CREATININE SERUM 4.2 mg/dL (0.6-1.4); GLOM FILT RATE Estimated 15.4 mL/min (>60); PHOSPHOROUS 2.2 mg/dL (2.5-4.6); POTASSIUM 3.7 mmol/L (3.5-5.1)
[2017-03-04 06:29] LABS: ANISOCYTOSIS SL; BURR CELLS PRESENT; NUCLEATED RED BLOOD CELL 5 /100 ([, 0]); PLATELET ESTIMATE NORMAL (NORMAL); POLYCHROMASIA SL
[2017-03-04 06:33] LABS: POIKILOCYTOSIS SL
[2017-03-05 05:43] LABS: BASOPHIL% 0.3 % (0-2.5); EOSINOPHIL# 0.3 X10e3 (0-0.7); EOSINOPHIL% 2.3 % (0.0-7.0); HEMATOCRIT 26.4 % (38.0-50.0); HEMOGLOBIN 8.6 gm/dL (13.0-16.0); LYMPHOCYTE# 0.8 X10e3 (1.0-3.5); LYMPHOCYTE% 7.3 % (17.0-45.0); MEAN CELL VOLUME 89.1 FL (83-96); MEAN CORPUSCULAR HEMOGLOBIN 28.9 PG (28-34); MEAN CORPUSCULAR HGB CONC 32.4 g/dL (30-36); MEAN PLATELET VOLUME 10.4 FL (6.5-11.5); MONOCYTE# 1.3 X10e3 (0-1.0); MONOCYTE% 11.7 % (3.0-12.0); NEUTROPHIL% 78.4 % (40-75); PLATELET COUNT 132 X10e3 (140-420); RED BLOOD COUNT 2.96 X10e (3.90-5.60); RED CELL DISTRIBUTION WIDTH 16.3 % (11.0-15.5); WHITE BLOOD COUNT 11.5 X10e3 (4.0-10.5)
[2017-03-05 05:53] LABS: DIFF IND NO
[2017-03-05 06:46] LABS: ALBUMIN SERUM 1.4 g/dL (3.5-5.0); BILIRUBIN,TOTAL 0.3 mg/dL (0.2-2.0); BUN/CREATININE RATIO 15.9; CALCIUM SERUM 10.1 mg/dL (8.4-10.2); CREATININE SERUM 4.4 mg/dL (0.6-1.4); GLOM FILT RATE Estimated 14.6 mL/min (>60); POTASSIUM 3.1 mmol/L (3.5-5.1); PROTEIN TOTAL SERUM 3.6 g/dL (6.0-8.3)
[2017-03-06 06:15] LABS: BASOPHIL# 0.1 X10e3 (0-0.3); BASOPHIL% 0.3 % (0-2.5); EOSINOPHIL# 0.3 X10e3 (0-0.7); EOSINOPHIL% 1.3 % (0.0-7.0); HEMATOCRIT 29.6 % (38.0-50.0); HEMOGLOBIN 9.5 gm/dL (13.0-16.0); LYMPHOCYTE# 0.8 X10e3 (1.0-3.5); LYMPHOCYTE% 3.8 % (17.0-45.0); MEAN CELL VOLUME 89.5 FL (83-96); MEAN CORPUSCULAR HEMOGLOBIN 28.7 PG (28-34); MEAN CORPUSCULAR HGB CONC 32.1 g/dL (30-36); MEAN PLATELET VOLUME 10.3 FL (6.5-11.5); MONOCYTE# 1.9 X10e3 (0-1.0); MONOCYTE% 9.6 % (3.0-12.0); NEUTROPHIL# 16.8 X10e3 (1.5-7.1); PLATELET COUNT 145 X10e3 (140-420); RED BLOOD COUNT 3.31 X10e (3.90-5.60); RED CELL DISTRIBUTION WIDTH 16.4 % (11.0-15.5)
[2017-03-06 06:28] LABS: DIFF IND YES; WHITE BLOOD COUNT 19.7 X10e3 (4.0-10.5)
[2017-03-06 06:30] LABS: ALBUMIN SERUM 1.6 g/dL (3.5-5.0); BILIRUBIN,TOTAL 0.1 mg/dL (0.2-2.0); BUN/CREATININE RATIO 14.85; CALCIUM SERUM 9.6 mg/dL (8.4-10.2); CREATININE SERUM 3.5 mg/dL (0.6-1.4); GLOM FILT RATE Estimated 19.2 mL/min (>60); MAGNESIUM 1.6 mg/dL (1.6-3.0); PHOSPHOROUS 1.9 mg/dL (2.5-4.6); POTASSIUM 3.2 mmol/L (3.5-5.1); PROTEIN TOTAL SERUM 4.5 g/dL (6.0-8.3)
[2017-03-06 07:07] LABS: PLATELET ESTIMATE NORMAL (NORMAL)
[2017-03-06 07:08] LABS: ANISOCYTOSIS SL
[2017-03-06 07:11] LABS: POIKILOCYTOSIS SL; POLYCHROMASIA SL
[2017-03-07 08:00] LABS: BASOPHIL# 0.1 X10e3 (0-0.3); BASOPHIL% 0.4 % (0-2.5); EOSINOPHIL# 0.4 X10e3 (0-0.7); EOSINOPHIL% 2.6 % (0.0-7.0); HEMATOCRIT 28.6 % (38.0-50.0); LYMPHOCYTE% 6.4 % (17.0-45.0); MEAN CELL VOLUME 90.9 FL (83-96); MEAN CORPUSCULAR HEMOGLOBIN 28.7 PG (28-34); MEAN CORPUSCULAR HGB CONC 31.6 g/dL (30-36); MONOCYTE# 1.3 X10e3 (0-1.0); MONOCYTE% 8.3 % (3.0-12.0); NEUTROPHIL% 82.3 % (40-75); PLATELET COUNT 189 X10e3 (140-420); RED BLOOD COUNT 3.15 X10e (3.90-5.60); WHITE BLOOD COUNT 15.8 X10e3 (4.0-10.5)
[2017-03-07 08:04] LABS: DIFF IND NO
[2017-03-07 08:21] LABS: ALBUMIN SERUM 1.7 g/dL (3.5-5.0); BILIRUBIN,TOTAL 0.3 mg/dL (0.2-2.0); BUN/CREATININE RATIO 17.87; CALCIUM SERUM 9.7 mg/dL (8.4-10.2); CREATININE SERUM 3.3 mg/dL (0.6-1.4); GLOM FILT RATE Estimated 20.6 mL/min (>60); POTASSIUM 3.5 mmol/L (3.5-5.1); PROTEIN TOTAL SERUM 4.5 g/dL (6.0-8.3)
[2017-03-08 07:40] LABS: BUN/CREATININE RATIO 19.71; CALCIUM SERUM 9.5 mg/dL (8.4-10.2); CREATININE SERUM 3.5 mg/dL (0.6-1.4); GLOM FILT RATE Estimated 19.2 mL/min (>60); MAGNESIUM 1.8 mg/dL (1.6-3.0); PHOSPHOROUS 3.6 mg/dL (2.5-4.6); POTASSIUM 3.1 mmol/L (3.5-5.1)
[2017-03-09 14:37] LABS: HEMOGLOBIN 8.8 gm/dL (13.0-16.0); MEAN CELL VOLUME 89.3 FL (83-96); MEAN CORPUSCULAR HEMOGLOBIN 28.1 PG (28-34); MEAN CORPUSCULAR HGB CONC 31.4 g/dL (30-36); MEAN PLATELET VOLUME 10.8 FL (6.5-11.5); RED BLOOD COUNT 3.14 X10e (3.90-5.60); RED CELL DISTRIBUTION WIDTH 16.3 % (11.0-15.5); WHITE BLOOD COUNT 20.5 X10e3 (4.0-10.5)
[2017-03-09 14:54] LABS: BILIRUBIN,TOTAL 0.4 mg/dL (0.2-2.0); BUN/CREATININE RATIO 23.61; CALCIUM SERUM 9.5 mg/dL (8.4-10.2); CREATININE SERUM 3.6 mg/dL (0.6-1.4); GLOM FILT RATE Estimated 18.6 mL/min (>60); MAGNESIUM 1.9 mg/dL (1.6-3.0); PHOSPHOROUS 3.9 mg/dL (2.5-4.6); POTASSIUM 3.1 mmol/L (3.5-5.1); PROTEIN TOTAL SERUM 5.1 g/dL (6.0-8.3)
[2017-03-10 10:29] LABS: HEMATOCRIT 27.8 % (38.0-50.0); HEMOGLOBIN 8.9 gm/dL (13.0-16.0); MEAN CORPUSCULAR HEMOGLOBIN 28.1 PG (28-34); MEAN CORPUSCULAR HGB CONC 31.9 g/dL (30-36); MEAN PLATELET VOLUME 10.3 FL (6.5-11.5); RED BLOOD COUNT 3.16 X10e (3.90-5.60); RED CELL DISTRIBUTION WIDTH 16.3 % (11.0-15.5); WHITE BLOOD COUNT 19.3 X10e3 (4.0-10.5)
[2017-03-10 10:52] LABS: ALBUMIN SERUM 1.9 g/dL (3.5-5.0); BILIRUBIN,TOTAL 0.8 mg/dL (0.2-2.0); BUN/CREATININE RATIO 26.66; CALCIUM SERUM 9.5 mg/dL (8.4-10.2); CREATININE SERUM 3.3 mg/dL (0.6-1.4); GLOM FILT RATE Estimated 20.6 mL/min (>60); POTASSIUM 3.2 mmol/L (3.5-5.1); PROTEIN TOTAL SERUM 5.1 g/dL (6.0-8.3)
[2017-03-10 11:24] LABS: INR 1.2; PARTIAL THROMBOPLASTIN TIME 26.6 SECONDS (23.5-31.3); PROTHROMBIN TIME (PATIENT) 12.6 SECONDS (10.0-11.7)
[2017-03-10 11:34] LABS: MAGNESIUM 1.8 mg/dL (1.6-3.0); PHOSPHOROUS 4.2 mg/dL (2.5-4.6)
[2017-03-11 10:09] LABS: ALBUMIN SERUM 1.8 g/dL (3.5-5.0); BILIRUBIN,TOTAL 0.3 mg/dL (0.2-2.0); BUN/CREATININE RATIO 30.33; CALCIUM SERUM 9.5 mg/dL (8.4-10.2); GLOM FILT RATE Estimated 23.2 mL/min (>60); PHOSPHOROUS 3.7 mg/dL (2.5-4.6); POTASSIUM 4.5 mmol/L (3.5-5.1); PROTEIN TOTAL SERUM 4.5 g/dL (6.0-8.3)
[2017-03-11 10:12] LABS: HEMATOCRIT 27.8 % (38.0-50.0); HEMOGLOBIN 9.1 gm/dL (13.0-16.0); MEAN CELL VOLUME 87.4 FL (83-96); MEAN CORPUSCULAR HEMOGLOBIN 28.7 PG (28-34); MEAN CORPUSCULAR HGB CONC 32.8 g/dL (30-36); MEAN PLATELET VOLUME 10.1 FL (6.5-11.5); RED BLOOD COUNT 3.18 X10e (3.90-5.60); RED CELL DISTRIBUTION WIDTH 16.4 % (11.0-15.5); WHITE BLOOD COUNT 17.6 X10e3 (4.0-10.5)
[2017-03-12 08:01] LABS: HEMATOCRIT 30.8 % (38.0-50.0); HEMOGLOBIN 9.7 gm/dL (13.0-16.0); MEAN CELL VOLUME 88.9 FL (83-96); MEAN CORPUSCULAR HEMOGLOBIN 28.1 PG (28-34); MEAN CORPUSCULAR HGB CONC 31.6 g/dL (30-36); MEAN PLATELET VOLUME 10.1 FL (6.5-11.5); RED BLOOD COUNT 3.47 X10e (3.90-5.60); RED CELL DISTRIBUTION WIDTH 16.8 % (11.0-15.5); WHITE BLOOD COUNT 19.8 X10e3 (4.0-10.5)
[2017-03-12 08:06] LABS: BUN/CREATININE RATIO 32.75; CALCIUM SERUM 10.4 mg/dL (8.4-10.2); CREATININE SERUM 2.9 mg/dL (0.6-1.4); GLOM FILT RATE Estimated 24.1 mL/min (>60); MAGNESIUM 2.2 mg/dL (1.6-3.0); PHOSPHOROUS 3.7 mg/dL (2.5-4.6); POTASSIUM 4.8 mmol/L (3.5-5.1)
[2017-03-13 06:15] LABS: BASOPHIL# 0.2 X10e3 (0-0.3); BASOPHIL% 0.9 % (0-2.5); EOSINOPHIL# 0.4 X10e3 (0-0.7); EOSINOPHIL% 2.5 % (0.0-7.0); HEMATOCRIT 28.7 % (38.0-50.0); HEMOGLOBIN 9.1 gm/dL (13.0-16.0); LYMPHOCYTE# 1.1 X10e3 (1.0-3.5); LYMPHOCYTE% 6.9 % (17.0-45.0); MEAN CELL VOLUME 88.4 FL (83-96); MEAN CORPUSCULAR HEMOGLOBIN 28.2 PG (28-34); MEAN CORPUSCULAR HGB CONC 31.8 g/dL (30-36); MEAN PLATELET VOLUME 10.2 FL (6.5-11.5); MONOCYTE# 1.1 X10e3 (0-1.0); MONOCYTE% 6.5 % (3.0-12.0); NEUTROPHIL# 13.5 X10e3 (1.5-7.1); NEUTROPHIL% 83.2 % (40-75); PLATELET COUNT 610 X10e3 (140-420); RED BLOOD COUNT 3.25 X10e (3.90-5.60); RED CELL DISTRIBUTION WIDTH 16.8 % (11.0-15.5); WHITE BLOOD COUNT 16.3 X10e3 (4.0-10.5)
[2017-03-13 06:16] LABS: DIFF IND YES
[2017-03-13 06:34] LABS: ALBUMIN SERUM 2.3 g/dL (3.5-5.0); BILIRUBIN,TOTAL 0.4 mg/dL (0.2-2.0); BUN/CREATININE RATIO 39.6; CALCIUM SERUM 10.2 mg/dL (8.4-10.2); CREATININE SERUM 2.5 mg/dL (0.6-1.4); GLOM FILT RATE Estimated 28.9 mL/min (>60); MAGNESIUM 2.2 mg/dL (1.6-3.0); PHOSPHOROUS 3.6 mg/dL (2.5-4.6); POTASSIUM 4.6 mmol/L (3.5-5.1); PROTEIN TOTAL SERUM 6.2 g/dL (6.0-8.3)
[2017-03-13 06:43] LABS: ANISOCYTOSIS SL; PLATELET ESTIMATE INCREASED (NORMAL); POIKILOCYTOSIS SL
[2017-03-14 10:02] LABS: HEMATOCRIT 29.9 % (38.0-50.0); HEMOGLOBIN 9.5 gm/dL (13.0-16.0); MEAN CELL VOLUME 88.6 FL (83-96); MEAN CORPUSCULAR HEMOGLOBIN 28.2 PG (28-34); MEAN CORPUSCULAR HGB CONC 31.8 g/dL (30-36); MEAN PLATELET VOLUME 9.6 FL (6.5-11.5); RED BLOOD COUNT 3.37 X10e (3.90-5.60); RED CELL DISTRIBUTION WIDTH 16.7 % (11.0-15.5); WHITE BLOOD COUNT 18.8 X10e3 (4.0-10.5)
[2017-03-14 10:27] LABS: BILIRUBIN,TOTAL 0.5 mg/dL (0.2-2.0); BUN/CREATININE RATIO 45.21; CALCIUM SERUM 10.7 mg/dL (8.4-10.2); CREATININE SERUM 2.3 mg/dL (0.6-1.4); GLOM FILT RATE Estimated 31.9 mL/min (>60); MAGNESIUM 2.4 mg/dL (1.6-3.0); PHOSPHOROUS 3.8 mg/dL (2.5-4.6); POTASSIUM 4.7 mmol/L (3.5-5.1); PROTEIN TOTAL SERUM 5.4 g/dL (6.0-8.3)
[2017-03-15 07:09] LABS: BUN/CREATININE RATIO 43.47; CALCIUM SERUM 10.6 mg/dL (8.4-10.2); CREATININE SERUM 2.3 mg/dL (0.6-1.4); GLOM FILT RATE Estimated 31.9 mL/min (>60); MAGNESIUM 2.4 mg/dL (1.6-3.0); POTASSIUM 4.7 mmol/L (3.5-5.1)
[2017-03-16 13:49] LABS: HEMATOCRIT 29.9 % (38.0-50.0); HEMOGLOBIN 9.3 gm/dL (13.0-16.0); MEAN CELL VOLUME 90.5 FL (83-96); MEAN CORPUSCULAR HEMOGLOBIN 28.3 PG (28-34); MEAN CORPUSCULAR HGB CONC 31.2 g/dL (30-36); MEAN PLATELET VOLUME 9.2 FL (6.5-11.5); RED BLOOD COUNT 3.3 X10e (3.90-5.60); RED CELL DISTRIBUTION WIDTH 17.3 % (11.0-15.5); WHITE BLOOD COUNT 14.1 X10e3 (4.0-10.5)
[2017-03-16 15:23] LABS: BUN/CREATININE RATIO 40.95; CALCIUM SERUM 10.3 mg/dL (8.4-10.2); CREATININE SERUM 2.1 mg/dL (0.6-1.4); GLOM FILT RATE Estimated 35.6 mL/min (>60); MAGNESIUM 2.2 mg/dL (1.6-3.0); PHOSPHOROUS 2.9 mg/dL (2.5-4.6)
[2017-03-17 06:16] LABS: HEMATOCRIT 29.1 % (38.0-50.0); HEMOGLOBIN 9.1 gm/dL (13.0-16.0); MEAN CELL VOLUME 89.9 FL (83-96); MEAN CORPUSCULAR HEMOGLOBIN 28.1 PG (28-34); MEAN CORPUSCULAR HGB CONC 31.3 g/dL (30-36); MEAN PLATELET VOLUME 9.6 FL (6.5-11.5); RED BLOOD COUNT 3.24 X10e (3.90-5.60); RED CELL DISTRIBUTION WIDTH 16.9 % (11.0-15.5); WHITE BLOOD COUNT 10.8 X10e3 (4.0-10.5)
[2017-03-17 07:27] LABS: ALBUMIN SERUM 2.1 g/dL (3.5-5.0); BILIRUBIN,TOTAL 0.5 mg/dL (0.2-2.0); BUN/CREATININE RATIO 42.63; CALCIUM SERUM 10.5 mg/dL (8.4-10.2); CREATININE SERUM 1.9 mg/dL (0.6-1.4); GLOM FILT RATE Estimated 40.2 mL/min (>60); MAGNESIUM 2.2 mg/dL (1.6-3.0); PHOSPHOROUS 3.6 mg/dL (2.5-4.6); POTASSIUM 4.1 mmol/L (3.5-5.1); PROTEIN TOTAL SERUM 5.6 g/dL (6.0-8.3)
[2017-03-19 09:10] LABS: BUN/CREATININE RATIO 41.76; CALCIUM SERUM 10.1 mg/dL (8.4-10.2); CREATININE SERUM 1.7 mg/dL (0.6-1.4); PHOSPHOROUS 2.9 mg/dL (2.5-4.6); POTASSIUM 3.8 mmol/L (3.5-5.1)
[2017-03-19 10:57] LABS: BASOPHIL# 0.1 X10e3 (0-0.3); BASOPHIL% 1.1 % (0-2.5); EOSINOPHIL# 0.4 X10e3 (0-0.7); EOSINOPHIL% 5.3 % (0.0-7.0); HEMATOCRIT 25.7 % (38.0-50.0); HEMOGLOBIN 8.1 gm/dL (13.0-16.0); LYMPHOCYTE# 1.6 X10e3 (1.0-3.5); LYMPHOCYTE% 20.2 % (17.0-45.0); MEAN CELL VOLUME 89.9 FL (83-96); MEAN CORPUSCULAR HEMOGLOBIN 28.5 PG (28-34); MEAN CORPUSCULAR HGB CONC 31.7 g/dL (30-36); MEAN PLATELET VOLUME 9.7 FL (6.5-11.5); MONOCYTE# 1.1 X10e3 (0-1.0); MONOCYTE% 13.4 % (3.0-12.0); NEUTROPHIL# 4.7 X10e3 (1.5-7.1); PLATELET COUNT 542 X10e3 (140-420); RED BLOOD COUNT 2.85 X10e (3.90-5.60); RED CELL DISTRIBUTION WIDTH 17.2 % (11.0-15.5); WHITE BLOOD COUNT 7.9 X10e3 (4.0-10.5)
[2017-03-19 10:58] LABS: DIFF IND NO
[2017-03-21 16:29] LABS: CALCIUM SERUM 10.3 mg/dL (8.4-10.2); CREATININE SERUM 1.6 mg/dL (0.6-1.4); GLOM FILT RATE Estimated 49.5 mL/min (>60); MAGNESIUM 2.2 mg/dL (1.6-3.0); PHOSPHOROUS 2.6 mg/dL (2.5-4.6); POTASSIUM 3.8 mmol/L (3.5-5.1)
[2017-03-22 09:29] LABS: HEMATOCRIT 28.6 % (38.0-50.0); HEMOGLOBIN 9.1 gm/dL (13.0-16.0); MEAN CELL VOLUME 87.8 FL (83-96); MEAN CORPUSCULAR HEMOGLOBIN 27.8 PG (28-34); MEAN CORPUSCULAR HGB CONC 31.7 g/dL (30-36); MEAN PLATELET VOLUME 8.5 FL (6.5-11.5); RED BLOOD COUNT 3.26 X10e (3.90-5.60)
[2017-03-22 10:00] LABS: BUN/CREATININE RATIO 38.23; CALCIUM SERUM 10.6 mg/dL (8.4-10.2); CREATININE SERUM 1.7 mg/dL (0.6-1.4); POTASSIUM 3.9 mmol/L (3.5-5.1)
[2017-03-23 06:09] LABS: HEMOGLOBIN 8.4 gm/dL (13.0-16.0); MEAN CELL VOLUME 88.5 FL (83-96); MEAN CORPUSCULAR HEMOGLOBIN 27.4 PG (28-34); MEAN PLATELET VOLUME 9.3 FL (6.5-11.5); RED BLOOD COUNT 3.05 X10e (3.90-5.60); RED CELL DISTRIBUTION WIDTH 16.9 % (11.0-15.5); WHITE BLOOD COUNT 9.9 X10e3 (4.0-10.5)
[2017-03-23 06:38] LABS: CALCIUM SERUM 10.5 mg/dL (8.4-10.2); CREATININE SERUM 1.5 mg/dL (0.6-1.4); GLOM FILT RATE Estimated 53.5 mL/min (>60); POTASSIUM 3.8 mmol/L (3.5-5.1)
[2017-03-24 05:16] LABS: HEMATOCRIT 26.5 % (38.0-50.0); HEMOGLOBIN 8.3 gm/dL (13.0-16.0); MEAN CELL VOLUME 88.9 FL (83-96); MEAN CORPUSCULAR HGB CONC 31.5 g/dL (30-36); MEAN PLATELET VOLUME 9.5 FL (6.5-11.5); RED BLOOD COUNT 2.98 X10e (3.90-5.60); RED CELL DISTRIBUTION WIDTH 16.7 % (11.0-15.5)
[2017-03-24 06:59] LABS: CALCIUM SERUM 10.8 mg/dL (8.4-10.2); CREATININE SERUM 1.6 mg/dL (0.6-1.4); GLOM FILT RATE Estimated 49.5 mL/min (>60); MAGNESIUM 2.1 mg/dL (1.6-3.0)
[2017-03-24 08:54] LABS: IRON SERUM 20 ug/dL (45-182); TOTAL IRON BINDING CAPACITY 217 ug/dL (252-460); TRANSFERRIN 155 mg/dL (180-329); TRANSFERRIN SATURATION 9 % (20-50)
[2017-03-25 05:59] LABS: MEAN CORPUSCULAR HGB CONC 31.8 g/dL (30-36); MEAN PLATELET VOLUME 8.8 FL (6.5-11.5); RED BLOOD COUNT 2.84 X10e (3.90-5.60); RED CELL DISTRIBUTION WIDTH 16.3 % (11.0-15.5); WHITE BLOOD COUNT 6.4 X10e3 (4.0-10.5)
[2017-03-25 06:11] LABS: BUN/CREATININE RATIO 39.37; CALCIUM SERUM 10.8 mg/dL (8.4-10.2); CREATININE SERUM 1.6 mg/dL (0.6-1.4); GLOM FILT RATE Estimated 49.5 mL/min (>60); POTASSIUM 3.9 mmol/L (3.5-5.1)
[2017-03-25 18:24] LABS: ALBUMIN SERUM 2.3 g/dL (3.5-5.0); BILIRUBIN,TOTAL 0.6 mg/dL (0.2-2.0); BUN/CREATININE RATIO 38.12; CALCIUM SERUM 10.3 mg/dL (8.4-10.2); CREATININE SERUM 1.6 mg/dL (0.6-1.4); GLOM FILT RATE Estimated 49.5 mL/min (>60); POTASSIUM 3.6 mmol/L (3.5-5.1); PROTEIN TOTAL SERUM 5.8 g/dL (6.0-8.3)
[2017-03-26 06:48] LABS: HEMATOCRIT 26.2 % (38.0-50.0); HEMOGLOBIN 8.3 gm/dL (13.0-16.0); MEAN CELL VOLUME 87.6 FL (83-96); MEAN CORPUSCULAR HEMOGLOBIN 27.6 PG (28-34); MEAN CORPUSCULAR HGB CONC 31.5 g/dL (30-36); MEAN PLATELET VOLUME 8.3 FL (6.5-11.5); RED BLOOD COUNT 2.99 X10e (3.90-5.60); RED CELL DISTRIBUTION WIDTH 16.4 % (11.0-15.5)
[2017-03-26 07:34] LABS: ALBUMIN SERUM 2.1 g/dL (3.5-5.0); BILIRUBIN,TOTAL 0.3 mg/dL (0.2-2.0); BUN/CREATININE RATIO 41.33; CALCIUM SERUM 10.6 mg/dL (8.4-10.2); CREATININE SERUM 1.5 mg/dL (0.6-1.4); GLOM FILT RATE Estimated 53.5 mL/min (>60); POTASSIUM 3.7 mmol/L (3.5-5.1); PROTEIN TOTAL SERUM 5.4 g/dL (6.0-8.3)
[2017-03-26 07:43] LABS: PHOSPHOROUS 2.8 mg/dL (2.5-4.6)
[2017-03-27 05:49] LABS: HEMATOCRIT 23.7 % (38.0-50.0); HEMOGLOBIN 7.5 gm/dL (13.0-16.0); MEAN CELL VOLUME 86.9 FL (83-96); MEAN CORPUSCULAR HEMOGLOBIN 27.3 PG (28-34); MEAN CORPUSCULAR HGB CONC 31.4 g/dL (30-36); MEAN PLATELET VOLUME 8.8 FL (6.5-11.5); RED BLOOD COUNT 2.73 X10e (3.90-5.60); RED CELL DISTRIBUTION WIDTH 16.1 % (11.0-15.5); WHITE BLOOD COUNT 10.6 X10e3 (4.0-10.5)
[2017-03-27 06:36] LABS: CALCIUM SERUM 9.9 mg/dL (8.4-10.2); CREATININE SERUM 1.5 mg/dL (0.6-1.4); GLOM FILT RATE Estimated 53.5 mL/min (>60); POTASSIUM 3.8 mmol/L (3.5-5.1)
[2017-03-28 06:21] LABS: HEMATOCRIT 24.3 % (38.0-50.0); HEMOGLOBIN 7.7 gm/dL (13.0-16.0); MEAN CELL VOLUME 87.9 FL (83-96); MEAN CORPUSCULAR HEMOGLOBIN 27.9 PG (28-34); MEAN CORPUSCULAR HGB CONC 31.7 g/dL (30-36); MEAN PLATELET VOLUME 9.3 FL (6.5-11.5); RED BLOOD COUNT 2.76 X10e (3.90-5.60); RED CELL DISTRIBUTION WIDTH 16.3 % (11.0-15.5); WHITE BLOOD COUNT 8.8 X10e3 (4.0-10.5)
[2017-03-28 06:48] LABS: BILIRUBIN,TOTAL 0.1 mg/dL (0.2-2.0); CALCIUM SERUM 10.6 mg/dL (8.4-10.2); CREATININE SERUM 1.5 mg/dL (0.6-1.4); GLOM FILT RATE Estimated 53.5 mL/min (>60); MAGNESIUM 1.7 mg/dL (1.6-3.0); PHOSPHOROUS 2.9 mg/dL (2.5-4.6); POTASSIUM 3.5 mmol/L (3.5-5.1)
[2017-03-29 00:18] LABS: CALCIUM (PTHINTACT) 10.4 mg/dL (8.6-10.3)
[2017-03-29 16:12] LABS: CALCIUM (PTHINTACT) 10.1 mg/dL (8.6-10.3)
== END 2017-03-28 21:03 | DRG 853 ==
LOC: CED 09:46 → CSUR 17:51 → CICCU3 17:52 → CPACUOF 17:52 → C3A PCU 18:05 → CSUR 18:05 → CPACUOF 18:05 → CICCU3 18:05 → CPACUOF 02-20 04:55 → CICCU3 02-20 04:55 → C3A PCU 02-22 01:28 → CICCU2 02-25 19:14 → C3A PCU 03-01 19:26 → CICCU3 03-03 09:32 → C3A PCU 03-06 12:27
PROVIDERS: Emergency Medicine; Family Medicine; Internal Medicine; Internal Medicine Nephrology; Internal Medicine Pulmonary Disease; Nurse Practitioner Family; Obstetrics & Gynecology; Radiology Diagnostic Radiology; Specialist; Surgery
PROC: 0DBA0ZZ Excision of Jejunum, Open Approach (ICD-10-PCS; 2017-02-19)
PROC: 0D1L0Z4 Bypass Transverse Colon to Cutaneous, Open Approach (ICD-10-PCS; 2017-02-19)
PROC: 05HM33Z Insertion of Infusion Device into Right Internal Jugular Vein, Percutaneous Approach (ICD-10-PCS; 2017-02-19)
PROC: B543ZZA Ultrasonography of Right Jugular Veins, Guidance (ICD-10-PCS; 2017-02-19)
PROC: 0DBL0ZZ Excision of Transverse Colon, Open Approach (ICD-10-PCS; principal; 2017-02-19 17:00)
PROC: 05HN33Z Insertion of Infusion Device into Left Internal Jugular Vein, Percutaneous Approach (ICD-10-PCS; 2017-02-20)
PROC: B514YZA Fluoroscopy of Left Jugular Veins using Other Contrast, Guidance (ICD-10-PCS; 2017-02-20)
PROC: B544ZZA Ultrasonography of Left Jugular Veins, Guidance (ICD-10-PCS; 2017-02-20)
PROC: 02HV33Z Insertion of Infusion Device into Superior Vena Cava, Percutaneous Approach (ICD-10-PCS; 2017-02-23)
PROC: B518YZA Fluoroscopy of Superior Vena Cava using Other Contrast, Guidance (ICD-10-PCS; 2017-02-23)
PROC: B548ZZA Ultrasonography of Superior Vena Cava, Guidance (ICD-10-PCS; 2017-02-23)
PROC: 5A1945Z Respiratory Ventilation, 24-96 Consecutive Hours (ICD-10-PCS; 2017-02-27)
PROC: 0D5 Gastrointestinal System, Destruction (ICD-10-PCS; 2017-02-27)
PROC: 0DBE0ZZ Excision of Large Intestine, Open Approach (ICD-10-PCS; 2017-02-27)
PROC: 0D580ZZ Destruction of Small Intestine, Open Approach (ICD-10-PCS; 2017-02-27)
PROC: 0BH18EZ Insertion of Endotracheal Airway into Trachea, Via Natural or Artificial Opening Endoscopic (ICD-10-PCS; 2017-02-27)
PROC: 30233L1 Transfusion of Nonautologous Fresh Plasma into Peripheral Vein, Percutaneous Approach (ICD-10-PCS; 2017-02-27)
PROC: 30233K1 Transfusion of Nonautologous Frozen Plasma into Peripheral Vein, Percutaneous Approach (ICD-10-PCS; 2017-02-27)
PROC: 30233N1 Transfusion of Nonautologous Red Blood Cells into Peripheral Vein, Percutaneous Approach (ICD-10-PCS; 2017-02-27)
PROC: B420YZZ Computerized Tomography (CT Scan) of Abdominal Aorta using Other Contrast (ICD-10-PCS; 2017-02-27)
PROC: B42 Imaging, Lower Arteries, Computerized Tomography (CT Scan) (ICD-10-PCS; 2017-02-27)
PROC: B42CYZZ Computerized Tomography (CT Scan) of Pelvic Arteries using Other Contrast (ICD-10-PCS; 2017-02-27)
PROC: 0D9630Z Drainage of Stomach with Drainage Device, Percutaneous Approach (ICD-10-PCS; 2017-03-02)
PROC: 0D9630Z Drainage of Stomach with Drainage Device, Percutaneous Approach (ICD-10-PCS; 2017-03-10)
PROC: 02HV33Z Insertion of Infusion Device into Superior Vena Cava, Percutaneous Approach (ICD-10-PCS; 2017-03-24)
PROC: 4A02X4A Measurement of Cardiac Electrical Activity, Guidance, External Approach (ICD-10-PCS; 2017-03-24)
DX: A41.9 Sepsis, unspecified organism (principal); R65.21 Severe sepsis with septic shock; J96.01 Acute respiratory failure with hypoxia; K63.1 Perforation of intestine (nontraumatic); K26.5 Chronic or unspecified duodenal ulcer with perforation; G92 Toxic encephalopathy; E43 Unspecified severe protein-calorie malnutrition; E87.2 Acidosis; N17.9 Acute kidney failure, unspecified; N18.3 Chronic kidney disease, stage 3 (moderate); K92.2 Gastrointestinal hemorrhage, unspecified; T81.19XA Other postprocedural shock, initial encounter; D62 Acute posthemorrhagic anemia; N39.0 Urinary tract infection, site not specified; F20.0 Paranoid schizophrenia; Q61.3 Polycystic kidney, unspecified; K91.840 Postprocedural hemorrhage of a digestive system organ or structure following a digestive system procedure; L02.211 Cutaneous abscess of abdominal wall; I82.621 Acute embolism and thrombosis of deep veins of right upper extremity; E31.20 Multiple endocrine neoplasia [MEN] syndrome, unspecified; E87.6 Hypokalemia; J44.9 Chronic obstructive pulmonary disease, unspecified; F17.210 Nicotine dependence, cigarettes, uncomplicated; Z86.718 Personal history of other venous thrombosis and embolism; Z86.711 Personal history of pulmonary embolism; K21.9 Gastro-esophageal reflux disease without esophagitis; N20.0 Calculus of kidney; I12.9 Hypertensive chronic kidney disease with stage 1 through stage 4 chronic kidney disease, or unspecified chronic kidney disease; Z87.442 Personal history of urinary calculi; Z90.49 Acquired absence of other specified parts of digestive tract; E83.39 Other disorders of phosphorus metabolism; D69.6 Thrombocytopenia, unspecified; E83.52 Hypercalcemia; Z68.20 Body mass index [BMI] 20.0-20.9, adult
CPT/HCPCS: 36415; 36600; 51702; 71010; 74174; 74176; 74240; 74241; 76937; 76942; 77001; 77002; 80048; 80053; 80076; 81003; 82140; 82150; 82274; 82306; 82308; 82310; 82550; 82553; 82570; 82728; 82803; 82947; 83540; 83550; 83605; 83615; 83690; 83735; 83970; 84100; 84132; 84134; 84300; 84443; 84478; 84484; 84550; 85014; 85018; 85025; 85027; 85044; 85610; 85730; 86850; 86870; 86885; 86900; 86901; 86922; 87040; 87070; 87075; 87086; 87205; 87340; 87493; 88307; 89190; 93005; 93971; 94002; 94003; 94010; 94640; 94760; 94761; 96361; 96374; 96375; 97110; 97116; 97163; 97164; 97165; 97530; 97535; 99285; C1729; C1751; C1769; C1894; C9113; J0330; J1170; J1450; J1630; J1644; J1650; J1720; J1815; J2060; J2248; J2250; J2270; J2310; J2370; J2405; J2543; J2710; J2916; J2997; J3010; J3243; J3370; J3475; J3480; J3486; J7060; P9016; P9047; P9059; Q9967